=== PATIENT | female | born 2000 | race Caucasian/White ===

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

== ENCOUNTER 2018-02-28 21:31 | Emergency (ER) | payer BC, OTHER ==
[~2018-02-28] VITALS: Ht 172.7 cm; Wt 82.8 kg
[~2018-02-28 21:31] MED LIST changes: +ACET-1256 PO; -ESCI10TA17 PO; -GABA-112 PO; +IBUP-103 PO; -IBUP-1450 PO; +MULT-513 PO; -NAPR1TAB48 PO
[2018-02-28 21:39] VITALS: TEMP 36.7; Ht 172.7 cm; Wt 82.8 kg
[2018-02-28] MEDS ORDERED: ONDANSETRON INJ 2 MG/ML 2 ML VIAL IV STA (21:45)
[2018-02-28] MEDS ORDERED: PHENAZOPYRIDINE HCL 200 MG TAB PO STA (21:45)
[2018-02-28] MEDS ORDERED: SODIUM CHLORIDE 0.9% 1000ML 1,000 ML IV STA (21:45)
[2018-02-28] MEDS ORDERED: KETOROLAC TROMETHAMINE 30 MG/ML VIAL IV STA (21:45)
[2018-02-28 22:41] LABS: HEMATOCRIT 40.4 % (37-47); HEMOGLOBIN 13.7 g/dL (12.0-16.0); MEAN CELL VOLUME 98.5 fL (80-100); MEAN CORPUSCULAR HEMOGLOBIN 33.4 pg (25-34); MEAN CORPUSCULAR HGB CONC 33.9 g/dl (32-36); MEAN PLATELET VOLUME 9.9 fL (7.4-10.4); PLATELET COUNT 221 K/uL (130-400); RED CELL DISTRIBUTION WIDTH CV 12.1 % (11.5-14.5); RED CELL DISTRIBUTION WIDTH SD 43.7 fL (36.4-46.3); WHITE BLOOD COUNT 9.32 K/uL (4.8-10.8)
[2018-02-28] MEDS ORDERED: PHEN-876 PO (22:55)
[2018-02-28] MEDS ORDERED: SULF800T23 PO (22:55)
[2018-02-28 22:57] VITALS: BP 132/89; PULSE 95; O2SAT 96
[2018-02-28 22:59] LABS: CALCIUM 9.3 mg/dl (8.5-10.1); CREATININE 0.82 mg/dl (0.60-1.20); POTASSIUM 3.7 mmol/L (3.5-5.1)
--- NOTE | 2018-02-28 23:19 | EMERGENCY ROOM VISIT NOTE ---
ED Visit Note First contact with patient: 21:41 CHIEF COMPLAINT: Frequent and painful urination for 3 hours HISTORY OF PRESENT ILLNESS: Patient is a 18-year-old female with past medical history significant for dysautonomia/POTS and Chuck-Danlos syndrome who presents emergency department complete by her boyfriend for evaluation of urinary symptoms that started acutely a couple of hours ago. Patient reports that she just moved here from [place]. She reports burning with urination, urinary frequency, urgency and a sensation of incomplete emptying that started a couple of hours ago. She reports that she is prone to urinary tract infection secondarily to the Chuck-Danlos syndrome. Her last UTI was a couple of months ago. Patient reports only one history of a kidney infection and no history of kidney stones. She notes some mild midline low back pain, but no unilateral back or flank pain. She has been nauseous but has not vomited. No documented fevers. She took Azo and ibuprofen without relief of her symptoms and presently rates her discomfort a 7/10. She is sexually active with an IUD in place. She denies any vaginal discharge or chance of . REVIEW OF SYSTEMS: Review of systems as per HPI. All other systems reviewed were negative. 10 systems reviewed. PMH: Electronic medical records are reviewed and summarized as above/below. See Problem List. SOCIAL HISTORY: Patient lives locally with her boyfriend, just moved back after spending the summer in [place]. 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 She does not smoke. PHYSICAL EXAM: Vital Signs: Reviewed Nurse's notes. CONSTITUTIONAL: Patient is an uncomfortable appearing 18-year-old female who is awake and alert and laying on the gurney in mild distress due to her stated complaint. HEART: Tachycardic rate and rhythm. No murmur appreciated. LUNGS: Clear to auscultation. ABDOMEN: Bowel sounds are present. Abdomen is soft, nontender nondistended. No guarding or rebound. No suprapubic tenderness. No CVA tenderness. EMERGENCY DEPARTMENT COURSE: IV lock was initiated. Patient was hydrated with a liter of normal saline solution given Pyridium 200 mg orally, Zofran 4 mg IV and Toradol 30 mg IV. Urinalysis, CBC, PRP and serum hCG were performed. Patient was reassessed, and felt significantly improved. She was sitting comfortably on the gurney. She tolerated oral fluids. Heart rate had improved into the 90s. She rated her to pain a 2/10. Urine microscopy noted greater than 30 WBCs, no red blood cells. Urine culture is pending. CBC reveals a normal white count. She is not anemic. Electrolytes and renal functions are normal. Serum hCG is negative. Given the patient's symptoms, and urine microscopy I do feel prudent to cover her for a UTI, with urine culture pending. She will be placed on Bactrim. She was also prescribed Pyridium for symptomatic relief. She was educated on the worrisome signs or symptoms for which she should return to the emergency department, including but not limited to fevers, back or flank pain, vomiting or worsening symptoms. Patient expressed understanding of this and was agreeable. She was discharged to home in good condition. Differential diagnoses entertained included UTI, cystitis, interstitial cystitis , hemorrhagic cystitis, vaginitis, cervicitis, pyelonephritis, IUD complication , PID, tubo-ovarian abscess, among others. Medication reconciliation: I attest that I have personally reviewed the patient' s current medication list. Blood pressure screening: Patient was found to have a slightly elevated blood pressure due to circumstances. I do not believe that the patient requires hypertension monitoring. Problem List Medical Problems: (1) Back pain Status: Resolved (2) Dysautonomia Status: Chronic (3) Chuck-Danlos disease Status: Chronic (4) Fatigue Status: Resolved (5) Injury of left knee Status: Resolved (6) POTS (postural orthostatic tachycardia syndrome) Status: Chronic (7) SOB (shortness of breath) Status: Resolved (8) Vaginal candidiasis Status: Resolved Current/Historical Medications Scheduled Buspirone Hcl (Buspar), 15 MG PO BID Metoprolol Tartrate (Lopressor), 25 MG PO BID Multivitamins/Minerals (Mvi With Minerals), 1 TAB PO DAILY Phenazopyridine HCl (Pyridium), 200 MG PO TID Sulfa/Trimethoprim (Bactrim Ds 800MG/160MG), 1 TAB PO BID Scheduled PRN Acetaminophen (Tylenol), 1 TAB PO DAILY PRN for Pain Ibuprofen Tab (Advil), 400 MG PO BID PRN for Headache or Pain Trazodone Hcl (Trazodone), 50-150 MG PO HS PRN for Insomnia Allergies Coded Allergies: No Known Allergies (Unverified , 08/05/17) Vital Signs Date Time Temp Pulse Resp B/P (MAP) Pulse Ox O2 Delivery O2 Flow Rate FiO2 02/28/18 22:57 95 18 132/89 96 Room Air 02/28/18 21:39 36.7 131 18 143/89 96 Room Air Laboratory Results 02/28/18 22:20 02/28/18 22:20 Test 02/28/18 22:00 02/28/18 22:20 Urine Color ORANGE Urine Appearance SLIGHTLY CLOUDY (CLEAR) Urine pH (4.5-7.5) Urine Specific [place] 1.027 (1.000-1.030) Urine Protein NEG (NEG) Urine Glucose (UA) (NEG) Urine Ketones (NEG) Urine Occult Blood (NEG) Urine Nitrite (NEG) Urine Bilirubin (NEG) Urine Urobilinogen (NEG) Urine Leukocyte Esterase (NEG) Urine RBC 0-4 /hpf (0-4) Urine WBC >30 /hpf (0-5) Urine Epithelial Cells 10-20 /lpf (0-5) Urine Bacteria NEG (NEG) Urine Hyaline Casts 1-5 /lpf (0-5) Red Blood Count 4.10 M/uL (4.2-5.4) Mean Corpuscular Volume 98.5 fL (80-100) Mean Corpuscular Hemoglobin 33.4 pg (25-34) Mean Corpuscular Hemoglobin Concent 33.9 g/dl (32-36) RDW Standard Deviation 43.7 fL (36.4-46.3) RDW Coefficient of Variation 12.1 % (11.5-14.5) Mean Platelet Volume 9.9 fL (7.4-10.4) Anion Gap 7.0 mmol/L (3-11) Est Creatinine Clear Calc Drug Dose 123.4 ml/min Estimated GFR () 119.4 Estimated GFR (Non- 103.0 BUN/Creatinine Ratio 12.7 (10-20) Calcium Level 9.3 mg/dl (8.5-10.1) Medications Administered Medications (Trade) Dose Ordered Sig/Ping Route Start Time Stop Time Status Last Admin Dose Admin Sodium Chloride 1,000 ml @ 999 mls/hr Q1H1M STAT IV 02/28/18 21:45 02/28/18 22:45 DC 02/28/18 22:23 999 MLS/HR Ketorolac Tromethamine (Toradol Inj) 30 mg NOW STAT IV 02/28/18 21:45 02/28/18 21:54 DC 02/28/18 22:22 30 MG Ondansetron HCl (Zofran Inj) 4 mg NOW STAT IV 02/28/18 21:45 02/28/18 21:54 DC 02/28/18 22:22 4 MG Phenazopyridine HCl (Pyridium Tab) 200 mg NOW STAT PO 02/28/18 21:45 02/28/18 21:54 DC 02/28/18 22:22 200 MG Departure Information Impression Primary Impression: Urinary tract infection Prescriptions Phenazopyridine HCl (Pyridium) 200 Mg Tab 200 MG PO TID, #6 TAB Prov: Genie Apodaca PA 02/28/18 Sulfa/Trimethoprim (Bactrim Ds 800MG/160MG) Tab 1 TAB PO BID, #14 TAB Prov: Genie Apodaca PA 02/28/18 Referrals No Doctor, Assigned (PCP) Patient Instructions My [facility] Additional Instructions Trimethoprim-Sulfamethoxazole(Bactrim DS): Take one pill twice daily for 7 days for your urine infection. All antibiotics can cause diarrhea. If this occurs and you feel worse or it does not resolve in 1-2 days follow up with your doctor or return to the Emergency Department as this could be signs of serious underlying problems. Any medication can cause an allergic reaction, stop the pills immediately and return to the ER for rash, hives, breathing difficulties, or swelling. Pyridium 200mg: Take one pill three times daily as needed for urinary discomfort. This medication will turn your urine orange. This is normal and nothing to be concerned about. Ibuprofen(Motrin, Advil) may be used for fever or pain. Use 600mg every six hours as needed. Take with food. Avoid using more than 2400mg in a 24 hour period. Do not use 2400mg per day for more than three consecutive days without physician direction. Prolonged inappropriate use can lead to stomach upset or ulcers. This is available over the counter and typically comes in 200mg tablets. (AND/OR) Acetaminophen(Tylenol) may be used for fever or pain. Use 1000mg every eight hours as needed. Avoid using more than 3000mg in a 24 hour period. This is available over the counter. Read all the package inserts or medication information paperwork provided. If you have any questions or concerns call your primary provider, pharmacist or the ER for assistance. Rest and drink plenty of fluids. Continue current medications. Return to the ER immediately for worsening or persistent abdominal pain, vomiting, fevers, back or flank pain, worsening of your condition, or as needed. Follow up with your primary physician within 2-3 days for a recheck of the current condition.
[2018-02-28] MEDS ORDERED: PHENAZOPYRIDINE HOME PACK 200 MG VIAL PO ONE (23:30)
[2018-02-28] MEDS ORDERED: SEPTRA DS HOME PACK 1 EA VIAL PO ONE (23:30)
[2018-03-01] MEDS ORDERED: ACET1TAB84 PO (17:18)
[2018-03-01] MEDS ORDERED: CEPH500C PO (19:56)
[2018-03-01] MEDS ORDERED: SACC250C3 PO (19:56)
[2018-03-01] MEDS ORDERED: ONDA4TAB10 SL (19:58)
== END 2018-02-28 23:49 | disposition home or self-care (01) ==
LOC: C.EDB 21:33 → C.EDC 23:49
DX: N39.0 Urinary tract infection, site not specified (principal)

== ENCOUNTER 2018-03-01 16:27 | Emergency (ER) | payer OTHER ==
[~2018-03-01] VITALS: Ht 172.7 cm; Wt 83.2 kg
[~2018-03-01 16:27] MED LIST changes: +PHEN-876 PO; +SULF800T23 PO
[2018-03-01 16:33] VITALS: TEMP 37; Ht 172.7 cm; Wt 83.2 kg
[2018-03-01] MEDS ORDERED: KETOROLAC TROMETHAMINE 30 MG/ML VIAL IV STA (16:40)
[2018-03-01] MEDS ORDERED: ACETAMINOPHEN IV 100 ML IV STA (16:40)
[2018-03-01] MEDS ORDERED: SODIUM CHLORIDE 0.9% 1000ML 2,000 ML IV STA (16:40)
--- NOTE | 2018-03-01 16:53 | EMERGENCY ROOM VISIT NOTE ---
History Report prepared by Yesenia: Nelson Lopez Under the Supervision of: Dr. Wood Loredo M.D. First contact with patient: 16:37 Chief Complaint: ABDOMINAL PAIN Stated Complaint: SEVERE ABDOMINAL PAIN History of Present Illness The patient is a 18 year old female who presents to the Emergency Room with complaints of worsening lower abdominal pain that began four and a half hours ago. Patient states she was seen in the ER yesterday and was diagnosed with a UTI and discharged on Bactrim. She states she was told to return to the ER if her pain worsened. Patient states she came into the ER yesterday due to burning with urination but states that has resolved. She states she has taken 1 dose of her Bactrim. She adds she took ibuprofen after her abdominal pain symptoms began today. Patient adds she has nausea but not currently in the ER. Patient states she has a history of kidney infections last year. She denies a history of kidney stones. Patient has Kyleena and denies having a menstrual period. She states she has POTS which she takes Lopressor for. Patient states her last bowel movement was 2 hours ago and that it was normal. Patient denies fevers, vaginal bleeding/discharge, chills, cough, diarrhea, and congestion. Patient denies any concerns for an STI or a history of STIs. Patient is present with her boyfriend. Source of History: patient Onset: Four and a half hours ago Position: abdomen (Lower abdomen) Timing: worsening Modifying Factors (Relieving): other (None) Associated Symptoms: No fevers, No chills, No nausea, No diarrhea, No urinary symptoms Note: Negative vaginal bleeding/discharge. Review of Systems See HPI for pertinent positives and negatives. A total of ten systems were reviewed and were otherwise negative. Past Medical & Surgical Medical Problems: (1) Back pain (2) Dysautonomia (3) Chuck-Danlos disease (4) Fatigue (5) Injury of left knee (6) POTS (postural orthostatic tachycardia syndrome) (7) SOB (shortness of breath) (8) Vaginal candidiasis Family History Cancer Diabetes mellitus FHx: gallbladder disease Heart disease Hypertension Lung disease Social History Smoking Status: Never Smoker Alcohol Use: none Marital Status: Housing Status: lives with significant other Occupation Status: employed Current/Historical Medications Scheduled Buspirone Hcl (Buspar), 15 MG PO BID Cephalexin Monohydrate (Keflex), 500 MG PO BID Metoprolol Tartrate (Lopressor), 25 MG PO BID Ondasetron Odt (Zofran Odt), 4 MG SL Q6H Saccharomyces Boulardii (Florastor), 1 CAP PO BID Scheduled PRN Acetaminophen (Tylenol), 1 TAB PO DAILY PRN for Pain Ibuprofen Tab (Advil), 400 MG PO BID PRN for Headache or Pain Allergies Coded Allergies: No Known Allergies (Unverified , 03/01/18) Physical Exam Vital Signs Date Time Temp Pulse Resp B/P (MAP) Pulse Ox O2 Delivery O2 Flow Rate FiO2 03/01/18 20:09 85 18 112/73 99 03/01/18 18:33 84 20 106/61 98 Room Air 03/01/18 16:33 37.0 95 20 137/72 97 Room Air Physical Exam GENERAL: Awake, alert, fatigued, uncomfortable-appearing, in no distress HENT: Normocephalic, atraumatic. Oropharynx unremarkable. Mucous membranes are dry. EYES: Normal conjunctiva. Sclera non-icteric. NECK: Supple. No nuchal rigidity. FROM. No JVD. RESPIRATORY: Clear to auscultation. CARDIAC: Regular rate, normal rhythm. Extremities warm and well perfused. Pulses equal. ABDOMEN: Soft, non-distended. Mild lower abdominal tenderness to palpation. No rebound or guarding. No masses. RECTAL: Deferred. MUSCULOSKELETAL: Chest examination reveals no tenderness. The back is symmetrical on inspection without obvious abnormality. There is no CVA tenderness to palpation. No joint edema. LOWER EXTREMITIES: Calves are equal size bilaterally and non-tender. No edema. No discoloration. NEURO: Normal sensorium. No sensory or motor deficits noted. SKIN: No rash or jaundice noted. Medical Decision & Procedures Laboratory Results 03/01/18 17:22 Red Blood Count 3.93, Mean Corpuscular Volume 99.2, Mean Corpuscular Hemoglobin 33.8, Mean Corpuscular Hemoglobin Concent 34.1, Mean Platelet Volume 10.0, Neutrophils (%) (Auto) 71.2, Lymphocytes (%) (Auto) 22.7, Monocytes (%) (Auto) 5.5, Eosinophils (%) (Auto) 0.4, Basophils (%) (Auto) 0.1, Neutrophils # (Auto) 5.71, Lymphocytes # (Auto) 1.82, Monocytes # (Auto) 0.44, Eosinophils # (Auto) 0.03, Basophils # (Auto) 0.01 03/01/18 17:22 Test 03/01/18 15:20 03/01/18 17:22 Urine Color YELLOW Urine Appearance CLEAR (CLEAR) Urine pH 7.0 (4.5-7.5) Urine Specific [place] 1.006 (1.000-1.030) Urine Protein NEG (NEG) Urine Glucose (UA) NEG (NEG) Urine Ketones NEG (NEG) Urine Occult Blood NEG (NEG) Urine Nitrite NEG (NEG) Urine Bilirubin NEG (NEG) Urine Urobilinogen NEG (NEG) Urine Leukocyte Esterase NEG (NEG) White Blood Count 8.02 K/uL (4.8-10.8) Red Blood Count 3.93 M/uL (4.2-5.4) Hemoglobin 13.3 g/dL (12.0-16.0) Hematocrit 39.0 % (37-47) Mean Corpuscular Volume 99.2 fL (80-100) Mean Corpuscular Hemoglobin 33.8 pg (25-34) Mean Corpuscular Hemoglobin Concent 34.1 g/dl (32-36) Platelet Count 211 K/uL (130-400) Mean Platelet Volume 10.0 fL (7.4-10.4) Neutrophils (%) (Auto) 71.2 % Lymphocytes (%) (Auto) 22.7 % Monocytes (%) (Auto) 5.5 % Eosinophils (%) (Auto) 0.4 % Basophils (%) (Auto) 0.1 % Neutrophils # (Auto) 5.71 K/uL (1.4-6.5) Lymphocytes # (Auto) 1.82 K/uL (1.2-3.4) Monocytes # (Auto) 0.44 K/uL (0.11-0.59) Eosinophils # (Auto) 0.03 K/uL (0-0.5) Basophils # (Auto) 0.01 K/uL (0-0.2) RDW Standard Deviation 44.3 fL (36.4-46.3) RDW Coefficient of Variation 12.1 % (11.5-14.5) Immature Granulocyte % (Auto) 0.1 % Immature Granulocyte # (Auto) 0.01 K/uL (0.00-0.02) Anion Gap 4.0 mmol/L (3-11) Est Creatinine Clear Calc Drug Dose 112.7 ml/min Estimated GFR () 106.7 Estimated GFR (Non- 92.0 BUN/Creatinine Ratio 9.8 (10-20) Calcium Level 8.4 mg/dl (8.5-10.1) Total Bilirubin 0.5 mg/dl (0.2-1) Direct Bilirubin 0.1 mg/dl (0-0.2) Aspartate Amino Transf (AST/SGOT) 18 U/L (15-37) Alanine Aminotransferase (ALT/SGPT) 34 U/L (12-78) Alkaline Phosphatase 95 U/L (45-117) Total Protein 7.6 gm/dl (6.4-8.2) Albumin 4.0 gm/dl (3.4-5.0) Lipase 130 U/L (73-393) Human Chorionic Gonadotropin, Qual NEG (NEG) Laboratory results reviewed by me Medications Administered Medications (Trade) Dose Ordered Sig/Ping Route Start Time Stop Time Status Last Admin Dose Admin Sodium Chloride 2,000 ml @ 999 mls/hr Q2H1M STAT IV 03/01/18 16:40 03/01/18 18:40 DC 03/01/18 17:24 999 MLS/HR Ketorolac Tromethamine (Toradol Inj) 15 mg NOW STAT IV 03/01/18 16:40 03/01/18 16:45 DC 03/01/18 17:25 15 MG Acetaminophen 100 ml @ 400 mls/hr NOW STAT IV 03/01/18 16:40 03/01/18 16:54 DC 03/01/18 17:25 400 MLS/HR Cephalexin Monohydrate (Keflex Cap) 500 mg NOW STAT PO 03/01/18 19:51 03/01/18 19:53 DC 03/01/18 20:05 500 MG ED Course 1640: The patient was evaluated in room C2. A complete history and physical exam was performed. 2005: I reevaluated the patient. Discussed results and discharge instructions. She verbalized understanding and agreement. The patient is ready for discharge. Medical Decision I reviewed the patient's past medical history, medications, and the nursing notes as described above. Differential diagnosis: Etiologies such as appendicitis, diverticulitis, PUD, biliary pathology, UTI, pancreatitis, obstruction, mesenteric ischemia, aortic pathology, infections, inflammatory bowel disease, renal colic, as well as others were entertained. The patient is a 18-year-old woman with a past medical history of either his Danlos syndrome, TOT S syndrome presents emergency department with worsening lower abdominal/suprapubic pain after being seen in the ED yesterday for UTI discharged on Bactrim per hpi. On arrival patient is uncomfortable but no acute distress, afebrile stable vital signs. On exam patient has mild lower abdominal/suprapubic tenderness that is generalized throughout her lower abdomen without any discrete uterine lateral tenderness. Of note, the patient denies any vaginal discharge or concerns for STI's. Moreover she reports she is amenorrheic secondary to her indications. WBC within normal limits. Chemistry unremarkable. UA negative although after starting Bactrim. She was reevaluated and feeling improved after IV fluids, Toradol. Thus possibly related to GI upset related to Bactrim. We agreed to change to Keflex and see if her symptoms continue to improve. Patient constantly denies any concerns for STI's and therefore prefers to defer testing/exam/ultrasound. However, she is instructed to return should her symptoms continue to be worse as this should certainly be evaluated if not having any improvement. Findings and plan for follow-up reviewed with patient. Patient agreeable and d/c'd per discharge instructions. Medication Reconcilliation Current Medication List: was personally reviewed by me Blood Pressure Screening Patient's blood pressure: Normal blood pressure Blood pressure disposition: Did not require urgent referral Impression Primary Impression: Lower abdominal pain Scribe Attestation The scribe's documentation has been prepared under my direction and personally reviewed by me in its entirety. I confirm that the note above accurately reflects all work, treatment, procedures, and medical decision making performed by me. Departure Information Dispostion Home / Self-Care Prescriptions Ondasetron Odt (ZOFRAN ODT) 4 Mg Tab 4 MG SL Q6H for Nausea, #6 TAB Prov: Wood Loredo M.D. 03/01/18 Saccharomyces Boulardii (Florastor) 250 Mg Cap 1 CAP PO BID for 10 Days, #20 CAP Prov: Wood Loredo M.D. 03/01/18 Cephalexin Monohydrate (Keflex) 500 Mg Cap 500 MG PO BID for 5 Days, #10 CAP Prov: Wood Loredo M.D. 03/01/18 Referrals No Doctor, Assigned (PCP) Patient Instructions ED Abdominal Pain Unkn Cause, ED UTI Cystitis Female, My [facility] Additional Instructions Please follow up with your primary care physician in the next 1-3 days for re- evaluation. Your symptoms today may be related to GI upset related to your Bactrim or possibly residual symptoms from your UTI with associated mild dehydration. Otherwise, your exam and lab results did not show signs of an emergent condition at this time. Acetaminophen or ibuprofen for pain and fevers as needed. Keflex as directed. Florastor, probiotic, to help prevent antibiotic associated diarrhea. Zofran as needed for nausea. Drink plenty of fluids to ensure hydration. Return to the emergency department for worsening symptoms as described in the accompanying instructions.
[2018-03-01] MEDS ORDERED: ACET1TAB84 PO (17:18)
[2018-03-01 17:40] LABS: BASO % 0.1 %; BASO ABS # 0.01 K/uL (0-0.2); EOS % 0.4 %; EOS ABS # 0.03 K/uL (0-0.5); HEMOGLOBIN 13.3 g/dL (12.0-16.0); IG# 0.01 K/uL (0.00-0.02); LYMPH % 22.7 %; LYMPH ABS # 1.82 K/uL (1.2-3.4); MEAN CELL VOLUME 99.2 fL (80-100); MEAN CORPUSCULAR HEMOGLOBIN 33.8 pg (25-34); MEAN CORPUSCULAR HGB CONC 34.1 g/dl (32-36); MONO % 5.5 %; MONO ABS # 0.44 K/uL (0.11-0.59); NEUT % 71.2 %; NEUT ABS # 5.71 K/uL (1.4-6.5); PLATELET COUNT 211 K/uL (130-400); RED CELL DISTRIBUTION WIDTH CV 12.1 % (11.5-14.5); RED CELL DISTRIBUTION WIDTH SD 44.3 fL (36.4-46.3); WHITE BLOOD COUNT 8.02 K/uL (4.8-10.8)
[2018-03-01 18:03] LABS: CALCIUM 8.4 mg/dl (8.5-10.1); CREATININE 0.9 mg/dl (0.60-1.20); POTASSIUM 3.7 mmol/L (3.5-5.1); TOTAL PROTEIN 7.6 gm/dl (6.4-8.2)
[2018-03-01] MEDS ORDERED: CEPHALEXIN MONOHYDRATE 250 MG CAP PO STA (19:51)
[2018-03-01] MEDS ORDERED: CEPH500C PO (19:56)
[2018-03-01] MEDS ORDERED: SACC250C3 PO (19:56)
[2018-03-01] MEDS ORDERED: ONDA4TAB10 SL (19:58)
[2018-03-01 20:09] VITALS: BP 112/73; PULSE 85; O2SAT 99
== END 2018-03-01 20:09 | disposition home or self-care (01) ==
LOC: C.EDB 16:28 → C.EDC 20:09
DX: R10.30 Lower abdominal pain, unspecified (principal); Q79.6 Ehlers-Danlos syndromes

== ENCOUNTER 2021-04-20 13:00 | Inpatient (IN) ==
[2021-04-20] MEDS ORDERED: ACETAMINOPHEN 325 MG TAB PO STA (14:37)
--- NOTE | 2021-04-20 14:42 | Emergency Department Note ---
Impression & Plan Suicidal ideation, Depression ED Provider Note NAME: SHAY GILBERT AGE: 21 SEX: F ARRIVES VIA: Walk-In INFORMANT: Patient, ED PROVIDER(S): Wood Loredo MD CHIEF COMPLAINT: Suicidal ideawtion. PLAN: Disposition: Inpatient psychiatric treatment / [facility] MEDICAL DECISION MAKING: The patient is a pleasant 21-year-old woman with a past medical history of depression and suicidal ideation remotely who presents to the emergency department with symptoms of suicidal nation with thoughts of jumping off a bridge over the past 2 days which she reports is related to stress she has been experiencing in her marriage over the past couple of months. She reports that she does feel safe at home with her however. She denies any recent illness including fevers, chills, cough congestion, GI or symptoms. She does report that she feels hopeless. She denies any auditory hallucinations. She reports drinking some beer yesterday but does not drink alcohol regularly. She reports that she is interested in inpatient treatment and had initiated/sought out help today. On arrival the patient is melancholy appearing, easily tearful but no acute distress, afebrile stable vital signs. She has minor linear abrasions to the volar aspect of her left wrist. No significant laceration requiring repair. WBC, H/H, platelets wnl. Chemistry without acidosis. Electrolytes unremarkable. LFTs without significant abnormality. hcg negative. TSH wnl. UA without convincing evidence of infection. Drug screen negative. Covid-19 pcr negative. The patient was medically cleared. Evaluated by psychiatric CM and referral made to [facility] who accepted the patient. 201 signed. Triage Nursing notes reviewed and agree them. Prior medical records reviewed Vital Signs: reviewed and remarkable for no significant abnormalities Differential diagnosis: Mood disorder, infection, hypoglycemia, electrolyte abnormalities, cardiac sources, intracerebral event, toxicologic, trauma, neurologic, as well as other pathologies. ER treatment provided: See below. Laboratory studies: See below HPI: The patient is a pleasant 21-year-old woman with a past medical history of depression and suicidal ideation remotely who presents to the emergency department with symptoms of suicidal nation with thoughts of jumping off a bridge over the past 2 days which she reports is related to stress she has been experiencing in her marriage over the past couple of months. She reports that she does feel safe at home with her however. She denies any recent illness including fevers, chills, cough congestion, GI or symptoms. She does report that she feels hopeless. She denies any auditory hallucinations. She reports drinking some beer yesterday but does not drink alcohol regularly. She reports that she is interested in inpatient treatment and had initiated/sought out help today. ROS: See above HPI for pertinent positives & negatives. A total of 10 systems reviewed and were otherwise negative. PAST MEDICAL HISTORY:See Below PAST SURGICAL HISTORY:See Below FAMILY HISTORY:See Below SOCIAL HISTORY:See Below HOME MEDICATIONS:See Below ALLERGIES:See Below VITALS:See Below PHYSICAL EXAMINATION: GENERAL: Awake, alert, melancholy/tearful-appearing, in no distress HENT: Normocephalic, atraumatic. Oropharynx unremarkable. EYES: Normal conjunctiva. Sclera non-icteric. NECK: Supple. No nuchal rigidity. FROM. No JVD. RESPIRATORY: Clear to auscultation. CARDIAC: Regular rate, normal rhythm. Extremities warm and well perfused. Pulses equal. ABDOMEN: Soft, non-distended. No tenderness to palpation. No rebound or guarding. No masses. RECTAL: Deferred. MUSCULOSKELETAL: Chest examination reveals no tenderness. The back is symmetrical on inspection without obvious abnormality. There is no CVA tenderness to palpation. No joint edema. LOWER EXTREMITIES: Calves are equal size bilaterally and non-tender. No edema. No discoloration. NEURO: Normal sensorium. No sensory or motor deficits noted. SKIN: Linear abrasions to the volar aspect of the left wrist. No rash or jaundice noted. PSYCH: Reports SI with plan. Reports hopelessness. Denies hallucinations. 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 Pneumonia POTS (postural orthostatic tachycardia syndrome) Urinary tract bacterial infections Surgical History No significant past surgical history Family History Other No pertinent family history Social History Smoking Status: Never smoker Hx Alcohol Use: No Preferred Language: Yoruba Communication Ability: Effective Visual Impairment: No Limitations Hearing Ability: Normal Development Executive Required: No Beliefs That Will Affect Care: None current occupational status: employed Feels Safe at Home: Yes Assistive Devices: None Allergies Allergies Allergy/AdvReac Type Severity Reaction Status Date / Time No Known Allergies Allergy Verified 03/13/21 10:56 Home Meds Home Medications Medication Instructions Recorded Confirmed metoprolol succinate 100 mg 50 mg PO DAILY 01/22/20 04/21/21 tablet,extended release 24 hr Results & Data (ED) Vital Signs Vital Signs - 24 hr 04/20/21 13:43 04/20/21 14:16 Temperature 37.1 C Temperature Source Oral Pulse Rate 135 H Pulse Rate [Right Finger] 128 H Respiratory Rate 18 18 Respiratory Effort / Characteristics Non-Labored Spontaneous Non-Labored Spontaneous Respiratory Depth Normal Normal Blood Pressure 121/93 Blood Pressure [Left Arm] 118/88 Blood Pressure Mean 102 Blood Pressure Mean [Left Arm] 98 Blood Pressure Position Sitting Blood Pressure Position [Left Arm] Sitting Pulse Oximetry 96 96 Oxygen Delivery Method Room Air Room Air Sepsis Recent Fever Within 48 Hours No Sepsis New/Unexplained Change in Mental Status N/A Sepsis Action Taken by Nursing No Action Required Laboratory Data Attestation: I reviewed the patient's lab results. Result diagrams: 04/20/21 14:53 04/20/21 14:53 Lab Results 04/20/21 04/20/21 04/20/21 Range/Units 14:53 14:53 14:53 WBC 8.83 (4.8-10.8) K/uL RBC 4.07 L (4.2-5.4) M/uL Hgb 14.0 (12.0-16.0) g/dL Hct 41.7 (37-47) % MCV 102.5 H (80-100) fL MCH 34.4 H (25-34) pg MCHC 33.6 (32-36) g/dL RDW Std Deviation 44.3 (36.4-46.3) fL RDW Coeff of [place] 11.8 (11.5-14.5) % Plt Count 227 (130-400) K/uL MPV 9.7 (7.4-10.4) fL Immature Gran % (Auto) 0.1 % Neut % (Auto) 80.8 % Lymph % (Auto) 15.1 % Pine % (Auto) 3.7 % Eos % (Auto) 0.2 % Baso % (Auto) 0.1 % Neut # (Auto) 7.13 H (1.4-6.5) K/uL Lymph # (Auto) 1.33 (1.2-3.4) K/uL Pine # (Auto) 0.33 (0.11-0.59) K/uL Eos # (Auto) 0.02 (0-0.5) K/uL Baso # (Auto) 0.01 (0-0.2) K/uL Immature Gran # (Auto) 0.01 (0.00-0.02) K/uL Sodium 138 (136-145) mmol/L Potassium 4.0 (3.5-5.1) mmol/L Chloride 107 (98-107) mmol/L Carbon Dioxide 26 (21-32) mmol/L Anion Gap 5.0 (3-11) BUN 10 (7-18) mg/dl Creatinine 0.86 (0.6-1.2) mg/dl Est Cr Clr Drug Dosing 111.7 ml/min Est GFR ( Amer) 110.4 ml/min Est GFR (Non-Af Amer) 95.2 ml/min BUN/Creatinine Ratio 11.2 (10-20) Glucose 93 (70-99) mg/dl Calcium 8.9 (8.5-10.1) mg/dl Total Bilirubin 0.4 (0.2-1) mg/dl AST 22 (15-37) U/L ALT 54 (12-78) U/L Alkaline Phosphatase 76 (45-117) U/L Total Protein 8.1 (6.4-8.2) gm/dl Albumin 3.9 (3.4-5.0) gm/dl Globulin 4.2 H (2.5-4.0) gm/dl Albumin/Globulin Ratio 0.9 (0.9-2) TSH 1.650 (0.300-4.500) uIu/ml HCG, Qual (Negative) Urine Color Urine Appearance (Clear) Urine pH (4.5-7.5) Ur Specific [place] (1.000-1.030) Urine Protein (Negative) Urine Glucose (UA) (Negative) Urine Ketones (Negative) Urine Blood (Negative) Urine Nitrite (Negative) Urine Bilirubin (Negative) Urine Urobilinogen (Negative) Ur Leukocyte Esterase (Negative) Salicylates < 1.7 L (2.8-20) mg/dl Urine Opiates Screen (Neg) Ur Methadone, Qual (Neg) Acetaminophen < 2 L (10-30) ug/ml Urine Barbiturates (Neg) Ur Phencyclidine (PCP) (Neg) U Amphetamin/Meth Scrn (Neg) MDMA (Ecstasy) Screen (Neg) U Benzodiazepines Scrn (Neg) Ur Cocaine Metabolite (Neg) U Marijuana (THC) Screen (Neg) Ethyl Alcohol mg/dL (0-3) mg/dl COVID-19 Eval Order SARS-CoV-2 (PCR) (Negative) 04/20/21 04/20/21 04/20/21 Range/Units 14:53 14:53 15:20 WBC (4.8-10.8) K/uL RBC (4.2-5.4) M/uL Hgb (12.0-16.0) g/dL Hct (37-47) % MCV (80-100) fL MCH (25-34) pg MCHC (32-36) g/dL RDW Std Deviation (36.4-46.3) fL RDW Coeff of [place] (11.5-14.5) % Plt Count (130-400) K/uL MPV (7.4-10.4) fL Immature Gran % (Auto) % Neut % (Auto) % Lymph % (Auto) % Pine % (Auto) % Eos % (Auto) % Baso % (Auto) % Neut # (Auto) (1.4-6.5) K/uL Lymph # (Auto) (1.2-3.4) K/uL Pine # (Auto) (0.11-0.59) K/uL Eos # (Auto) (0-0.5) K/uL Baso # (Auto) (0-0.2) K/uL Immature Gran # (Auto) (0.00-0.02) K/uL Sodium (136-145) mmol/L Potassium (3.5-5.1) mmol/L Chloride (98-107) mmol/L Carbon Dioxide (21-32) mmol/L Anion Gap (3-11) BUN (7-18) mg/dl Creatinine (0.6-1.2) mg/dl Est Cr Clr Drug Dosing ml/min Est GFR ( Amer) ml/min Est GFR (Non-Af Amer) ml/min BUN/Creatinine Ratio (10-20) Glucose (70-99) mg/dl Calcium (8.5-10.1) mg/dl Total Bilirubin (0.2-1) mg/dl AST (15-37) U/L ALT (12-78) U/L Alkaline Phosphatase (45-117) U/L Total Protein (6.4-8.2) gm/dl Albumin (3.4-5.0) gm/dl Globulin (2.5-4.0) gm/dl Albumin/Globulin Ratio (0.9-2) TSH (0.300-4.500) uIu/ml HCG, Qual Negative (Negative) Urine Color Yellow Urine Appearance Clear (Clear) Urine pH 7.5 (4.5-7.5) Ur Specific [place] 1.024 (1.000-1.030) Urine Protein Negative (Negative) Urine Glucose (UA) Negative (Negative) Urine Ketones Negative (Negative) Urine Blood Negative (Negative) Urine Nitrite Negative (Negative) Urine Bilirubin Negative (Negative) Urine Urobilinogen Negative (Negative) Ur Leukocyte Esterase Negative (Negative) Salicylates (2.8-20) mg/dl Urine Opiates Screen (Neg) Ur Methadone, Qual (Neg) Acetaminophen (10-30) ug/ml Urine Barbiturates (Neg) Ur Phencyclidine (PCP) (Neg) U Amphetamin/Meth Scrn (Neg) MDMA (Ecstasy) Screen (Neg) U Benzodiazepines Scrn (Neg) Ur Cocaine Metabolite (Neg) U Marijuana (THC) Screen (Neg) Ethyl Alcohol mg/dL < 3.0 (0-3) mg/dl COVID-19 Eval Order SARS-CoV-2 (PCR) (Negative) 04/20/21 04/20/21 04/20/21 Range/Units 15:20 15:20 15:20 WBC (4.8-10.8) K/uL RBC (4.2-5.4) M/uL Hgb (12.0-16.0) g/dL Hct (37-47) % MCV (80-100) fL MCH (25-34) pg MCHC (32-36) g/dL RDW Std Deviation (36.4-46.3) fL RDW Coeff of [place] (11.5-14.5) % Plt Count (130-400) K/uL MPV (7.4-10.4) fL Immature Gran % (Auto) % Neut % (Auto) % Lymph % (Auto) % [place] % (Auto) % Eos % (Auto) % Baso % (Auto) % Neut # (Auto) (1.4-6.5) K/uL Lymph # (Auto) (1.2-3.4) K/uL [place] # (Auto) (0.11-0.59) K/uL Eos # (Auto) (0-0.5) K/uL Baso # (Auto) (0-0.2) K/uL Immature Gran # (Auto) (0.00-0.02) K/uL Sodium (136-145) mmol/L Potassium (3.5-5.1) mmol/L Chloride (98-107) mmol/L Carbon Dioxide (21-32) mmol/L Anion Gap (3-11) BUN (7-18) mg/dl Creatinine (0.6-1.2) mg/dl Est Cr Clr Drug Dosing ml/min Est GFR ( Amer) ml/min Est GFR (Non-Af Amer) ml/min BUN/Creatinine Ratio (10-20) Glucose (70-99) mg/dl Calcium (8.5-10.1) mg/dl Total Bilirubin (0.2-1) mg/dl AST (15-37) U/L ALT (12-78) U/L Alkaline Phosphatase (45-117) U/L Total Protein (6.4-8.2) gm/dl Albumin (3.4-5.0) gm/dl Globulin (2.5-4.0) gm/dl Albumin/Globulin Ratio (0.9-2) TSH (0.300-4.500) uIu/ml HCG, Qual (Negative) Urine Color Urine Appearance (Clear) Urine pH (4.5-7.5) Ur Specific [place] (1.000-1.030) Urine Protein (Negative) Urine Glucose (UA) (Negative) Urine Ketones (Negative) Urine Blood (Negative) Urine Nitrite (Negative) Urine Bilirubin (Negative) Urine Urobilinogen (Negative) Ur Leukocyte Esterase (Negative) Salicylates (2.8-20) mg/dl Urine Opiates Screen Neg (Neg) Ur Methadone, Qual Neg (Neg) Acetaminophen (10-30) ug/ml Urine Barbiturates Neg (Neg) Ur Phencyclidine (PCP) Neg (Neg) U Amphetamin/Meth Scrn Neg (Neg) MDMA (Ecstasy) Screen Neg (Neg) U Benzodiazepines Scrn Neg (Neg) Ur Cocaine Metabolite Neg (Neg) U Marijuana (THC) Screen Neg (Neg) Ethyl Alcohol mg/dL (0-3) mg/dl COVID-19 Eval Order Covid19 at [facility] SARS-CoV-2 (PCR) NEGATIVE (Negative) Administered Medications Hydroxyzine HCl (Hydroxyzine Hcl 25 Mg Tab) 50 mg PO HSZ PRN PRN Reason: Insomnia Stop: 05/20/21 18:17 Last Admin: 04/20/21 22:26 Dose: 50 mg Documented by: [id number] Discontinued Medications Acetaminophen (Acetaminophen 325 Mg Tab) 650 mg PO NOW STA Stop: 04/20/21 14:38 Last Admin: 04/20/21 15:21 Dose: 650 mg Documented by: [id number] Diazepam (Diazepam 5 Mg Tablet) 5 mg PO NOW ONE Stop: 04/20/21 18:35 Last Admin: 04/20/21 19:05 Dose: 5 mg Documented by: [id number] Ibuprofen (Ibuprofen 600 Mg Tab) 600 mg PO NOW STA Stop: 04/20/21 17:07 Last Admin: 04/20/21 17:48 Dose: 600 mg Documented by: [id number] Discharge Plan Visit Data Chief Complaint: Mental Health Evaluation Stated Complaint: [facility] ED Provider: Wood Loredo Discharge Problem: Suicidal ideation, Depression Patient Disposition: Admitted As Inpatient Discharge Instructions Interventions: ED Discharge Assessment Last Done: 04/20/21 18:35 Discharge Problem: Depression Qualifiers: Depression Type: unspecified Qualified Code(s): F32.9 - Major depressive disorder, single episode, unspecified
[2021-04-20 15:04] LABS: Basophils # (auto) 0.01 K/uL (0-0.2); Basophils % (auto) 0.1 %; Eosinophils # (auto) 0.02 K/uL (0-0.5); Eosinophils % (auto) 0.2 %; Hematocrit (blood only) 41.7 % (37-47); Immature Granulocytes # (auto) 0.01 K/uL (0.00-0.02); Immature Granulocytes % (auto) 0.1 %; Lymphocytes # (auto) 1.33 K/uL (1.2-3.4); Lymphocytes % (auto) 15.1 %; Mean Corpuscular Hemoglobin 34.4 pg (25-34); Mean Corpuscular Hgb Conc 33.6 g/dL (32-36); Mean Corpuscular Volume 102.5 fL (80-100); Mean Platelet Volume 9.7 fL (7.4-10.4); Monocytes # (auto) 0.33 K/uL (0.11-0.59); Monocytes % (auto) 3.7 %; Neutrophils # (auto) 7.13 K/uL (1.4-6.5); Neutrophils % (auto) 80.8 %; Platelet Count 227 K/uL (130-400); RDW Coefficient of Variation 11.8 % (11.5-14.5); RDW Standard Deviation 44.3 fL (36.4-46.3); Red Blood Count 4.07 M/uL (4.2-5.4); White Blood Count 8.83 K/uL (4.8-10.8)
[2021-04-20 15:12] LABS: Pregnancy Test, Serum Negative (Negative)
[2021-04-20 15:30] LABS: Acetaminophen < 2 ug/ml (10-30); Salicylate < 1.7 mg/dl (2.8-20)
[2021-04-20 15:31] LABS: Albumin Level 3.9 gm/dl (3.4-5.0); BUN Creatinine Ratio 11.2 (10-20); Calcium 8.9 mg/dl (8.5-10.1); Creatinine Clr Calc Pharmacy 111.7 ml/min; Est GFR (African American) 110.4 ml/min; Est GFR (Non-African American) 95.2 ml/min
[2021-04-20 15:33] LABS: Appearance Urine Clear (Clear); Bilirubin Urine Negative (Negative); Blood Urine Negative (Negative); Color Urine Yellow; Glucose Urine UA Negative (Negative); Ketones Urine Negative (Negative); Leukocyte Esterase Urine Negative (Negative); Nitrite Urine Negative (Negative); Protein Urine Negative (Negative); Specific Gravity Urine 1.024 (1.000-1.030); Urobilinogen Urine Negative (Negative); pH Urine 7.5 (4.5-7.5)
[2021-04-20 15:41] LABS: Albumin Globulin Ratio 0.9 (0.9-2); Bilirubin,Total 0.4 mg/dl (0.2-1); Globulin 4.2 gm/dl (2.5-4.0); Thyroid Stimulating Hormone 1.65 uIu/ml (0.300-4.500); Total Protein 8.1 gm/dl (6.4-8.2)
[2021-04-20 16:04] LABS: Amphetamines+Metham, Urine Neg (Neg); Barbiturates, Urine Neg (Neg); Benzodiazepine, Urine Neg (Neg); Cocaine, Urine Neg (Neg); MDMA (Ecstacy), Urine Neg (Neg); Methadone, Urine Neg (Neg); Opiate, Urine Neg (Neg); Phencyclidine, Urine Neg (Neg)
[2021-04-20] MEDS ORDERED: IBUPROFEN 600 MG TAB PO STA (17:06)
[2021-04-20] MEDS ORDERED: hydrOXYzine HCl 25 MG TAB PO PRN (18:18)
[2021-04-20] MEDS ORDERED: SODIUM CHLORIDE 0.65% NA SOLN 45 ML (OCEAN) PRN (18:18)
[2021-04-20] MEDS ORDERED: BISMUTH SUBSALICYLATE LIQD 236 ML PO PRN (18:18)
[2021-04-20] MEDS ORDERED: MAGNESIUM HYDROXIDE SUSP 30 ML UDC PO PRN (18:18)
[2021-04-20] MEDS ORDERED: diazePAM 5 MG TABLET PO ONE (18:34)
[2021-04-20] MEDS: hydrOXYzine HCl 25 MG TAB PO PRN (22:26)
[2021-04-21] MEDS ORDERED: VENLAFAXINE HCL XR 75 MG CAPXR PO SCH (09:00)
[2021-04-21] MEDS ORDERED: METOPROLOL SUCC 50MG EXT REL TAB PO SCH (09:00)
[2021-04-21] MEDS: METOPROLOL SUCC 50MG EXT REL TAB PO SCH (09:25)
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
[2021-04-21] MEDS: ACETAMINOPHEN 325 MG TAB PO PRN (16:54)
[2021-04-21] MEDS ORDERED: IBUPROFEN 600 MG TAB PO PRN (19:44)
[2021-04-21] MEDS: LORazepam 1 MG TAB PO PRN (20:02)
[2021-04-21] MEDS: PATIENT'S OWN ORAL CONTRACEPTIVE PO SCH (21:09)
[2021-04-21] MEDS: hydrOXYzine HCl 25 MG TAB PO PRN (21:33)
[2021-04-21] MEDS: ALUMINUM/MAGNESIUM SUSP 30 ML UDC PO PRN (21:34)
[2021-04-22] MEDS ORDERED: FLUoxetine HCL 10 MG CAP PO SCH (09:00)
[2021-04-22] MEDS: METOPROLOL SUCC 50MG EXT REL TAB PO SCH (09:30)
--- NOTE | 2021-04-22 11:09 | Psychiatric Progress Note ---
Date of Service April 22, 2021 Impression / Recommendations Impression 21-year-old female complaining of depression and anxiety as well as OCD symptoms affecting her life. Patient will benefit from inpatient hospitalization for purposes of safety, stabilization, medication management. (1) Suicidal ideation: (2) Depression: The patient was admitted to the [facility] ([facility] unit) on every 15 minute checks (behavioral with suicide precautions for safety. The patient will participate in group, recreational, and milieu therapies and will be offered additional individual and family sessions as clinically appropriate. 04/21/2021we will discontinue her Effexor in favor of Prozac which will start tomorrow at 10 mg. 04/22/21-- We will increase prozac to 20mg PO qam, starting tomorrow Protective Factors Assessment Employed: Yes (Full-time) Interval History Chief Complaint "I'm alright". Review of Systems Sleep Information Total Hours of Sleep: 6.5 Meal Information Percent Meal Consumed - Breakfast: 80 Percent Meal Consumed - Lunch: 100 Percent Meal Consumed - Dinner: 100 Subjective Subjective Patient seen, chart reviewed and case discussed with treatment team, nursing and social work. Patient reports a good night of sleep and strong appetite. No side effects reported or observed. She is complaint with new Prozac medication. Regarding mood, patient still reports depressed mood with low energy and motivation. I spent 30 minutes with the patient, 50% of which was dedicated to counselling and coordination of care. Physical Exam Psychiatric Orientation: alert and oriented x 3 Apperance: appropriately dressed Eye Contact: good eye contact Motor Behavior: no abnormal motor movements Speech: normal rate/rhythm/volume of speech Affect: + depressed affect and + tearful affect Mood: + depressed mood and + dysphoric mood Thought Process: linear/logical thought process Thought Content: reality based without delusions Suicidal Thoughts: + reports suicidal thoughts Homicidal Thoughts: denies homicidal thoughts Hallucinations: no auditory hallucinations and no visual hallucinations Cognition: remote memory grossly intact Estimated Intelligence: consistent with education level Insight: + fair insight Judgement: + fair judgement Vital Signs (Past 24 Hours) Last Vital Signs Temp 36.9 C 04/22/21 06:34 Pulse 88 04/22/21 06:34 Resp 16 04/22/21 06:34 BP 127/68 04/22/21 06:34 Pulse Ox 96 04/20/21 14:16 Results & Data ([facility]) Current Inpatient Medications Current Inpatient Medications: Current Inpatient Medications Acetaminophen (Acetaminophen 325 Mg Tab) 650 mg PO Q4H PRN PRN Reason: Headache or Minor Fever Stop: 05/20/21 18:17 Last Admin: 04/21/21 16:54 Dose: 650 mg Documented by: Al Hydrox/Mg Hydrox/Simethicone (Aluminum/Magnesium Susp 30 Ml Udc) 30 ml PO Q4H PRN PRN Reason: GI Upset Stop: 05/20/21 18:17 Last Admin: 04/21/21 21:34 Dose: 30 ml Documented by: Bismuth Subsalicylate (Bismuth Subsalicylate Liqd 236 Ml) 15 ml PO PRN PRN PRN Reason: Loose Stool Stop: 05/20/21 18:17 Fluoxetine HCl (Fluoxetine Hcl 10 Mg Cap) 10 mg PO QAM TREVER Stop: 05/22/21 08:59 Last Admin: 04/22/21 09:30 Dose: 10 mg Documented by: Hydroxyzine HCl (Hydroxyzine Hcl 25 Mg Tab) 50 mg PO HSZ PRN PRN Reason: Insomnia Stop: 05/20/21 18:17 Last Admin: 04/21/21 21:33 Dose: 50 mg Documented by: Hydroxyzine HCl (Hydroxyzine Hcl 25 Mg Tab) 25 mg PO Q4H PRN PRN Reason: Anxiety Stop: 05/20/21 18:17 Ibuprofen (Ibuprofen 600 Mg Tab) 600 mg PO Q8H PRN PRN Reason: Pain Stop: 05/21/21 19:43 Lorazepam (Lorazepam 1 Mg Tab) 1 mg PO Q8 PRN PRN Reason: Anxiety Stop: 05/21/21 11:40 Last Admin: 04/21/21 20:02 Dose: 1 mg Documented by: Magnesium Hydroxide (Magnesium Hydroxide Susp 30 Ml Udc) 30 ml PO DAILY PRN PRN Reason: Constipation Stop: 05/20/21 18:17 Metoprolol Succinate (Metoprolol Succ 50mg Ext Rel Tab) 50 mg PO QAM TREVER Stop: 05/21/21 08:59 Last Admin: 04/22/21 09:30 Dose: 50 mg Documented by: Miscellaneous (Patient's Own Oral Contraceptive) 1 ea PO HS TREVER Stop: 05/21/21 21:59 Last Admin: 04/21/21 21:09 Dose: 1 ea Documented by: Sodium Chloride (Sodium Chloride 0.65% Na Soln 45 Ml ([place])) 1 - 2 sprays NA PRN PRN PRN Reason: Nasal Dryness/Congestion Stop: 05/20/21 18:17 Post Discharge Appointments Primary Care Physician Name Of Family Doctor: Moises Redd Primary Care Provider Appointment Comment: [address], [place] Contact Information Discharge Discharge Address: [address] [place] [address] (1) Depression Depression Type: unspecified Qualified Code(s): F32.9 - Major depressive disorder, single episode, unspecified
[2021-04-22] MEDS: PATIENT'S OWN ORAL CONTRACEPTIVE PO SCH (20:23)
[2021-04-22] MEDS: ACETAMINOPHEN 325 MG TAB PO PRN (20:23)
[2021-04-22] MEDS: hydrOXYzine HCl 25 MG TAB PO PRN (21:30)
[2021-04-23] MEDS: METOPROLOL SUCC 50MG EXT REL TAB PO SCH (09:05)
[2021-04-23] MEDS: FLUoxetine HCL 20 MG CAP PO SCH (09:05)
--- NOTE | 2021-04-23 12:07 | Psychiatric Progress Note ---
Date of Service April 23, 2021 Impression / Recommendations Impression 21-year-old female complaining of depression and anxiety as well as OCD symptoms affecting her life. Patient will benefit from inpatient hospitalization for purposes of safety, stabilization, medication management. (1) Suicidal ideation: (2) Depression: The patient was admitted to the [facility] ([facility]) on every 15 minute checks (behavioral with suicide precautions for safety. The patient will participate in group, recreational, and milieu therapies and will be offered additional individual and family sessions as clinically appropriate. 04/21/2021we will discontinue her Effexor in favor of Prozac which will start tomorrow at 10 mg. 04/22/21-- We will increase prozac to 20mg PO qam, starting tomorrow 04/23/2021we will continue Prozac at 20 mg p.o. every morning. Patient making incremental progress. Protective Factors Assessment Employed: Yes (Full-time) Interval History Chief Complaint "I'm okay, just walking around to distract myself". Review of Systems Sleep Information Total Hours of Sleep: 8 Meal Information Percent Meal Consumed - Breakfast: 100 Percent Meal Consumed - Lunch: 100 Percent Meal Consumed - Dinner: 100 Subjective Subjective Patient seen, chart reviewed and case discussed with treatment team, nursing and social work. Patient reports a good night of sleep and strong appetite. No side effects reported or observed. Complaint with Prozac medication without issue. Regarding mood, patient reports some improvement which they attribute to the medications as well as the therapy they have received on the unit. Attends group, participates meaningfully. Engages with peers appropriately. I spent 30 minutes with the patient, 50% of which was dedicated to counselling and coordination of care. Physical Exam Psychiatric Orientation: alert and oriented x 3 Apperance: appropriately dressed Eye Contact: good eye contact Motor Behavior: no abnormal motor movements Speech: normal rate/rhythm/volume of speech Affect: + depressed affect and + tearful affect Mood: + depressed mood and + dysphoric mood Thought Process: linear/logical thought process Thought Content: reality based without delusions Suicidal Thoughts: + reports suicidal thoughts Homicidal Thoughts: denies homicidal thoughts Hallucinations: no auditory hallucinations and no visual hallucinations Cognition: remote memory grossly intact Estimated Intelligence: consistent with education level Insight: + fair insight Judgement: + fair judgement Vital Signs (Past 24 Hours) Last Vital Signs Temp 36.8 C 04/23/21 06:54 Pulse 114 H 04/23/21 06:54 Resp 16 04/23/21 06:54 BP 114/80 04/23/21 06:54 Pulse Ox 96 04/20/21 14:16 Results & Data ([facility]) Current Inpatient Medications Current Inpatient Medications: Current Inpatient Medications Acetaminophen (Acetaminophen 325 Mg Tab) 650 mg PO Q4H PRN PRN Reason: Headache or Minor Fever Stop: 05/20/21 18:17 Last Admin: 04/22/21 20:23 Dose: 650 mg Documented by: Al Hydrox/Mg Hydrox/Simethicone (Aluminum/Magnesium Susp 30 Ml Udc) 30 ml PO Q4H PRN PRN Reason: GI Upset Stop: 05/20/21 18:17 Last Admin: 04/21/21 21:34 Dose: 30 ml Documented by: Bismuth Subsalicylate (Bismuth Subsalicylate Liqd 236 Ml) 15 ml PO PRN PRN PRN Reason: Loose Stool Stop: 05/20/21 18:17 Fluoxetine HCl (Fluoxetine Hcl 20 Mg Cap) 20 mg PO QAM TREVER Stop: 05/23/21 08:59 Last Admin: 04/23/21 09:05 Dose: 20 mg Documented by: Hydroxyzine HCl (Hydroxyzine Hcl 25 Mg Tab) 50 mg PO HSZ PRN PRN Reason: Insomnia Stop: 05/20/21 18:17 Last Admin: 04/22/21 21:30 Dose: 50 mg Documented by: Hydroxyzine HCl (Hydroxyzine Hcl 25 Mg Tab) 25 mg PO Q4H PRN PRN Reason: Anxiety Stop: 05/20/21 18:17 Ibuprofen (Ibuprofen 600 Mg Tab) 600 mg PO Q8H PRN PRN Reason: Pain Stop: 05/21/21 19:43 Lorazepam (Lorazepam 1 Mg Tab) 1 mg PO Q8 PRN PRN Reason: Anxiety Stop: 05/21/21 11:40 Last Admin: 04/21/21 20:02 Dose: 1 mg Documented by: Magnesium Hydroxide (Magnesium Hydroxide Susp 30 Ml Udc) 30 ml PO DAILY PRN PRN Reason: Constipation Stop: 05/20/21 18:17 Metoprolol Succinate (Metoprolol Succ 50mg Ext Rel Tab) 50 mg PO QAM TREVER Stop: 05/21/21 08:59 Last Admin: 04/23/21 09:05 Dose: 50 mg Documented by: Miscellaneous (Patient's Own Oral Contraceptive) 1 ea PO HS TREVER Stop: 05/21/21 21:59 Last Admin: 04/22/21 20:23 Dose: 1 ea Documented by: Sodium Chloride (Sodium Chloride 0.65% Na Soln 45 Ml ([employer])) 1 - 2 sprays NA PRN PRN PRN Reason: Nasal Dryness/Congestion Stop: 05/20/21 18:17 Post Discharge Appointments Primary Care Physician Name Of Family Doctor: Moises Redd Primary Care Provider Appointment Comment: [address], [place] Contact Information Discharge Discharge Address: [address] [place] [address] (1) Depression Depression Type: unspecified Qualified Code(s): F32.9 - Major depressive disorder, single episode, unspecified
[2021-04-23] MEDS: ACETAMINOPHEN 325 MG TAB PO PRN (13:29)
[2021-04-23] MEDS: PATIENT'S OWN ORAL CONTRACEPTIVE PO SCH (20:56)
[2021-04-23] MEDS: hydrOXYzine HCl 25 MG TAB PO PRN (20:58)
[2021-04-24] MEDS: METOPROLOL SUCC 50MG EXT REL TAB PO SCH (08:36)
[2021-04-24] MEDS: FLUoxetine HCL 20 MG CAP PO SCH (08:37)
[2021-04-24] MEDS: LORazepam 1 MG TAB PO PRN (12:58)
--- NOTE | 2021-04-24 15:57 | Psychiatric Progress Note ---
Date of Service April 24, 2021 Impression / Recommendations Impression 21-year-old female complaining of depression and anxiety as well as OCD symptoms affecting her life. Patient will benefit from inpatient hospitalization for purposes of safety, stabilization, medication management. (1) Suicidal ideation: (2) Depression: The patient was admitted to the [facility] on every 15 minute checks (behavioral with suicide precautions for safety. The patient will participate in group, recreational, and milieu therapies and will be offered additional individual and family sessions as clinically appropriate. 04/21/2021we will discontinue her Effexor in favor of Prozac which will start tomorrow at 10 mg. 04/22/21-- We will increase prozac to 20mg PO qam, starting tomorrow 04/23/2021we will continue Prozac at 20 mg p.o. every morning. Patient making incremental progress. will increase patient's Prozac to 40 mg p.o. every morning starting tomorrow morning. Protective Factors Assessment Employed: Yes (Full-time) Interval History Chief Complaint "I'm okay today". Review of Systems Sleep Information Total Hours of Sleep: 7 Meal Information Percent Meal Consumed - Breakfast: 100 Percent Meal Consumed - Lunch: 100 Percent Meal Consumed - Dinner: 100 Subjective Subjective Patient seen, chart reviewed and case discussed with treatment team, nursing and social work. Patient reports a good night of sleep and strong appetite. No side effects reported or observed. Regarding mood, patient reports some improvement which they attribute to the medications as well as the therapy they have received on the unit. Patient is interactive in groups, appropriate with peers. Reports today being a better day and denies any SI. I spent 30 minutes with the patient, 50% of which was dedicated to counselling and coordination of care. Physical Exam Psychiatric Orientation: alert and oriented x 3 Apperance: appropriately dressed Eye Contact: good eye contact Motor Behavior: no abnormal motor movements Speech: normal rate/rhythm/volume of speech Affect: + depressed affect and + tearful affect Mood: + depressed mood and + dysphoric mood Thought Process: linear/logical thought process Thought Content: reality based without delusions Suicidal Thoughts: + reports suicidal thoughts Homicidal Thoughts: denies homicidal thoughts Hallucinations: no auditory hallucinations and no visual hallucinations Cognition: remote memory grossly intact Estimated Intelligence: consistent with education level Insight: + fair insight Judgement: + fair judgement Vital Signs (Past 24 Hours) Last Vital Signs Temp 36.5 C 04/24/21 06:49 Pulse 101 H 04/24/21 06:49 Resp 16 04/24/21 06:49 BP 120/73 04/24/21 06:49 Pulse Ox 96 04/20/21 14:16 Results & Data ([facility]) Current Inpatient Medications Current Inpatient Medications: Current Inpatient Medications Acetaminophen (Acetaminophen 325 Mg Tab) 650 mg PO Q4H PRN PRN Reason: Headache or Minor Fever Stop: 05/20/21 18:17 Last Admin: 04/23/21 13:29 Dose: 650 mg Documented by: Al Hydrox/Mg Hydrox/Simethicone (Aluminum/Magnesium Susp 30 Ml Udc) 30 ml PO Q4H PRN PRN Reason: GI Upset Stop: 05/20/21 18:17 Last Admin: 04/21/21 21:34 Dose: 30 ml Documented by: Bismuth Subsalicylate (Bismuth Subsalicylate Liqd 236 Ml) 15 ml PO PRN PRN PRN Reason: Loose Stool Stop: 05/20/21 18:17 Fluoxetine HCl (Fluoxetine Hcl 20 Mg Cap) 20 mg PO QAM TREVER Stop: 05/23/21 08:59 Last Admin: 04/24/21 08:37 Dose: 20 mg Documented by: Hydroxyzine HCl (Hydroxyzine Hcl 25 Mg Tab) 50 mg PO HSZ PRN PRN Reason: Insomnia Stop: 05/20/21 18:17 Last Admin: 04/23/21 20:58 Dose: 50 mg Documented by: Hydroxyzine HCl (Hydroxyzine Hcl 25 Mg Tab) 25 mg PO Q4H PRN PRN Reason: Anxiety Stop: 05/20/21 18:17 Ibuprofen (Ibuprofen 600 Mg Tab) 600 mg PO Q8H PRN PRN Reason: Pain Stop: 05/21/21 19:43 Last Admin: 04/23/21 20:57 Dose: 600 mg Documented by: Lorazepam (Lorazepam 1 Mg Tab) 1 mg PO Q8 PRN PRN Reason: Anxiety Stop: 05/21/21 11:40 Last Admin: 04/24/21 12:58 Dose: 1 mg Documented by: Magnesium Hydroxide (Magnesium Hydroxide Susp 30 Ml Udc) 30 ml PO DAILY PRN PRN Reason: Constipation Stop: 05/20/21 18:17 Metoprolol Succinate (Metoprolol Succ 50mg Ext Rel Tab) 50 mg PO QAM TREVER Stop: 05/21/21 08:59 Last Admin: 04/24/21 08:36 Dose: 50 mg Documented by: Miscellaneous (Patient's Own Oral Contraceptive) 1 ea PO HS TREVER Stop: 05/21/21 21:59 Last Admin: 04/23/21 20:56 Dose: 1 ea Documented by: Sodium Chloride (Sodium Chloride 0.65% Na Soln 45 Ml ([place])) 1 - 2 sprays NA PRN PRN PRN Reason: Nasal Dryness/Congestion Stop: 05/20/21 18:17 Mental Health & Subst Abuse Tx Psychiatrist Name of Psychiatrist: Patrice- referral being made at therapy intake Psychiatrist's Date of Appointment with Psychiatrist: 05/02/21 Time of Appointment with Psychiatrist: 1pm Psychiatric Appointment Comment: [phone] Therapist Name of Therapist: Patrice- intake Therapist's Date of Therapist Appointment: 05/02/21 Time of Therapist Appointment: 1pm Therapy Appointment Comment: [id number] Post Discharge Appointments Primary Care Physician Name Of Family Doctor: Moises Redd Primary [facility] Date of Appointment with PCP: 05/02/21 Time of Appointment with PCP: 11:00 AM Provider Appointment Comment: [address] [facility], [place] Contact Information Discharge Discharge Address: [address] [place] [address] [address] [id number] (1) Depression Depression Type: unspecified Qualified Code(s): F32.9 - Major depressive disorder, single episode, unspecified
[2021-04-24] MEDS: PATIENT'S OWN ORAL CONTRACEPTIVE PO SCH (21:43)
[2021-04-25] MEDS: FLUoxetine HCL 20 MG CAP PO SCH (08:43)
[2021-04-25] MEDS: METOPROLOL SUCC 50MG EXT REL TAB PO SCH (08:44)
[2021-04-25 10:40] LABS: Pregnancy Test, Serum Negative (Negative)
--- NOTE | 2021-04-25 11:37 | Psychiatric Progress Note ---
Date of Service April 25, 2021 Impression / Recommendations Impression 21-year-old female complaining of depression and anxiety as well as OCD symptoms affecting her life. Patient will benefit from inpatient hospitalization for purposes of safety, stabilization, medication management. (1) Suicidal ideation: (2) Depression: The patient was admitted to the [facility] ([facility] unit) on every 15 minute checks (behavioral with suicide precautions for safety. The patient will participate in group, recreational, and milieu therapies and will be offered additional individual and family sessions as clinically appropriate. 04/21/2021we will discontinue her Effexor in favor of Prozac which will start tomorrow at 10 mg. 04/22/21-- We will increase prozac to 20mg PO qam, starting tomorrow 04/23/2021we will continue Prozac at 20 mg p.o. every morning. Patient making incremental progress. 04/24/2021we will increase patient's Prozac to 40 mg p.o. every morning starting tomorrow morning. 04/25/2021--patient continues to make good progress. We will continue the regimen of Prozac 40 mg p.o. every morning. Protective Factors Assessment Employed: Yes (Full-time) Interval History Chief Complaint "I am feeling better". Review of Systems Sleep Information Total Hours of Sleep: 7.25 Sleep Comments: pt on q-15 minute checks Meal Information Percent Meal Consumed - Breakfast: 100 Percent Meal Consumed - Lunch: 100 Percent Meal Consumed - Dinner: 50 Subjective Subjective Patient seen, chart reviewed and case discussed with treatment team, nursing and social work. Patient reports a good night of sleep and strong appetite. No side effects reported or observed. Patient denies any adverse effects of the increased dosage of Prozac medication. She reports that it is helped her with her OCD as she has not felt the need to be as tight. Patient was informed that medication will continue to work and provide more relief as the weeks go on. Regarding mood, patient reports some improvement which they attribute to the medications as well as the therapy they have received on the unit. Patient continues to do well in groups, interact with peers. She is denying any suicidal ideation at this time. I spent 30 minutes with the patient, 50% of which was dedicated to counselling and coordination of care. Physical Exam Psychiatric Orientation: alert and oriented x 3 Apperance: appropriately dressed Eye Contact: good eye contact Motor Behavior: no abnormal motor movements Speech: normal rate/rhythm/volume of speech Affect: + depressed affect and + tearful affect Mood: + depressed mood and + dysphoric mood Thought Process: linear/logical thought process Thought Content: reality based without delusions Suicidal Thoughts: denies suicidal thoughts Homicidal Thoughts: denies homicidal thoughts Hallucinations: no auditory hallucinations and no visual hallucinations Cognition: remote memory grossly intact Estimated Intelligence: consistent with education level Insight: + fair insight Judgement: + fair judgement Vital Signs (Past 24 Hours) Last Vital Signs Temp 36.7 C 04/25/21 06:32 Pulse 91 H 04/25/21 10:31 Resp 16 04/25/21 06:32 BP 118/83 04/25/21 10:31 Pulse Ox 96 04/20/21 14:16 Results & Data ([facility]) Laboratory Results Laboratory Results - last 24 hr 04/25/21 10:03 HCG, Qual Negative Current Inpatient Medications Current Inpatient Medications: Current Inpatient Medications Acetaminophen (Acetaminophen 325 Mg Tab) 650 mg PO Q4H PRN PRN Reason: Headache or Minor Fever Stop: 05/20/21 18:17 Last Admin: 04/23/21 13:29 Dose: 650 mg Documented by: Al Hydrox/Mg Hydrox/Simethicone (Aluminum/Magnesium Susp 30 Ml Udc) 30 ml PO Q4H PRN PRN Reason: GI Upset Stop: 05/20/21 18:17 Last Admin: 04/21/21 21:34 Dose: 30 ml Documented by: Bismuth Subsalicylate (Bismuth Subsalicylate Liqd 236 Ml) 15 ml PO PRN PRN PRN Reason: Loose Stool Stop: 05/20/21 18:17 Fluoxetine HCl (Fluoxetine Hcl 20 Mg Cap) 40 mg PO QAM TREVER Stop: 05/25/21 08:59 Last Admin: 04/25/21 08:43 Dose: 40 mg Documented by: Hydroxyzine HCl (Hydroxyzine Hcl 25 Mg Tab) 50 mg PO HSZ PRN PRN Reason: Insomnia Stop: 05/20/21 18:17 Last Admin: 04/23/21 20:58 Dose: 50 mg Documented by: Hydroxyzine HCl (Hydroxyzine Hcl 25 Mg Tab) 25 mg PO Q4H PRN PRN Reason: Anxiety Stop: 05/20/21 18:17 Ibuprofen (Ibuprofen 600 Mg Tab) 600 mg PO Q8H PRN PRN Reason: Pain Stop: 05/21/21 19:43 Last Admin: 04/23/21 20:57 Dose: 600 mg Documented by: Lorazepam (Lorazepam 1 Mg Tab) 1 mg PO Q8 PRN PRN Reason: Anxiety Stop: 05/21/21 11:40 Last Admin: 04/24/21 12:58 Dose: 1 mg Documented by: Magnesium Hydroxide (Magnesium Hydroxide Susp 30 Ml Udc) 30 ml PO DAILY PRN PRN Reason: Constipation Stop: 05/20/21 18:17 Metoprolol Succinate (Metoprolol Succ 50mg Ext Rel Tab) 50 mg PO QAM TREVER Stop: 05/21/21 08:59 Last Admin: 04/25/21 08:44 Dose: 50 mg Documented by: Miscellaneous (Patient's Own Oral Contraceptive) 1 ea PO HS TREVER Stop: 05/21/21 21:59 Last Admin: 04/24/21 21:43 Dose: 1 ea Documented by: Sodium Chloride (Sodium Chloride 0.65% Na Soln 45 Ml ([place])) 1 - 2 sprays NA PRN PRN PRN Reason: Nasal Dryness/Congestion Stop: 05/20/21 18:17 Mental Health & Subst Abuse Tx Psychiatrist Name of Psychiatrist: Patrice- referral being made at therapy intake Psychiatrist's Date of Appointment with Psychiatrist: 05/02/21 Time of Appointment with Psychiatrist: 1pm Psychiatric Appointment Comment: [phone] Therapist Name of Therapist: Patrice- intake Therapist's Date of Therapist Appointment: 05/02/21 Time of Therapist Appointment: 1pm Therapy Appointment Comment: [id number] Post Discharge Appointments Primary Care Physician Name Of Family Doctor: Moises Redd Primary Care Date of Appointment with PCP: 05/02/21 Time of Appointment with PCP: 11:00 AM Provider Appointment Comment: [address] [facility] Contact Information Discharge Discharge Address: [address] [place] [address] [address] [place] [id number] (1) Depression Depression Type: unspecified Qualified Code(s): F32.9 - Major depressive disorder, single episode, unspecified
[2021-04-25] MEDS: ACETAMINOPHEN 325 MG TAB PO PRN ×2 (13:21→20:36)
[2021-04-25] MEDS: PATIENT'S OWN ORAL CONTRACEPTIVE PO SCH (20:37)
[2021-04-26] MEDS: METOPROLOL SUCC 50MG EXT REL TAB PO SCH (09:12)
[2021-04-26] MEDS: FLUoxetine HCL 20 MG CAP PO SCH (09:12)
--- NOTE | 2021-04-26 12:09 | Psychiatric Progress Note ---
Date of Service April 26, 2021 Impression / Recommendations Impression 21-year-old female complaining of depression and anxiety as well as OCD symptoms affecting her life. Patient will benefit from inpatient hospitalization for purposes of safety, stabilization, medication management. (1) Suicidal ideation: (2) Depression: The patient was admitted to the [facility] ([facility] health unit) on every 15 minute checks (behavioral with suicide precautions for safety. The patient will participate in group, recreational, and milieu therapies and will be offered additional individual and family sessions as clinically appropriate. 04/21/2021we will discontinue her Effexor in favor of Prozac which will start tomorrow at 10 mg. 04/22/21-- We will increase prozac to 20mg PO qam, starting tomorrow 04/23/2021we will continue Prozac at 20 mg p.o. every morning. Patient making incremental progress. 04/24/2021we will increase patient's Prozac to 40 mg p.o. every morning starting tomorrow morning. 04/25/2021--patient continues to make good progress. We will continue the regimen of Prozac 40 mg p.o. every morning. 04/26/2021-- Patient continues to make good progress. Will continue with Prozac 40mg p.o. every morning. Protective Factors Assessment Employed: Yes (Full-time) Interval History Chief Complaint "I had a bad dream". Review of Systems Sleep Information Total Hours of Sleep: 6.5 Sleep Comments: pt on q-15 minute checks Meal Information Percent Meal Consumed - Breakfast: 100 Percent Meal Consumed - Lunch: 100 Percent Meal Consumed - Dinner: 100 Subjective Subjective Patient seen, chart reviewed and case discussed with treatment team, nursing and social work. Patient reports a good night of sleep and strong appetite. No side effects reported or observed. Regarding mood, patient reports that she had a bad dream last night which contributed to her low mood this morning. After speaking with therapist and assembly instructions writer she reports feeling better. We discussed proposed discharge date of Friday and patient was in agreement. I spent 30 minutes with the patient, 50% of which was dedicated to counselling and coordination of care. Physical Exam Psychiatric Orientation: alert and oriented x 3 Apperance: appropriately dressed Eye Contact: good eye contact Motor Behavior: no abnormal motor movements Speech: normal rate/rhythm/volume of speech Affect: + depressed affect and + tearful affect Mood: + depressed mood and + dysphoric mood Thought Process: linear/logical thought process Thought Content: reality based without delusions Suicidal Thoughts: denies suicidal thoughts Homicidal Thoughts: denies homicidal thoughts Hallucinations: no auditory hallucinations and no visual hallucinations Cognition: remote memory grossly intact Estimated Intelligence: consistent with education level Insight: + fair insight Judgement: + fair judgement Vital Signs (Past 24 Hours) Last Vital Signs Temp 36.6 C 04/26/21 06:29 Pulse 89 04/26/21 06:29 Resp 16 04/26/21 06:29 BP 104/68 04/26/21 06:29 Pulse Ox 96 04/20/21 14:16 Results & Data ([facility]) Current Inpatient Medications Current Inpatient Medications: Current Inpatient Medications Acetaminophen (Acetaminophen 325 Mg Tab) 650 mg PO Q4H PRN PRN Reason: Headache or Minor Fever Stop: 05/20/21 18:17 Last Admin: 04/25/21 20:36 Dose: 650 mg Documented by: Al Hydrox/Mg Hydrox/Simethicone (Aluminum/Magnesium Susp 30 Ml Udc) 30 ml PO Q4H PRN PRN Reason: GI Upset Stop: 05/20/21 18:17 Last Admin: 04/21/21 21:34 Dose: 30 ml Documented by: Bismuth Subsalicylate (Bismuth Subsalicylate Liqd 236 Ml) 15 ml PO PRN PRN PRN Reason: Loose Stool Stop: 05/20/21 18:17 Fluoxetine HCl (Fluoxetine Hcl 20 Mg Cap) 40 mg PO QAM TREVER Stop: 05/25/21 08:59 Last Admin: 04/26/21 09:12 Dose: 40 mg Documented by: Hydroxyzine HCl (Hydroxyzine Hcl 25 Mg Tab) 50 mg PO HSZ PRN PRN Reason: Insomnia Stop: 05/20/21 18:17 Last Admin: 04/23/21 20:58 Dose: 50 mg Documented by: Hydroxyzine HCl (Hydroxyzine Hcl 25 Mg Tab) 25 mg PO Q4H PRN PRN Reason: Anxiety Stop: 05/20/21 18:17 Ibuprofen (Ibuprofen 600 Mg Tab) 600 mg PO Q8H PRN PRN Reason: Pain Stop: 05/21/21 19:43 Last Admin: 04/23/21 20:57 Dose: 600 mg Documented by: Lorazepam (Lorazepam 1 Mg Tab) 1 mg PO Q8 PRN PRN Reason: Anxiety Stop: 05/21/21 11:40 Last Admin: 04/24/21 12:58 Dose: 1 mg Documented by: Magnesium Hydroxide (Magnesium Hydroxide Susp 30 Ml Udc) 30 ml PO DAILY PRN PRN Reason: Constipation Stop: 05/20/21 18:17 Metoprolol Succinate (Metoprolol Succ 50mg Ext Rel Tab) 50 mg PO QAM TREVER Stop: 05/21/21 08:59 Last Admin: 04/26/21 09:12 Dose: 50 mg Documented by: Miscellaneous (Patient's Own Oral Contraceptive) 1 ea PO HS TREVER Stop: 05/21/21 21:59 Last Admin: 04/25/21 20:37 Dose: 1 ea Documented by: Sodium Chloride (Sodium Chloride 0.65% Na Soln 45 Ml ([place])) 1 - 2 sprays NA PRN PRN PRN Reason: Nasal Dryness/Congestion Stop: 05/20/21 18:17 Mental Health & Subst Abuse Tx Psychiatrist Name of Psychiatrist: Patrice- referral being made at therapy intake Psychiatrist's Date of Appointment with Psychiatrist: 05/02/21 Time of Appointment with Psychiatrist: 1pm Psychiatric Appointment Comment: [phone] Therapist Name of Therapist: Matteoar- intake Therapist's Date of Therapist Appointment: 05/02/21 Time of Therapist Appointment: 1pm Therapy Appointment Comment: [phone] Post Discharge Appointments Primary Care Physician Name Of Family Doctor: Moises Redd Primary Care Date of Appointment with PCP: 05/02/21 Time of Appointment with PCP: 11:00 AM Provider Appointment Comment: [address] [place] Contact Information Discharge Discharge Address: [address] [place] [address] [address] [address] (1) Depression Depression Type: unspecified Qualified Code(s): F32.9 - Major depressive disorder, single episode, unspecified
[2021-04-26] MEDS: ALUMINUM/MAGNESIUM SUSP 30 ML UDC PO PRN (17:24)
[2021-04-26] MEDS: PATIENT'S OWN ORAL CONTRACEPTIVE PO SCH (20:25)
[2021-04-27] MEDS: METOPROLOL SUCC 50MG EXT REL TAB PO SCH (09:12)
[2021-04-27] MEDS: FLUoxetine HCL 20 MG CAP PO SCH (09:12)
--- NOTE | 2021-04-27 10:19 | Psychiatric Progress Note ---
Date of Service April 27, 2021 Impression / Recommendations Impression 21-year-old female complaining of depression and anxiety as well as OCD symptoms affecting her life. Patient will benefit from inpatient hospitalization for purposes of safety, stabilization, medication management. (1) Suicidal ideation: (2) Depression: The patient was admitted to the [facility] ([facility]) on every 15 minute checks (behavioral with suicide precautions for safety. The patient will participate in group, recreational, and milieu therapies and will be offered additional individual and family sessions as clinically appropriate. 04/21/2021we will discontinue her Effexor in favor of Prozac which will start tomorrow at 10 mg. 04/22/21-- We will increase prozac to 20mg PO qam, starting tomorrow 04/23/2021we will continue Prozac at 20 mg p.o. every morning. Patient making incremental progress. 04/24/2021we will increase patient's Prozac to 40 mg p.o. every morning starting tomorrow morning. 04/25/2021--patient continues to make good progress. We will continue the regimen of Prozac 40 mg p.o. every morning. 04/26/2021-- Patient continues to make good progress. Will continue with Prozac 40mg p.o. every morning. 04/27/2021atient continues to make good progress. We will anticipate discharge tomorrow. Protective Factors Assessment Employed: Yes (Full-time) Interval History Chief Complaint "Good morning". Review of Systems Sleep Information Total Hours of Sleep: 6.5 Sleep Comments: pt on q-15 minute checks Meal Information Percent Meal Consumed - Breakfast: 100 Percent Meal Consumed - Lunch: 100 Percent Meal Consumed - Dinner: 100 Subjective Subjective Patient seen, chart reviewed and case discussed with treatment team, nursing and social work. Patient reports 6-1/2 hours of sleep and strong appetite. Compliant with medications. No side effects reported or observed. Regarding mood, patient reports some improvement which they attribute to the medications as well as the therapy they have received on the unit. I spent 30 minutes with the patient, 50% of which was dedicated to counselling and coordination of care. Physical Exam Psychiatric Orientation: alert and oriented x 3 Apperance: appropriately dressed Eye Contact: good eye contact Motor Behavior: no abnormal motor movements Speech: normal rate/rhythm/volume of speech Affect: + depressed affect and + tearful affect Mood: + depressed mood and + dysphoric mood Thought Process: linear/logical thought process Thought Content: reality based without delusions Suicidal Thoughts: denies suicidal thoughts Homicidal Thoughts: denies homicidal thoughts Hallucinations: no auditory hallucinations and no visual hallucinations Cognition: remote memory grossly intact Estimated Intelligence: consistent with education level Insight: + fair insight Judgement: + fair judgement Vital Signs (Past 24 Hours) Last Vital Signs Temp 36.6 C 04/27/21 06:37 Pulse 85 04/27/21 06:37 Resp 16 04/27/21 06:37 BP 107/67 04/27/21 06:37 Pulse Ox 96 04/20/21 14:16 Results & Data ([facility]) Current Inpatient Medications Current Inpatient Medications: Current Inpatient Medications Acetaminophen (Acetaminophen 325 Mg Tab) 650 mg PO Q4H PRN PRN Reason: Headache or Minor Fever Stop: 05/20/21 18:17 Last Admin: 04/25/21 20:36 Dose: 650 mg Documented by: Al Hydrox/Mg Hydrox/Simethicone (Aluminum/Magnesium Susp 30 Ml Udc) 30 ml PO Q4H PRN PRN Reason: GI Upset Stop: 05/20/21 18:17 Last Admin: 04/26/21 17:24 Dose: 30 ml Documented by: Bismuth Subsalicylate (Bismuth Subsalicylate Liqd 236 Ml) 15 ml PO PRN PRN PRN Reason: Loose Stool Stop: 05/20/21 18:17 Fluoxetine HCl (Fluoxetine Hcl 20 Mg Cap) 40 mg PO QAM TREVER Stop: 05/25/21 08:59 Last Admin: 04/27/21 09:12 Dose: 40 mg Documented by: Hydroxyzine HCl (Hydroxyzine Hcl 25 Mg Tab) 50 mg PO HSZ PRN PRN Reason: Insomnia Stop: 05/20/21 18:17 Last Admin: 04/23/21 20:58 Dose: 50 mg Documented by: Hydroxyzine HCl (Hydroxyzine Hcl 25 Mg Tab) 25 mg PO Q4H PRN PRN Reason: Anxiety Stop: 05/20/21 18:17 Last Admin: 04/26/21 14:52 Dose: 25 mg Documented by: Ibuprofen (Ibuprofen 600 Mg Tab) 600 mg PO Q8H PRN PRN Reason: Pain Stop: 05/21/21 19:43 Last Admin: 04/23/21 20:57 Dose: 600 mg Documented by: Lorazepam (Lorazepam 1 Mg Tab) 1 mg PO Q8 PRN PRN Reason: Anxiety Stop: 05/21/21 11:40 Last Admin: 04/24/21 12:58 Dose: 1 mg Documented by: Magnesium Hydroxide (Magnesium Hydroxide Susp 30 Ml Udc) 30 ml PO DAILY PRN PRN Reason: Constipation Stop: 05/20/21 18:17 Metoprolol Succinate (Metoprolol Succ 50mg Ext Rel Tab) 50 mg PO QAM TREVER Stop: 05/21/21 08:59 Last Admin: 04/27/21 09:12 Dose: 50 mg Documented by: Miscellaneous (Patient's Own Oral Contraceptive) 1 ea PO HS TREVER Stop: 05/21/21 21:59 Last Admin: 04/26/21 20:25 Dose: 1 ea Documented by: Sodium Chloride (Sodium Chloride 0.65% Na Soln 45 Ml ([place])) 1 - 2 sprays NA PRN PRN PRN Reason: Nasal Dryness/Congestion Stop: 05/20/21 18:17 Mental Health & Subst Abuse Tx Psychiatrist Name of Psychiatrist: Patrice- referral being made at therapy intake Psychiatrist's Date of Appointment with Psychiatrist: 05/02/21 Time of Appointment with Psychiatrist: 1pm Psychiatric Appointment Comment: [phone] Therapist Name of Therapist: Matteoar- intake Therapist's Date of Therapist Appointment: 05/02/21 Time of Therapist Appointment: 1pm Therapy Appointment Comment: [phone] Post Discharge Appointments Primary Care Physician Name Of Family Doctor: Moises Redd Primary Care Date of Appointment with PCP: 05/02/21 Time of Appointment with PCP: 11:00 AM Provider Appointment Comment: [address] [place] Contact Information Discharge Discharge Address: [address] [place] [address] (1) Depression Depression Type: unspecified Qualified Code(s): F32.9 - Major depressive disorder, single episode, unspecified
[2021-04-27] MEDS ORDERED: DESTROY THIS MEDICATION ONE (13:05)
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
== END 2021-04-27 13:45 | disposition home or self-care (01) | DRG 881 ==
LOC: ED 13:00 → 3S 18:35
DX: R45.851 Suicidal ideations; I49.8 Other specified cardiac arrhythmias; Z91.51 Personal history of suicidal behavior; F41.9 Anxiety disorder, unspecified; Z81.8 Family history of other mental and behavioral disorders; F32.9 Major depressive disorder, single episode, unspecified; Z79.899 Other long term (current) drug therapy; Q79.60 Ehlers-Danlos syndrome, unspecified; F42.9 Obsessive-compulsive disorder, unspecified

== ENCOUNTER 2024-10-20 18:00 | Inpatient (IN) ==
--- NOTE | 2024-10-20 18:25 | Emergency Department Note ---
Impression & Plan Depression Admission ED Provider Note HPI: History obtained from patient and her ex- at the bedside. The patient is a 24-year-old female who presents the emergency department with a chief complaint of increasing depression and vague suicidal ideations. Patient states that she has been having these thoughts more frequently over the past week or so. Patient states that today was her first day where she was off of work and she was having difficulty doing anything or leaving the house. Patient denies any suicidal plan. Patient states she is having thoughts "that I just cannot go on". Patient states that she did require inpatient admission about 5 years ago for psychiatric services. On arrival here to the ED the patient is otherwise alert and oriented x 3, she is cooperative, she is hemodynamically stable and saturating well on room air. ROS: - Per HPI Differential Diagnosis: Anxiety/depression, suicidal ideations, amongst other potential pathologies. *Outpatient medications and allergy history reviewed. PE: General: Alert HEENT: Normocephalic, trachea midline Eyes: Extraocular eye movement is intact, no scleral erythema Pulmonary: Clear to auscultation bilaterally, no wheezing Cardio: Regular rate and rhythm GI: Abdomen is soft to palpation : No suprapubic tenderness MSK: No evidence of trauma or malformation of the extremities, no edema Skin: No evidence of rash Neuro: Alert, no focal deficits Psychiatric: Flattened affect, overall cooperative EKG: (As interpreted by myself): Rate: 69 Rhythm: Sinus rhythm Intervals: Within normal limits ST changes: No ST elevation Time: 1849 Medical Decision Making: Medical clearance lab work was obtained, there is no leukocytosis, hemoglobin is normal, platelet count is normal, CMP does not show any evidence of any critical findings. Urinalysis does not show any evidence of any obvious infection, urine drug screen is negative, alcohol level is negative. COVID-19 screening is negative. Patient was medically cleared for case management assessment, patient was assessed and requested inpatient care. Patient was assessed by [facility] and accepted for inpatient voluntary admission. Patient was transferred to [facility] in stable condition for inpatient psychiatric care for vague suicidal thoughts and severe depression. Consultants/Discussions held with other healthcare providers: -Case management Disposition discussion held by myself with: -Patient and patient's ex- at the bedside Diagnosis: 1. Anxiety/depression, acute on chronic 2. Vague suicidal thoughts, acute Disposition: Admission to psychiatry Graham Zuluaga DO Emergency Medicine Past Med/Surg History Problem List (Updated 10/20/24 @ 23:50 by Graham Zuluaga DO) Depression (Acute) POTS (postural orthostatic tachycardia syndrome) (Acute) Medical History (Updated 10/20/24 @ 23:50 by Graham Zuluaga DO) Suicidal ideation Urinary tract bacterial infections Pneumonia 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 Surgical History No significant past surgical history Family History Other No pertinent family history Social History Smoking Status: Never smoker Hx Alcohol Use: No Hx Substance Use: No Preferred Language: Liberian Communication Ability: Effective Visual Impairment: No Limitations Hearing Ability: Normal 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 Beliefs That Will Affect Care: None current occupational status: employed Feels Safe at Home: Yes Gender Identity: Female Assistive Devices: None Allergies Allergies Allergy/AdvReac Type Severity Reaction Status Date / Time No Known Allergies Allergy Verified 02/07/24 16:04 Home Meds Home Medications Medication Instructions Recorded Confirmed metoprolol succinate 100 mg 50 mg PO BID 01/22/20 10/20/24 tablet,extended release 24 hr lamotrigine 100 mg tablet 50 mg PO BID 11/18/23 10/20/24 lorazepam 0.5 mg tablet 0.5 mg PO BID PRN Anxiety 11/18/23 10/20/24 gabapentin 300 mg capsule 300 mg PO BID 01/23/24 10/20/24 duloxetine 20 mg capsule,delayed 20 mg PO DAILY 10/20/24 10/20/24 release norethindrone (contraceptive) 0.35 0.35 mg PO DAILY 10/20/24 10/20/24 mg tablet omeprazole 40 mg capsule,delayed 40 mg PO 10/20/24 release Results & Data (ED) Vital Signs Vital Signs - 24 hr 10/20/24 18:03 10/20/24 22:09 Temperature 36.4 C L Temperature Source Temporal Artery Scan Pulse Rate 92 H Pulse Rate [Finger] 94 H Pulse Strength [Finger] Normal Respiratory Rate 18 16 Respiratory Effort / Characteristics Non-Labored Spontaneous Non-Labored Spontaneous Respiratory Depth Normal Normal Respiratory Pattern Regular Blood Pressure 130/86 Blood Pressure [Left Arm] 121/78 Blood Pressure Mean 100 Blood Pressure Mean [Left Arm] 92 Blood Pressure Position Sitting Blood Pressure Position [Left Arm] Sitting Pulse Oximetry 98 97 Oxygen Delivery Method Room Air Room Air Sepsis Recent Fever Within 48 Hours No Sepsis New/Unexplained Change in Mental Status No Sepsis Action Taken by Nursing No Action Required Laboratory Data 10/20/24 18:30 10/20/24 18:30 Lab Results 10/20/24 10/20/24 Range/Units 18:30 19:23 WBC 7.54 (4.8-10.8) K/ul RBC 4.28 (4.20-5.40) M/uL Hgb 14.4 (12.0-16.0) g/dl Hct 41.9 (37.0-47.0) % MCV 97.9 (80.0-100.0) fL MCH 33.6 (25.0-34.0) pg MCHC 34.4 (32.0-36.0) g/dL RDW Std Deviation 43.3 (36.4-46.3) fL RDW Coeff of [place] 12.0 (11.5-14.5) % Plt Count 218 (130-400) K/uL MPV 9.7 (9.4-12.4) fL Immature Gran % (Auto) 0.1 % Neut % (Auto) 62.1 % Lymph % (Auto) 32.6 % [place] % (Auto) 4.2 % Eos % (Auto) 0.7 % Baso % (Auto) 0.3 % Neut # (Auto) 4.68 (1.40-6.50) K/uL Lymph # (Auto) 2.46 (1.20-3.40) K/uL [place] # (Auto) 0.32 (0.11-0.59) K/uL Eos # (Auto) 0.05 (0.00-0.50) K/uL Baso # (Auto) 0.02 (0.00-0.20) K/uL Immature Gran # (Auto) 0.01 (0.01-0.20) K/uL Sodium 139 (136-145) mmol/L Potassium 3.5 (3.5-5.1) mmol/L Chloride 107 (98-107) mmol/L Carbon Dioxide 25 (21-32) mmol/L Anion Gap 7 (3-11) BUN 9 (6-23) mg/dl Creatinine 0.78 (0.6-1.2) mg/dl Est Cr Clr Drug Dosing 118.2 ml/min eGFR 107.36 BUN/Creatinine Ratio 11.5 (10-20) Glucose 95 (70-99(Fasting)) mg/dl Calcium 9.4 (8.6-10.3) mg/dl Total Bilirubin 0.5 (0.2-1.0) mg/dl AST 14 (13-39) U/L ALT 10 (7-52) U/L Alkaline Phosphatase 68 (34-104) U/L Total Protein 7.9 (6.0-8.3) gm/dl Albumin 5.0 (3.4-5.0) gm/dl Globulin 2.9 (2.5-4.0) gm/dl Albumin/Globulin Ratio 1.7 (0.9-2) TSH 2.076 (0.300-4.500) uIu/ml Urine Color Yellow Urine Appearance Clear (Clear) Urine pH 7.5 (4.5-7.5) Ur Specific [place] 1.021 (1.000-1.030) Urine Protein Negative (Negative) Urine Glucose (UA) Negative (Negative) Urine Ketones Trace H (Negative) Urine Blood Negative (Negative) Urine Nitrite Negative (Negative) Urine Bilirubin Negative (Negative) Urine Urobilinogen Negative (Negative) Ur Leukocyte Esterase 1+ H (Negative) Urine Test Negative (Negative) Salicylates < 3.0 L (3.0-30) mg/dl Urine Opiates Screen Neg (Neg) Ur Methadone, Qual Neg (Neg) Urine Fentanyl Screen Neg (Neg) Acetaminophen 15 (10-30) ug/ml Urine Barbiturates Neg (Neg) Ur Phencyclidine (PCP) Neg (Neg) U Amphetamin/Meth Scrn Neg (Neg) MDMA (Ecstasy) Screen Neg (Neg) U Benzodiazepines Scrn Neg (Neg) Ur Cocaine Metabolite Neg (Neg) U Marijuana (THC) Screen Neg (Neg) Ethyl Alcohol mg/dL < 10.0 (<10.0) mg/dl SARS-CoV-2, RNA, NAAT NEGATIVE (NEGATIVE) Administered Medications Gabapentin (Gabapentin 300 Mg Cap) 300 mg PO BID TREVER Stop: 11/19/24 23:14 Last Admin: 10/20/24 23:36 Dose: 300 mg Documented By: NINFA Hydroxyzine HCl (Hydroxyzine Hcl 25 Mg Tab) 50 mg PO HSZ PRN PRN Reason: Insomnia Stop: 11/19/24 22:19 Last Admin: 10/20/24 22:58 Dose: 50 mg Documented By: NINFA Lamotrigine (Lamotrigine 25 Mg Tab) 50 mg PO BID [facility]; Protocol Stop: 11/19/24 23:14 Last Admin: 10/20/24 23:36 Dose: 50 mg Documented By: NINFA Metoprolol Succinate (Metoprolol Succ 50mg Ext Rel Tab) 50 mg PO BID [facility] Stop: 11/19/24 23:14 Last Admin: 10/20/24 23:36 Dose: 50 mg Documented By: NINFA Discontinued Medications Ibuprofen (Ibuprofen 800 Mg Tab) 800 mg PO NOW STA Stop: 10/20/24 19:41 Last Admin: 10/20/24 19:43 Dose: 800 mg Documented By: HARINI Discharge Plan Visit Data Chief Complaint: Mental Health Evaluation Stated Complaint: MHE,SI ED Provider: Graham Zuluaga Discharge Problem: Depression Patient Disposition: Admitted As Inpatient Discharge Instructions Interventions: ED Discharge Assessment Last Done: 10/20/24 22:12
[2024-10-20 19:06] LABS: Basophils # (auto) 0.02 K/uL (0.00-0.20); Basophils % (auto) 0.3 %; Eosinophils # (auto) 0.05 K/uL (0.00-0.50); Eosinophils % (auto) 0.7 %; Hematocrit (blood only) 41.9 % (37.0-47.0); Hemoglobin 14.4 g/dl (12.0-16.0); Immature Granulocytes # (auto) 0.01 K/uL (0.01-0.20); Immature Granulocytes % (auto) 0.1 %; Lymphocytes # (auto) 2.46 K/uL (1.20-3.40); Lymphocytes % (auto) 32.6 %; Mean Corpuscular Hemoglobin 33.6 pg (25.0-34.0); Mean Corpuscular Hgb Conc 34.4 g/dL (32.0-36.0); Mean Corpuscular Volume 97.9 fL (80.0-100.0); Mean Platelet Volume 9.7 fL (9.4-12.4); Monocytes # (auto) 0.32 K/uL (0.11-0.59); Monocytes % (auto) 4.2 %; Neutrophils # (auto) 4.68 K/uL (1.40-6.50); Neutrophils % (auto) 62.1 %; Platelet Count 218 K/uL (130-400); RDW Standard Deviation 43.3 fL (36.4-46.3); Red Blood Count 4.28 M/uL (4.20-5.40); White Blood Count 7.54 K/ul (4.8-10.8)
[2024-10-20 19:24] LABS: Albumin Globulin Ratio 1.7 (0.9-2); BUN Creatinine Ratio 11.5 (10-20); Bilirubin,Total 0.5 mg/dl (0.2-1.0); Calcium 9.4 mg/dl (8.6-10.3); Creatinine Clr Calc Pharmacy 118.2 ml/min; Globulin 2.9 gm/dl (2.5-4.0); Potassium 3.5 mmol/L (3.5-5.1); Total Protein 7.9 gm/dl (6.0-8.3)
[2024-10-20 19:28] LABS: Pregnancy Test, Urine Negative (Negative)
[2024-10-20 19:38] LABS: Thyroid Stimulating Hormone 2.076 uIu/ml (0.300-4.500)
[2024-10-20 19:42] LABS: Acetaminophen 15 ug/ml (10-30); Bilirubin Urine Negative (Negative); Blood Urine Negative (Negative); Color Urine Yellow; Glucose Urine UA Negative (Negative); Ketones Urine Trace (Negative); Leukocyte Esterase Urine 1+ (Negative); Nitrite Urine Negative (Negative); Protein Urine Negative (Negative); Salicylate < 3.0 mg/dl (3.0-30); Specific Gravity Urine 1.021 (1.000-1.030); Urobilinogen Urine Negative (Negative); pH Urine 7.5 (4.5-7.5)
[2024-10-20 19:43] LABS: Appearance Urine Clear (Clear)
[2024-10-20] MEDS: IBUPROFEN 800 MG TAB PO STA (19:43)
[2024-10-20 19:56] LABS: Amphetamines+Metham, Urine Neg (Neg); Barbiturates, Urine Neg (Neg); Benzodiazepine, Urine Neg (Neg); Cocaine, Urine Neg (Neg); Fentanyl, Urine Neg (Neg); MDMA (Ecstacy), Urine Neg (Neg); Marijuana, Urine Neg (Neg); Methadone, Urine Neg (Neg); Opiate, Urine Neg (Neg); Phencyclidine, Urine Neg (Neg)
[2024-10-20] MEDS ORDERED: BISMUTH SUBSALICYLATE 262 MG CHEW PO PRN (22:20)
[2024-10-20] MEDS ORDERED: SODIUM CHLORIDE 0.65% NA SOLN 45 ML (OCEAN) PRN (22:20)
[2024-10-20] MEDS ORDERED: ALUMINUM/MAGNESIUM SUSP 30 ML UDC PO PRN (22:20)
[2024-10-20] MEDS: hydrOXYzine HCl 25 MG TAB PO PRN (22:58)
[2024-10-20] MEDS: lamoTRIgine 25 MG TAB PO SCH (23:36)
[2024-10-20] MEDS: GABAPENTIN 300 MG CAP PO SCH (23:36)
[2024-10-20] MEDS: METOPROLOL SUCC 50MG EXT REL TAB PO SCH (23:36)
[2024-10-21] MEDS: PANTOprazole 40 MG TAB PO SCH (08:45)
[2024-10-21] MEDS: DULoxetine HCL 20 MG CAP PO SCH (08:45)
--- OUTSIDE RECORDS SUMMARY | 2024-10-21 09:10 | External Medical Summary | Summary of Care ---
Author Name Unknown Organization [facility] [address] [place] [address] Phone [phone] Care Team Providers Care Food Sampler Name Role Phone Ivania CLEVELAND MD, Yuna Ya Primary Care Provider [phone] Reason for Visit * Reason Comments Short of Breath * Auth/Cert Specialty Diagnoses / Procedures Referred By Luis F t Referred To Contact [place] [address] [place] [address] Phone: [phone] [facility] Emergency Department ([facility]) [address] [place] [address] Phone: tel: fax: Referral ID Status Reason Start Date Expiration Date Visits Re quested Visits Authorized [id number] Encounter Details Date Type Department Care Team (Late st Contact Info) Description 09/03/2024 4:54 PM EST - 09/03/2024 8:16 PM EST Emergency [facility] Emergency Department ([facility]) [address] [place] [id number] Maria Guadalupe Pak DO [address], [place] [id number] Viral upper respiratory tract infection (Primary Dx) Discharge Disposition: Home - Self Care Allergies Active Allergy Reactions Criticality Noted Date Comments Food (See Comments) 04/30/2018 Kiwi tongue escalante documented as of this encounter (statuses as of 09/04/2024) Medications Trospium Chloride 20 MG Oral Tablet (Sanctura) Take 1 Tablet by mouth every evening. 30 Tablet 6 4 Active Additional Information Patient not taking.Reported on 08/23/2024 lamoTRIgine 100 MG Oral Tablet (LaMICtal) Take 0.5 Tablets by mouth in the morning and 0.5 Tablets before bedtime. 30 Tablet 2 4 Active Gabapentin 300 MG Oral Capsule (Neurontin) Take 1 Capsule by mouth in the morning and 1 Capsule before bedtime. 60 Capsule 2 4 Active DULoxetine HCl 20 MG Oral Capsule Delayed Release Particles (Cymbalta) Take 1 Capsule by mouth in the morning. 30 Capsule 2 4 Active LORazepam 0.5 MG Oral Tablet (Ativan) Take 1 Tablet by mouth 2 times a day as needed for Anxiety. 60 Tablet 2 4 Active Omeprazole 40 MG Oral Capsule Delayed Release (PriLOSEC) Take 1 Capsule by mouth in the morning. 30 Capsule 3 07/30/2024 12:37 PM EST 5 Active Metoprolol Succinate ER 100 MG Oral Tablet Extended Release 24 Hour (toPROL XL) Take 1/2 (one-half) tablet by mouth twice daily 90 Tablet 5 Active Sucralfate 1 GM/10ML Oral Suspension (Carafate)Indic ations:Epigastr ic pain Take 10 mL by mouth in the morning and 10 mL at noon and 10 mL in the evening and 10 mL before bedtime. 420 mL 5 Active Multivit/Multim ineral Adult Oral Liquid Take 1 Tablet by mouth every evening. 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 04/27/2024 Generalized abdominal pain 04/27/2024 Generalized anxiety disorder 02/02/2024 PTSD (post-traumatic stress disorder) 02/02/2024 Severe episode of recurrent major depressive disorder, without psychotic features 08/13/2021 POTS (postural orthostatic tachycardia syndrome) 08/18/2019 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 documented as of this encounter (statuses as of 09/04/2024) Resolved Problems Problem Noted Date Diagnosed Date Resolved Date 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 02/20/2021 documented as of this encounter (statuses as of 09/04/2024) Immunizations Name Administration Dates Next Due COVID-19 mRNA, LNP-s, No Pre serve, 2-Dose Series (Moderna) 12/11/2020,11/13/2020 PPD 08/27/2023,08/18/2023,07/08/2023 Seasonal Influenza, PF, 6 M & above, IM , (FluLaval or Fluzone) 09/19/2023,06/01/2019,08/26/2018 TDAP (age 10 and older)(Boostrix) 07/08/2023 documented as of this encounter Social History Tobacco Use Types Packs/Day Years Used Date Smoking Tobacco: Never Smokeless Tobacco: Never Alcohol Use Standard Drinks/Week Comments Yes 2 (1 standard drink = 0.6 oz pur e alcohol) maybe once a week PHQ-2 Answer Date Recorded PHQ Adult Total Score 3 07/29/2023 Hunger Vital Sign Answer Date Recorded Within the past 12 months, y ou worried that your food would run out before you got the money to buy more. Never true 05/25/20 24 Within the past 12 months, t he food you bought just didn't last and you didn't have money to get more. Never true 05/25/2024 Childcare Answer Date Recorded Do you feel overwhelmed with taking care of a child, family member or friend? No 05/25/2024 Does your family need help f inding childcare? (Household - for ages 0-17 years) Not on file 05/25/2024 Clothing Answer Date Recorded Have you been unable to get clothing when it was really needed? No 05/25/2024 Is your family able to get c lothes or diapers when needed? (Household - for ages 0-17 years) Not on file 05/25/2024 Personal Safety Answer Date Recorded Do you feel unsafe or have concerns for your saf ety? No 05/25/2024 Do you have concerns for you r family's safety? (Household - for ages 0-17 years) Not on file 05/25/2024 Utilities Answer Date Recorded Do you have trouble paying y our heating, water, or electric bill? No 05/25/2024 Is your family able to pay t he heat, water, or electric bill? (Household - for ages 0-17 years) Not on file 05/25/2024 Does your family have access to good internet? (Household - for ages 0-17 years) Not on file 05/25/2024 Employment Status Answer Date Recorded Are you unemployed or without regular income? Ye s 05/25/2024 Does the household have a re gular source of income? (Household - for ages 0-17 years) Not on file 05/25/2024 Social Connections Answer Date Recorded How often do you feel lonely or isolated from th ose around you? Always 05/25/2024 Financial Resource Strain Answer Date R ecorded Do you have any trouble payi ng for your medications, or do you think you might in the future? No 05/25/2024 Does your family have troubl e paying for medicine? (Household - for ages 0-17 years) Not on file 05/25/2024 Transportation Needs Answer Date Record ed Do you have trouble getting a ride to medical visits or work? (Adult - for ages 18 years and over) Not on file 05/25/2024 Does your family have a hard time getting a ride to doctors visits? (Household - for ages 0-17 years) Not on file 05/25/2024 Has lack of transportation k ept you from medical appointments, meetings, work, or from getting things needed for daily living? Check all that apply. No 05/25/2024 Do you (or your family) have trouble finding or paying for a ride (transportation)? (Household - for ages 0-17 years) Not on file 05/25/2024 Housing Stability Answer Date Recorded Do you currently live in a s helter or have no steady place to sleep at night? No 05/25/2024 Do you think you are at risk of becoming homeless? (Adult - for ages 18 years and over) Not on file 05/25/2024 Does your family worry about paying for your home or becoming homeless? (Household - for ages 0-17 years) Not on file 1 Are you homeless or worried that you might be in the future? No 05/25/2024 Are you (or your family) tanner eless or worried that you might be in the future? (Household - for ages 0-17 years) Not on file Food Insecurity Answer Date Recorded Do you need food for this week? No 05/25/2024 Are you able to get enough f ood for your family? (Household - for ages 0-17 years) Not on file 05/25/2024 Does your family need food t his week? (Household - for ages 0-17 years) Not on file 05/25/2024 Do you always have enough fo od for your family? (Household - for ages 0-17 years) Not on file 05/25/2024 Food Insecurity Answer Date Recorded Within the past 12 months, y ou worried that your food would run out before you got the money to buy more. Never true 05/25/20 24 Within the past 12 months, t he food you bought just didn't last and you didn't have money to get more. Never true 05/25/2024 Do you need food for this week? No 05/25/2024 Education Answer Date Recorded What is the highest level of school you have completed or the highest degree you have received? 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 Not on file Not on file Not on file documented as of this encounter Last Filed Vital Signs Vital Sign Reading Time Taken Comments Blood Pressure 118/69 09/03/2024 8:16 PM EST Pulse 94 09/03/2024 8:16 PM EST Temperature 37.6 C (99.7 F) 09/03/2024 8:15 PM ES T Respiratory Rate 21 09/03/2024 8:16 PM EST Oxygen Saturation 97% 09/03/2024 8:16 PM EST Inhaled Oxygen Concentration - - Weight - - Height - - Body Mass Index - - documented in this encounter Discharge Instructions * Discharge Instructions* Tessa Ulloa PA-C - 09/03/2024 8:09 PM EST As discussed, continue tylenol as needed for symptomatic relief. Continue adequate oral hydration and sufficient caloric intake. Should your symptoms worsen or fail to improve please seek medical attention. Please reach out with any further questions or concerns. documented in this encounter ED Notes * Demi Suarez RN - 09/03/2024 4:56 PM EST Pt started with a sore throat yesterday. She tested positive for covid. She is c/o generalized weakness and shortness of breath. She has been taking tylenol and motrin documented in this encounter Miscellaneous Notes * Pt Handout (on AVS) - Tessa Ulloa PA-C - 09/03/2024 8:07 PM EST [id number] Viral Upper Respiratory Illness (Adult) You have a viral upper respiratory illness (URI), which is another term for the common cold. This viral illness is contagious during the first few days. It spreads through the air by the sick person coughing and sneezing. It may also spread by direct contact (touching the sick person and then touching your own eyes, nose, or mouth). Frequent handwashing will lower the risk of spread. Most viral illnesses end within 7 to 10 days with rest and simple home remedies. Sometimes, the illness may lastfor several weeks. Antibiotics will not kill a virus, and they are generally not prescribed for this condition. Home care If symptoms are severe, rest at home for the first 2 to 3 days or as advised. When you resume activity, don't let yourself get too tired. Don't smoke. If you do smoke and need help quitting, talk with your health care provider. Avoid secondhand smoke. You may use acetaminophen or ibuprofen to control pain and fever unless another medicine was prescribed. If you have chronic liver or kidney disease, talk with your provider before taking these medicines. Also, talk with your provider if you've had a stomach ulcer or digestive bleeding, or if you take blood-thinning medicines. Never give aspirin to anyone under 18 years of age who is ill with a viral infection or fever. It may cause severe liver or brain damage, or even . Your appetite may be poor, so a light diet is okay. Stay well hydrated by drinking 6 to 8 glasses of fluids per day (water, soft drinks, juices, tea, or soup). Extra fluids will help loosen secretions in the nose and lungs. Zand-ycj-mbxglpp cold medicines will not help you to recover quickly. But they may be helpful for cough, sore throat, and nasal and sinus congestion. If you take prescription medicines, ask your provider or pharmacist which grrk-hmn-wbhetyw medicines are safe to use. If you have high blood pressure, don't use decongestants without first talking with your provider. Follow-up care Follow up with your health care provider, or as advised. When to seek medical advice Contact your health care provider right away if any of these occur: Cough with lots of colored sputum (mucus) Severe headache; face, neck, or ear pain Difficulty swallowing due to throat pain Fever of 100.4F (38C) or higher , or as directed by your provider Call 911 Call 911 if any of these occur: Chest pain, shortness of breath, wheezing, or difficulty breathing Coughing up blood Very severe pain with swallowing, especially if it goes along with a muffled voice Feeling of doom Feeling dizzy, faint, or confused Lips or skin is blue, purple, or gunn in color Prolonged fever of 102F (38.8C) or higher Symptoms that get worse or last longer than 10 days Last Reviewed Date: 2024 00:00:00 [id number] The [employer]. All rights reserved. This information is not intended as a substitute for professional medical care. Always follow your healthcare professional's instructions. documented in this encounter Plan of Treatment Upcoming Encounters Date Type Department Care Team (Late st Contact Info) Description 09/16/2024 1:30 PM EST Telemedicine Psychiatry [facility] [address] [place] [address] Ilya Stovall MD [address] [place] [address] 10/01/2024 1:00 PM EST Nurse Only Gynecology/Obstetrics [facility] [address] [place] [address] Gw, Nurse Obgyn Injection [address] [place] [address] 10/21/2024 8:00 AM EDT Office Visit [address] [phone] Angi Resendiz MD [address] [place] [address] 12/10/2024 3:00 PM EDT Office Visit Cardiology, [facility] [address] [place] [address] Ema Vargas PA-C [address] [facility] [place], [place] [phone] 04/22/2025 8:00 AM EDT Office Visit Gynecology/Obstetrics [facility] [address] [facility] [place] [address] Demi Jolly PA-C [address] [facility] [place] [phone] Scheduled Procedures Name Priority Associated Diagnoses Date/Ti me COLONOSCOPY FLEXIBLE PROXIMA L DIAGNOSTIC Recall History of colonic polyps Health Maintenance Due Date Last Done Comments HIV Screening 2013 Hepatitis C Screening 01/23/2016 Hepatitis B Vaccine (1 of 3 - 19+ 3-dose series) 2017 COVID-19 Vaccine ( season) 2024 12/11/2020, 11/13/2020 Influenza Vaccine (FLU shot) (#1) 2024 09/19/2023, 06/01/2019, 08/26/2018 Depression Monitoring 07/29/2024 07/29/2023 Pap Smear 04/14/2027 04/14/2024, 06/01/2019 DTap/Tdap Vaccines (2 - Td or Tdap) 07/08/2033 07/08/2023 Colonoscopy 2043 07/30/2024, 07/30/2024 Gonorrhea / Chlamydia Screen Discontinued 08/26/2023, 03/14/2021, 02/20/2021, Additional history exists MENINGOCOCCAL (MENACTRA/MENVEO) Aged Out No longer eligible based on patient's age to complete this topic Pneumococcal Vaccine: Pediatrics (0 to 5 Years) and At-Risk Patients (6 to 18 Years and 19+ Years) Aged Out No longer eligib le based on patient's age to complete this topic documented as of this encounter Medical Devices Not on filedocumented as of this encounter Visit Diagnoses Diagnosis Viral upper respiratory tract infection- Primary Acute upper respiratory infections of unspecified site documented in this encounter Administered Medications Inactive Administered Medications - up to 3 most recent administrations Medication Order MAR Action Action Date Dose Rate Site Acetaminophen (Tylenol) tab 650 mg 650 mg, Oral, ONCE, On Fri09/03/24 at 1830, For 1 dose, Maximum of 4 grams (4000 mg) per day. Given 09/03/2024 6:09 PM EST 650 mg keTORolac (Toradol) 15 MG/ML inj 15 mg 15 mg, IV Push, ONCE, On Fri09/03/24 at 2000, For 1 dose Given 09/03/2024 7:33 PM EST 15 mg NSS 0.9% 1,000 mL bolus infusion Intravenous, at 1,000 mL/hr Administer over 60 Minutes, Administer entire volume within 60 minutes or less., ONCE, 1 dose, On Fri09/03/24 at 1830 New Bag 09/03/2024 6:13 PM EST 1,000 mL 1000 mL/hr documented in this encounter Active and Recently Administered Medications Times are shown in EST. Scheduled Medication Order 09/01/2024 09/02/2024 09/03/2024 Acetaminophen (Tylenol) tab 650 mg (COMPLETED) 650 mg, Oral, ONCE, On Fri09/03/24 at 1830, For 1 dose, Maximum of 4 grams (4000 mg) per day. 180 (Given - Provid er: Rocio Moura LPN) keTORolac (Toradol) 15 MG/ML inj 15 mg (COMPLETED) 15 mg, IV Push, ONCE, On Fri09/03/24 at 2000, For 1 dose 1932 (Given - Provid er: Sulma Ji RN) NSS 0.9% 1,000 mL bolus infusion (COMPLETED) Intravenous, at 1,000 mL/hr Administer over 60 Minutes, Administer entire volume within 60 minutes or less., ONCE, 1 dose, On Fri09/03/24 at 1830 1812 (New Bag - Prov ider: Rocio Moura LPN)1932 (Stopped - Provider: Sulma Ji RN) documented in this encounter Care Teams Food Sampler Relationship Specialty Start Date End Date Yuan Redd III, MD [address] [facility] [place] [address] PCP - General Family Medicine 07/15/23 documented as of this encounter
--- OUTSIDE RECORDS SUMMARY | 2024-10-21 09:10 | External Medical Summary | Summary of Care ---
Author Name Unknown Organization [facility] Address [address] [place] [address] Phone [phone] Care Team Providers Care Boatswain Mate Name Role Phone Ivania CLEVELAND MD, John E Primary Care Provider [phone] Reason for Visit * Reason Onset Date Comments Medication Refill 08/25/2024 Medication Pre-auth 08/16/2024 Encounter Details Date Type Department Care Team (Late st Contact Info) Description 08/16/2024 Telephone Family Practice [facility] [address] [facility] [place] [address] Óscar [place] III, MD [address] [facility] [place] [address] Medication Refill; Medication Pre-auth Allergies Active Allergy Reactions Criticality Noted Date Comments Food (See Comments) 04/30/2018 Kiwi tongue escalante documented as of this encounter (statuses as of 09/02/2024) Medications Trospium Chloride 20 MG Oral Tablet [...] mouth twice daily 90 Tablet 5 Active Probiotic Daily Oral Capsule Take 1 Cap by mouth daily. 08/23/19 25 Discontin ued(Medic ation List Clean Up) One-A-Day Womens 50+ Advantage Oral Tablet Take 1 Tablet by mouth in the morning. 08/23/19 25 Discontin ued(Medic ation List Clean Up) Ondansetron HCl 4 MG Oral Tablet Take 1 Tablet by mouth every 8 hours as needed for Nausea. 08/23/19 25 Discontin ued(Medic ation List Clean Up) Sucralfate 1 GM Oral Tablet (Carafate) Take 1 Tablet by mouth in the morning and 1 Tablet at noon and 1 Tablet in the evening and 1 Tablet before bedtime. half an hour before meals and at bedtime. 120 Tablet 4 08/16/19 25 Discontin ued(Refil l) Sucralfate 1 GM Oral Tablet (Carafate) Take 1 Tablet by mouth in the morning and 1 Tablet at noon and 1 Tablet in the evening and 1 Tablet before bedtime. half an hour before meals and at bedtime. 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 04/27/2024 Generalized abdominal pain 04/27/2024 Generalized anxiety disorder 02/02/2024 PTSD (post-traumatic stress disorder) 02/02/2024 Severe episode of recurrent major depressive disorder, without psychotic features 08/13/2021 POTS (postural orthostatic tachycardia syndrome) 08/18/2019 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 documented as of this encounter (statuses as of 09/02/2024) Resolved Problems Problem Noted Date Diagnosed Date Resolved Date 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 02/20/2021 documented as of this encounter (statuses as of 09/02/2024) Immunizations Name Administration Dates Next Due COVID-19 [...] 8:24 AM EDT Sexual Orientation Bisexual 12/08/2018 8: 24 AM EDT 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 * Telephone Encounter - Dandy Torres [facility] - 09/02/2024 9:41 AM EST No action needed. Denial already sent to provider. Thank You, Dandy Torres, Pharm-D Clinical Pharmacist [facility] ([facility]) [phone] 09/02/2024, 9:42 AM * Telephone Encounter - Judah Zurita CPhT - 09/02/2024 8:25 AM EST Checked status of prior authorization for Sucralfate 1GM/10ML through [facility]. Routed high priority to refill call center pharmacist pool due to denial. Denial reason: The requested medication is not FDA-approved for the diagnosis provided. Depending on the diagnosis submitted, there may be additional criteria which must be met for the requested medication to be considered for approval. Per note below denial notice already in provider inbox Thank you, Lalit Zurita (corporate investigator) Chain Repairer III [facility] ([facility]) 09/02/2024, 8:25 AM * Telephone Encounter - Paula Lujan OSA - 09/01/2024 10:34 AM EST 09/01/24 Rec a DENIAL from Clinical Services Team Pharmacy Services Department for Sucralfate 1GM/10ML or SUSP. Placed DENIAL in Dr. Resendiz's "In Box" today. * Telephone Encounter - Yumiko Durbin PHARM Tech - 08/31/2024 1:12 PM EST Submitted information in previous note via CMM (Wray: [id number]).. Awaiting payer response. We will follow-up with insurance starting 09/02. Per [facility] request, if no decision is received from insurance by 09/03, we will route back to the [facility] after clarifying with the pharmacy that the claim is still not processing. Thank you, Yumiko Durbin CPhT Chain Repairer II [facility] ([facility]) 08/31/2024,1:12 PM * [facility] - [facility] 11:49 AM EST Please resubmit with DX of GERD ICD10 code K21.9, please also include OV note 02/02/24 providing documentation of dx. If denied we can attempt to see if tablets Thank you, Karina De Santiago PharmD Clinical Pharmacist [facility] ([facility]) 08/30/24 11:49 AM [phone] * Telephone Encounter - Judah Zurita CPhT - 08/30/2024 8:53 AM EST Checked status of prior authorization for Sucralfate 1GM/10ML through CMM. Routed high priority to refill call center pharmacist pool due to denial. Denial reason: The requested medication is not FDA-approved for the diagnosis provided. Thank you, Lalit Zurita ([facility]) Chain Repairer III [facility] ([facility]) 08/30/2024, 8:53 AM * Telephone Encounter - Judah Zurita CPhT - 08/27/2024 9:09 AM EST Checked status of prior authorization for Sucralfate 1GM/10ML suspension through CMM. Awaiting response from insurance. In Store Demonstrator will review again. Reminder: Pharmacist requests prior auth be sent back if no response by 08/30. Thank you, Lalit Zurita ([facility]) Chain Repairer III [facility]) 08/27/2024, 9:09 AM * Telephone Encounter - Aletha Bernabe OSA - 08/26/2024 6:00 PM EST Submitted information in previous note via CMM (Wray: )..[id number] Awaiting payer response. We will follow-up with insurance starting 08/27. Per [facility] request, if no decision is received from insurance by 08/30, we will route back to the [facility] after clarifying with the pharmacy that the claim is still not processing. SHAHLA rOtiz MEDICATION PLUNGER MACHINE OPERATOR, [facility] [email or web address] [phone] - phone [phone] - fax 08/26/2024,6:00 PM * Telephone Encounter - Brendon Escoto [facility] - 08/26/2024 10:08 AM EST Please submit PA. Include the following documentation: 08/23/24 ov Please copy and paste the following information into PA form: Failed use of tablets What other drugs is there medical record documentation of therapeutic failure on, intolerance to, or contraindication to for this condition? Sucralfate in tablet form Graham as urgent: No Diagnosis/ICD-10 Code(s): r10.13 If instantaneous decision is not received after submitting prior auth, please continue to follow upon this and route back to the [facility] pool if no decision is made by the insurance by 08/30, after clarifying with the pharmacy that the claim is still not processing. If PA is denied, please also route back to [facility]. Thanks, Brendon Escoto PharmD Clinical Pharmacist [facility] ([facility]) [phone] 08/26/2024, 10:08 AM * Telephone Encounter - Haleigh Delatorre [facility] - 08/25/2024 2:21 PM EST Unable to reach patient. LMOVM. Please transfer her back to myself. If I'm not available, transfer to next available [facility]. In OV note, refill only (changed to suspension, patient did not tolerate pills) Please assess how the patient did not tolerate the pills? Will need provider to document that in OVbefore we can submit for PA Thank you, Haleigh Delatorre [facility] Clinical Pharmacist [facility] ([facility]) 08/25/24 2:21 PM [phone] * Telephone Encounter - Eugenia Uribe hand cloth folder - 08/25/2024 2:07 PM EST This is a new PA request. Upon review of this prior authorization request, I verified this request is appropriate. This is prescribed by a department for which [facility] is authorized to review prior authorizations This is not a duplicate encounter regarding the same prior authorization The patient is planning to use insurance The insurance information listed in previous note is correct and the plan that is requiring prior authorization The insurance does not cover either brand or generic forms of this script as written without prior authorization The insurance does not cover any NDCs of this script without prior authorization RX Estimate tool confirms this script needs prior authorization Of note, there is nothing currently pending in [facility] for this request. Please advise how to proceed. Thanks, Eugenia Uribe Chain Repairer III [facility] ([facility]) 08/25/2024,2:07 PM * Telephone Encounter - Olga Sloan PHARM Tech - 08/25/2024 12:31 PM EST Pharmacy calling to inform doctor that the patient's insurance will not pay for this medication without a completed prior authorization. Did confirm this information with the pharmacy. Pt's current insurance information is as follows: Patient name: Tiffany Jaimes ID number: [id number] BIN number: [id number] PCN number: Group number: [id number] Subscriber name: Tiffany Jaimes Primary or Secondary Insurance:Primary Medication: Sucralfate 1 GM/10ML Oral Suspension (Carafate) Reason for Request: Needs a [place] Pharmacy and phone number: [facility] [id number] [place] Rx plan and phone number: [employer] [phone] Is this a new medication for the patient? Yes What alternative medications does the pharmacy have in stock?: Thank you, Olga Sloan Superintendent [employer] 08/25/2024, 12:31 PM * Telephone Encounter - Óscar [place] III, MD - 08/17/2024 7:51 AM ESTSigned Prescriptions: Disp Refills Sucralfate 1 GM Oral Tablet (Carafate) 120 Ta*0 Sig: Take 1 Tablet by mouth in the morning and 1 Tablet at noon and 1 Tablet in the evening and 1 Tablet before bedtime. half an hour before meals and at bedtime.Authorizing Provider: ÓSCAR [place] III * Telephone Encounter - Michelle Michelle CRNP - 08/17/2024 6:58 AM EST Pending Prescriptions: Disp Refills Sucralfate 1 GM Oral Tablet (Carafate) 120 Ta*0 Sig: Take 1 Tablet by mouth in the morning and 1 Tablet at noon and 1 Tablet in the evening and 1 Tablet before bedtime. half an hour before meals and at bedtime. documented in this encounter Plan of Treatment Upcoming Encounters Date Type Department Care Team (Late st Contact Info) Description 09/16/2024 1:30 PM EST Telemedicine Psychiatry [facility] [place] [address] [place] [address] Ilya Stovall MD [address] [place] [phone] 10/01/2024 1:00 PM EST Nurse Only Gynecology/Obstetrics [facility] [address] [facility] [place] [address] Gw, Nurse Obgyn Injection [address] [facility] [place] [address] 10/21/2024 8:00 AM EDT Office Visit [address] [phone] Angi Resendiz MD [facility] [place] [address] 12/10/2024 3:00 PM EDT Office Visit Cardiology, [facility] [address] [facility] [place] [address] Ema Vargas PA-C [address] [place] [address] [place] [address] 04/22/2025 8:00 AM EDT Office Visit Gynecology/Obstetrics Tracy Hernandez [address] [place] [address] Demi Jolly PA-C [address] [place] [address] Scheduled Procedures Name Priority Associated Diagnoses Date/Ti me COLONOSCOPY FLEXIBLE PROXIMA L DIAGNOSTIC Recall History of colonic polyps Health Maintenance Due Date Last Done Comments HIV Screening 2013 Hepatitis C Screening 01/23/2016 Hepatitis B Vaccine (1 of - + 3-dose series) 2017 COVID-19 Vaccine (2023- season) 2024 12/11/2020, 11/13/2020 Influenza Vaccine (FLU [...] Not on filedocumented as of this encounter Care Teams Boatswain Mate Relationship Specialty Start Date End Date Óscar [place] III, MD [address] [place] [address] PCP - General Family Medicine 07/15/23 documented as of this encounter
--- OUTSIDE RECORDS SUMMARY | 2024-10-21 09:10 | External Medical Summary | Summary of Care ---
Author Name Unknown Organization [facility] Address [address] [place] [address] Phone [phone] Care Team Providers Care Laboratory Sampler Name Role Phone Ivania CLEVELAND MD, Yuan Ya Primary Care Provider [phone] Encounter Details Date Type Department Care Team (Late st Contact Info) Description 09/20/2024 Orders Only Outcomes Research Department [address] [place] [address] Meri Hayes CHRA [employer] Research Other*[id number] Allergies Active Allergy Reactions Criticality Noted Date Comments Food (See Comments) 04/30/2018 Kiwi tongue escalante documented as of this encounter (statuses as of 09/20/2024) Medications Trospium Chloride 20 MG Oral Tablet (Sanctura) Take 1 Tablet by mouth every evening. 30 Tablet 6 4 Active Additional Information Patient not taking.Reported on 08/23/2024 Omeprazole 40 MG Oral Capsule Delayed Release (PriLOSEC) Take 1 Capsule by mouth in the morning. 30 Capsule 3 07/30/2024 12:37 PM EST 5 Active Metoprolol Succinate ER 100 MG Oral Tablet Extended Release 24 Hour (toPROL XL) Take 1/2 (one-half) tablet by mouth twice daily 90 Tablet 5 Active Multivit/Multim ineral Adult Oral Liquid Take 1 Tablet by mouth every evening. Active Mirtazapine 15 MG Oral Tablet (Remeron) Take 1 Tablet by mouth at bedtime. 30 Tablet 2 5 Active lamoTRIgine 100 MG Oral Tablet (LaMICtal) Take 0.5 Tablets by mouth in the morning and 0.5 Tablets before bedtime. 30 Tablet 2 5 Active LORazepam 0.5 MG Oral Tablet (Ativan) Take 1 Tablet by mouth 2 times a day as needed for Anxiety. 60 Tablet 2 5 Active Gabapentin 300 MG Oral Capsule (Neurontin) Take 1 Capsule by mouth in the morning and 1 Capsule before bedtime. 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 04/27/2024 Generalized abdominal pain 04/27/2024 Generalized anxiety disorder 02/02/2024 PTSD (post-traumatic stress disorder) 02/02/2024 Severe episode of recurrent major depressive disorder, without psychotic features 08/13/2021 POTS (postural orthostatic tachycardia syndrome) 08/18/2019 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 documented as of this encounter (statuses as of 09/20/2024) Resolved Problems Problem Noted Date Diagnosed Date Resolved Date 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 02/20/2021 documented as of this encounter (statuses as of 09/20/2024) Immunizations Name Administration Dates Next Due COVID-19 [...] Industry 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 Job End Date 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 Not on file Not on file documented as of this encounter Plan of Treatment Upcoming Encounters Date Type Department Care Team ([facility] Contact Info) Description 10/01/2024 1:00 PM EST Nurse Only Gynecology/Obstetrics [facility] [address] [facility] [place] [address] Gw, Nurse Obgyn Injection [address] [facility] [place] [address] 10/21/2024 8:00 AM EDT Office Visit [address] [phone] Angi Resendiz MD [facility] [place] [address] 10/21/2024 1:30 PM EDT Telemedicine Psychiatry [facility] [place] [address] [place] [address] Ilya Stovall MD [address] [place] [address] 12/10/2024 3:00 PM EDT Office Visit Cardiology, [facility] [address] [facility] [place] [address] Ema Vargas PA-C [address] [place] [address] [place] [phone] 04/22/2025 8:00 AM EDT Office Visit Gynecology/Obstetrics Tracy Hernandez [address] [place] [address] Demi Jolly PA-C [address] [place] [address] Scheduled Orders Name Type Priority Associated Diagnoses Orde r Schedule MYCODE SUBSEQUENT ADULT Lab Routine [employer] Other*[id number] Every 6 Months for 2 Occurrences starting 09/20/2024 until 10/10/2025 Scheduled Procedures Name Priority Associated Diagnoses Date/Ti [...] on patient's age to complete this topic Meningitis B Vaccine (Bexsero/Trumemba) Aged Out No longer eligible based on patient's age to complete this topic Pneumococcal Vaccine: Pediatrics (0 to 5 Years) and At-Risk Patients (6 to 18 Years and 19+ Years) Aged Out No longer eligib le based on patient's age to complete this topic documented as of this encounter Medical Devices Not on filedocumented as of this encounter Visit Diagnoses Diagnosis [employer] Other*[id number] documented in this encounter Care Teams Laboratory Sampler Relationship Specialty Start Date End Date Yuan Redd III, MD [address] [place] [address] PCP - General Family Medicine 07/15/23 documented as of this encounter
--- OUTSIDE RECORDS SUMMARY | 2024-10-21 09:10 | External Medical Summary | Summary of Care ---
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 Encounter Details Date Type Department Care Team (Latest Contact Info) Description 09/29/2024 11:00 AM EST Office Visit Gynecology/Obstetric s Tracy Hernandez [address] [facility] [place] [address] Palmira Tomlin CRNP [address] [place] [address] Oral contraceptive pill surveillance* Allergies Active Allergy Reactions Criticality Noted Date Comments Food (See Comments) 04/30/2018 Kiwi tongue escalante documented as of this encounter (statuses as of 09/29/2024) Medications Trospium Chloride 20 MG Oral Tablet (Sanctura) Take 1 Tablet by mouth every evening. 30 Tablet 6 4 Active Additional Information Patient not taking.Reported on 09/29/2024 Omeprazole 40 MG Oral Capsule Delayed Release (PriLOSEC) Take 1 Capsule by mouth in the morning. 30 Capsule 3 07/30/2024 12:37 PM EST 5 Active Metoprolol Succinate ER 100 MG Oral Tablet Extended Release 24 Hour (toPROL XL) Take 1/2 (one-half) tablet by mouth twice daily 90 Tablet 5 Active Multivit/Multimin eral Adult Oral Liquid Take 1 Tablet by mouth every evening. Active lamoTRIgine 100 MG Oral Tablet (LaMICtal) [...] before bedtime. 60 Capsule 2 5 Active DULoxetine HCl 20 MG Oral Capsule Delayed Release Particles (Cymbalta) Take 1 Capsule by mouth daily. 30 Capsule 2 5 Active Norethindrone 0.35 MG Oral TabletIndications :Oral contraceptive pill surveillance Take 1 Tablet by mouth daily. 84 Tablet 3 5 Active Hospital, Clinic, or Other Facility Administered Medication Ordered Dose Route Frequency Start Date End Date Status medroxyPROGESTERone (contracep) (Depo-Provera) inj 150 mgIndications:Surveil selvin for Depo-Provera contraception 150 mg IM [id number] 04/14/2024 09/29/2024 Discontinue d documented as of this encounter (statuses as of 09/29/2024) Active Problems Problem Noted Date Diagnosed Date Epigastric pain 04/27/2024 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 04/27/2024 Generalized abdominal pain 04/27/2024 Generalized anxiety disorder 02/02/2024 PTSD (post-traumatic stress disorder) 02/02/2024 Severe episode of recurrent major depressive disorder, without psychotic features 08/13/2021 POTS (postural orthostatic tachycardia syndrome) 08/18/2019 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 documented as of this encounter (statuses as of 09/29/2024) Resolved Problems Problem Noted Date Diagnosed Date Resolved Date 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 02/20/2021 documented as of this encounter (statuses as of 09/29/2024) Immunizations Name Administration Dates Next Due COVID-19 [...] Industry 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 Job End Date 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 Currently on Depo Provera but would like to switch to OCP. History of Chuck-Danlos, PTSD, tachycardia, depression, POTS. Per cardiology note from 2022, taking metoprolol for tachycardia as well as labile BP. Pt states BP is not an issue any longer. PMH: Patient Active Problem List Diagnosis Chuck-Danlos syndrome POTS (postural orthostatic tachycardia syndrome) Severe episode of recurrent major depressive disorder, without psychotic features (HCC) Generalized anxiety disorder PTSD (post-traumatic stress disorder) Epigastric pain Current severe episode of major depressive disorder with psychotic features (HCC) Generalized abdominal pain Current Outpatient Medications Medication Sig Dispense Refill Omeprazole 40 MG Oral Capsule Delayed Release (PriLOSEC) Take 1 Capsule by mouth in the morning. 30Capsule 3 Metoprolol Succinate ER 100 MG Oral Tablet Extended Release 24 Hour (toPROL XL) Take 1/2 (one-half)tablet by mouth twice daily 90 Tablet 0 Multivit/Multimineral Adult Oral Liquid Take 1 Tablet by mouth every evening. lamoTRIgine 100 MG Oral Tablet (LaMICtal) Take 0.5 Tablets by mouth in the morning and 0.5 Tablets before bedtime. 30 Tablet 2 LORazepam 0.5 MG Oral Tablet (Ativan) Take 1 Tablet by mouth 2 times a day as needed for Anxiety. 60 Tablet 2 Gabapentin 300 MG Oral Capsule (Neurontin) Take 1 Capsule by mouth in the morning and 1 Capsule before bedtime. 60 Capsule 2 DULoxetine HCl 20 MG Oral Capsule Delayed Release Particles (Cymbalta) Take 1 Capsule by mouth daily. 30 Capsule 2 Norethindrone 0.35 MG Oral Tablet Take 1 Tablet by mouth daily. 84 Tablet 3 Trospium Chloride 20 MG Oral Tablet (Sanctura) Take 1 Tablet by mouth every evening. (Patient not taking: Reported on 09/29/2024) 30 Tablet 6 No current facility-administered medications for this visit. Review of patient's allergies indicates: Allergen Reactions Food (See Comments) Kiwi tongue escalante Objective: BP 122/70 | Ht 1.753 m (5' 9") | Wt 81.2 kg (179 lb) | LMP (LMP Unknown) | BMI 26.43 kg/m | BSA 1.99 m General: alert, healthy, and no distress Head: Normocephalic Neuro Exam: alert & oriented x 3 with fluent speech, no focal motor/sensory deficits, gait normal ASSESSMENT: Oral contraceptive pill surveillance (Primary) - Norethindrone 0.35 MG Oral Tablet; Take 1 Tablet by mouth daily. Reviewed Friday start method. Encouraged to take at the same time each day. Discussed what to do inthe event of a missed pill. Encouraged back up method of control during first pill pack, if not taking pills as directed, and if on antibiotics. Encouraged continued condom use to prevent STDs and further prevent . Discussed increased risk of thromboembolic events, advised to call office or go to nearest ED with s/s. Encouraged not to smoke when on OCPs. Follow Up: Return in about 1 year (around 09/29/2025) for annual. | For: annual CHASIDY Young documented in this encounter Nursing Notes * Marleny Youssef RN - 09/29/2024 11:07 AM EST Patient here for control discussion Interested in stopping depo, starting pill Marleny Youssef RN documented in this encounter Plan of Treatment Upcoming Encounters Date Type Department Care Team (Late st Contact Info) Description 10/21/2024 8:00 AM EDT Office Visit [facility] [address] [place] [address] Angi Resendiz MD [address] [place] [address] 10/21/2024 1:30 PM EDT Telemedicine Psychiatry Teresa Valdivia [address] [place] [address] Ilya Stovall MD [address] [place] [address] 12/10/2024 3:00 PM EDT [facility] 132 [facility] [place] [address] Ema Vargas PA-C [address] [facility] [place] [id number] 04/22/2025 8:00 AM EDT Office Visit Gynecology/Obstetrics Cliffordmichelle Hernandez [address] [place] [address] Demi Jolly PA-C [address] [place] [address] Scheduled Procedures Name Priority Associated Diagnoses Date/Ti me COLONOSCOPY FLEXIBLE PROXIMA L DIAGNOSTIC Recall History of colonic polyps Health Maintenance Due Date Last Done Comments HIV Screening 2013 Hepatitis C Screening 01/23/2016 Hepatitis B Vaccine (1 of 3 - 19+ 3-dose series) 2017 COVID-19 Vaccine (3 - 2023- season) 2024 12/11/2020, 11/13/2020 Influenza Vaccine (FLU [...] as of this encounter Visit Diagnoses Diagnosis Oral contraceptive pill surveillance- Primary Surveillance of previously prescribed contraceptive pill documented in this encounter Care Teams Application Spec Relationship Specialty Start Date End Date Yuan Redd III, MD [address] [facility] [place] [address] PCP - General Family Medicine 07/15/23 documented as of this encounter
--- OUTSIDE RECORDS SUMMARY | 2024-10-21 09:10 | External Medical Summary | Summary of Care ---
Author Name Unknown Organization [facility] Address [address] [place] [address] Phone [phone] Care Team Providers Care Health And Safety Advisor Name Role Phone Ivania CLEVELAND MD, John E Primary Care Provider [phone] Encounter Details Date Type Department Care Team (Late st Contact Info) Description 09/07/2024 Telephone Family Practice [facility] 200 [facility] [place] [address] Yuan Redd III, MD [address] [place] [address] Allergies Active Allergy Reactions Criticality Noted Date Comments Food (See Comments) 04/30/2018 Kiwi tongue escalante documented as of this encounter (statuses as of 09/07/2024) Medications Trospium Chloride 20 MG Oral Tablet [...] mouth twice daily 90 Tablet 5 Active Multivit/Multi mineral Adult Oral Liquid Take 1 Tablet by mouth every evening. Active Sucralfate 1 GM/10ML Oral Suspension (Carafate)Kelly cations:Epigas tric pain Take 10 mL by mouth in the morning and 10 mL at noon and 10 mL in the evening and 10 mL before bedtime. 420 mL 5 09/07/19 25 Discontin ued(Juvencio wayne/Sydney ) Hospital, Clinic, or Other Facility Administered Medication Ordered Dose Route Frequency Start Date End Date Status medroxyPROGESTERone (contracep) (Depo-Provera) inj 150 mgIndications:Surveillance for Depo-Provera contraception 150 mg IM [id number] 04/14/2024 Active documented as of this encounter (statuses as of 09/07/2024) Active Problems Problem Noted Date Diagnosed Date Epigastric pain 04/27/2024 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 04/27/2024 Generalized abdominal pain 04/27/2024 Generalized anxiety disorder 02/02/2024 PTSD (post-traumatic stress disorder) 02/02/2024 Severe episode of recurrent major depressive disorder, without psychotic features 08/13/2021 POTS (postural orthostatic tachycardia syndrome) 08/18/2019 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 documented as of this encounter (statuses as of 09/07/2024) Resolved Problems Problem Noted Date Diagnosed Date Resolved Date 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 02/20/2021 documented as of this encounter (statuses as of 09/07/2024) Immunizations Name Administration Dates Next Due COVID-19 [...] Industry 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 Med list updated * Telephone Encounter - Paula Lujan OSA - 09/07/2024 12:12 PM EST 09/07/24 Rec DENIAL from [employer] Insurance for Carafate (Sucralfate). Diagnosis submitted ins not an FDA-approved indication for the requested product. Please see paperwork for documentation needed. (Highlighted section) Paperwork was given to Dr. Resendiz and placed in her "In Box". documented in this encounter Plan of Treatment Upcoming Encounters Date Type Department Care Team ([facility] st Contact Info) Description 09/16/2024 1:30 PM EST Telemedicine Psychiatry [place] [address] [place] [address] Ilya Stovall MD [address] [place] [address] 10/01/2024 1:00 PM EST Nurse Only Gynecology/Obstetrics [facility] 132 [facility] [place] [address] Gw, Nurse Obgyn Injection 132 [facility] [place] [address] 10/21/2024 8:00 AM EDT Office Visit [address] [phone] Kurt Resendiz MD 21 [place] [address] 12/10/2024 3:00 PM EDT Office Visit Cardiology, [facility] 132 [facility] [place] [address] Ema Vargas PA-C 400 [facility] [place] [address] 04/22/2025 8:00 AM EDT Office Visit Gynecology/Obstetrics [facility] 132 [facility] [place] [address] Demi Jolly PA-C 132 [facility] [place] [address] Scheduled Procedures Name Priority Associated Diagnoses Date/Ti [...] filedocumented as of this encounter Care Teams Health And Safety Advisor Relationship Specialty Start Date End Date Yuan Redd III, MD [address] [place] [address] PCP - General Family Medicine 07/15/23 documented as of this encounter
--- OUTSIDE RECORDS SUMMARY | 2024-10-21 09:10 | External Medical Summary | Summary of Care ---
Author Name Unknown Organization [facility] Address [address] [place] [address] Phone [phone] Care Team Providers Care Corporate Director Name Role Phone Ivania CLEVELAND MD, John E Primary Care Provider [phone] Encounter Details Date Type Department Care Team (Late st Contact Info) Description 09/07/2024 Telephone Family Practice [facility] 200 [place] [address] Yuan Redd III, MD [address] [place] [address] Allergies Active Allergy Reactions Criticality Noted Date Comments Food (See Comments) 04/30/2018 Kiwi tongue escalante documented as of this encounter (statuses as of 09/08/2024) Medications Trospium Chloride 20 MG Oral Tablet [...] mgIndications:Surveillance for Depo-Provera contraception 150 mg IM [id number] 04/14/2024 Active documented as of this encounter (statuses as of 09/08/2024) Active Problems Problem Noted Date Diagnosed Date Epigastric pain 04/27/2024 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 04/27/2024 Generalized abdominal pain 04/27/2024 Generalized anxiety disorder 02/02/2024 PTSD (post-traumatic stress disorder) 02/02/2024 Severe episode of recurrent major depressive disorder, without psychotic features 08/13/2021 POTS (postural orthostatic tachycardia syndrome) 08/18/2019 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 Diagnosis submitted ins not an FDA-approved indication for the requested product. Please see paperwork for documentation needed. (Highlighted section) Paperwork was given to Dr. Resendiz and placed in her "In Box". documented in this encounter Plan of Treatment Upcoming Encounters Date Type Department Care Team ([facility] st Contact Info) Description 09/16/2024 1:30 PM EST Telemedicine Psychiatry [place] [address] [place] [address] Ilya Stovall MD [address] [place] [address] 10/01/2024 1:00 PM EST Nurse Only Gynecology/Obstetrics [facility] 132 [facility] [place] [address] Gw, Nurse Obgyn Injection 132 [facility] [place] [address] 10/21/2024 8:00 AM EDT Office Visit [address] [phone] Kurt Resendiz MD 21 [place] [address] 12/10/2024 3:00 PM EDT Office Visit Cardiology, [facility] 132 [facility] [place] [address] Ema Vargas PA-C 400 [facility] [place] [address] 04/22/2025 8:00 AM EDT Office Visit Gynecology/Obstetrics [facility] 132 [facility] [place] [address] Demi Jolly PA-C 132 [facility] [place] [address] Scheduled Procedures Name Priority Associated Diagnoses Date/Ti [...] filedocumented as of this encounter Care Teams Corporate Director Relationship Specialty Start Date End Date Yuan Redd III, MD [address] [place] [address] PCP - General Family Medicine 07/15/23 documented as of this encounter
--- OUTSIDE RECORDS SUMMARY | 2024-10-21 09:10 | External Medical Summary | Summary of Care ---
Author Name Unknown Organization [facility] Address [address] [place] [address] Phone [phone] Care Team Providers Care Packager And Strapper Name Role Phone Ivania CLEVELAND MD, John E Primary Care Provider [phone] Encounter Details Date Type Department Care Team (Late st Contact Info) Description 09/07/2024 Telephone Family Practice [facility] 200 [facility] [place] [address] Yuan Redd III, MD [address] [place] [address] Allergies Active Allergy Reactions Criticality Noted Date [...] mgIndications:Surveillance for Depo-Provera contraception 150 mg IM [id number] 04/14/2024 Active documented as of this encounter [...] Industry 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 Job End Date 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 Diagnosis submitted ins not an FDA-approved indication for the requested product. Please see paperwork for documentation needed. (Highlighted section) Paperwork was given to Dr. Resendiz and placed in her "In Box". documented in this encounter Plan of Treatment Upcoming Encounters Date Type Department Care Team ([facility] st Contact Info) Description 09/16/2024 1:30 PM EST Telemedicine Psychiatry [place] [address] [place] [address] Ilya Stovall MD [address] [place] [address] 10/01/2024 1:00 PM EST Nurse Only Gynecology/Obstetrics [facility] 132 [facility] [place] [address] Gw, Nurse Obgyn Injection 132 [facility] [place] [address] 10/21/2024 8:00 AM EDT Office Visit [address] [phone] Kurt Resendiz MD 21 [facility] [place] [address] 12/10/2024 3:00 PM EDT Office Visit Cardiology, [facility] 132 [facility] [place] [address] Ema Vargas PA-C 400 [facility] [place] [address] 04/22/2025 8:00 AM EDT Office Visit Gynecology/Obstetrics [facility] 132 [facility] [place] [address] Demi Jolly PA-C 132 [facility] [place] [address] Scheduled Procedures Name Priority Associated Diagnoses Date/Ti [...] filedocumented as of this encounter Care Teams Packager And Strapper Relationship Specialty Start Date End Date Yuan Redd III, MD [address] [place] [address] PCP - General Family Medicine 07/15/23 documented as of this encounter
--- OUTSIDE RECORDS SUMMARY | 2024-10-21 09:10 | External Medical Summary | Summary of Care ---
Author Name Unknown Organization [facility] Address [address] [place] [address] Phone [phone] Care Team Providers Care Tool Hardener Name Role Phone Ivania CLEVELAND MD, John E Primary Care Provider [phone] Encounter Details Date Type Department Care Team (Late st Contact Info) Description 09/07/2024 Telephone Family Practice [facility] 200 [place] [address] Yuan Redd III, MD 200 [place] [address] Allergies Active Allergy Reactions Criticality Noted Date [...] mgIndications:Surveillance for Depo-Provera contraception 150 mg IM [id number] 04/14/2024 Active documented as of this encounter [...] Industry 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 Job End Date 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 Diagnosis submitted ins not an FDA-approved indication for the requested product. Please see paperwork for documentation needed. (Highlighted section) Paperwork was given to Dr. Resendiz and placed in her "In Box". documented in this encounter Plan of Treatment Upcoming Encounters Date Type Department Care Team ([facility] st Contact Info) Description 09/16/2024 1:30 PM EST Telemedicine Psychiatry [place] [address] [place] [address] Ilya Stovall MD [address] [place] [address] 10/01/2024 1:00 PM EST Nurse Only Gynecology/Obstetrics [facility] 132 [facility] [place] [address] Gw, Nurse Obgyn Injection 132 [facility] [place] [address] 10/21/2024 8:00 AM EDT Office Visit [address] [phone] Kurt Resendiz MD 21 [facility] [place] [address] 12/10/2024 3:00 PM EDT Office Visit Cardiology, [facility] 132 [facility] [place] [address] Ema Vargas PA-C 400 [facility] [place] [address] 04/22/2025 8:00 AM EDT Office Visit Gynecology/Obstetrics [facility] 132 [facility] [place] [address] Demi Jolly PA-C 132 [facility] [place] [address] Scheduled Procedures Name Priority Associated Diagnoses Date/Ti [...] filedocumented as of this encounter Care Teams Tool Hardener Relationship Specialty Start Date End Date Yuan Redd III, MD [address] [place] [address] PCP - General Family Medicine 07/15/23 documented as of this encounter
--- OUTSIDE RECORDS SUMMARY | 2024-10-21 09:10 | External Medical Summary | Summary of Care ---
Author Name Unknown Organization [facility] Address [address] [place] [address] Phone [phone] Care Team Providers Care Communications Controller Name Role Phone Ivania CLEVELAND MD, John E Primary Care Provider [phone] Reason for Visit * Reason Onset Date Comments Medication Refill 08/25/2024 Medication Pre-auth 08/16/2024 Encounter Details Date Type Department Care Team (Late st Contact Info) Description 08/16/[address] [facility] [address] [facility] [place] [address] Óscar Foster III, MD [address] [place] [address] Medication Refill; Medication Pre-auth Allergies Active Allergy [...] mgIndications:Surveillance for Depo-Provera contraception 150 mg IM [id number] 04/14/2024 Active documented as of this encounter [...] Industry 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 Job End Date [employer] at [employer] Not on file Not on file Not on file documented as of this encounter Miscellaneous Notes * Telephone Encounter - Angela Jefferson, [facility] - 09/02/2024 2:58 PM EST left message on machine to call office When pt calls back let her know that We received a letter stating that Sulcralfate 1GM/10ml or susp was denied. * Telephone Encounter - Dandy Torres [facility] - 09/02/2024 9:41 AM EST No action needed. Denial already sent to provider. Thank You, Dandy Torres, Pharm-D Clinical Pharmacist [facility] ([facility]) [phone] 09/02/2024, 9:42 AM * Telephone Encounter - Judah Zurita CPhT - 09/02/2024 8:25 AM EST Checked status of prior authorization for Sucralfate 1GM/10ML through [facility]. Routed high priority to refill call center pharmacist pool due to denial. Denial reason: The requested medication is not FDA-approved for the diagnosis provided. Depending on the diagnosis submitted, there may be additional criteria which must be met for the requested medication to be considered for approval. Per note below denial notice already in provider inbox Thank you, Lalit Zurita (molten iron pourer) Glassware Maker Demonstrator III [facility] ([facility]) 09/02/2024, 8:25 AM * Telephone Encounter - Paula Lujan OSA - 09/01/2024 10:34 AM EST 09/01/24 Rec a DENIAL from Clinical Services Team Pharmacy Services Department for Sucralfate 1GM/10ML or SUSP. Placed DENIAL in Dr. Resendiz's "In Box" today. * Telephone Encounter - Yumiko Durbin PHARM Tech - 08/31/2024 1:12 PM EST Submitted information in previous note via CMM (Wray: [id number]).. Awaiting payer response. We will follow-up with insurance starting 09/02. Per [facility] request, if no decision is received from insurance by 09/03, we will route back to the [facility] after clarifying with the pharmacy that the claim is still not processing. Thank you, Yumiko Durbin CPhT Glassware Maker Demonstrator II [facility] ([facility] 08/31/2024,1:12 PM * [facility] - [facility]30[facility] 11:49 AM EST Please resubmit with DX of GERD ICD10 code K21.9, please also include OV note 02/02/24 providing documentation of dx. If denied we can attempt to see if tablets Thank you, Karina De Santiago PharmD Clinical Pharmacist [facility] ([facility]) 08/30/24 11:49 AM [phone] * Telephone Encounter - Judah Zurita CPhT - 08/30/2024 8:53 AM EST Checked status of prior authorization for Sucralfate 1GM/10ML through CMM. Routed high priority to refill call center pharmacist pool due to denial. Denial reason: The requested medication is not FDA-approved for the diagnosis provided. Thank you, Lalit Zurita ([facility]) Glassware Maker Demonstrator III [facility] 08/30/2024, 8:53 AM * Telephone Encounter - Judah Zurita CPhT - 08/27/2024 9:09 AM EST Checked status of prior authorization for Sucralfate 1GM/10ML suspension through CMM. Awaiting response from insurance. [employer] will review again. Reminder: Pharmacist requests prior auth be sent back if no response by 08/30. Thank you, Lalit Zurita ([facility]) Glassware Maker Demonstrator III [facility] 08/27/2024, 9:09 AM * Telephone Encounter - Aletha Bernabe OSA - 08/26/2024 6:00 PM EST Submitted information in previous note via CMM (Wray: [email or web address] Awaiting payer response. We will follow-up with insurance starting 08/27. Per [facility] request, if no decision is received from insurance by 08/30, we will route back to the [facility] after clarifying with the pharmacy that the claim is still not processing. SHAHLA Ortiz MEDICATION AUTO TIRE RECAPPER, [facility] [email or web address] [phone] - phone [phone] - fax 08/26/2024,6:00 PM * Telephone Encounter - Brendon Escoto [facility] - 08/26/2024 10:08 AM EST Please submit [...] upon this and route back to the [facility] pool if no decision is made by the insurance by 08/30, after clarifying with the pharmacy that the claim is still not processing. If [place] is denied, please also route back to [facility]. Thanks, Brendon Escoto PharmD Clinical Pharmacist [facility] ([facility]) [phone] 08/26/2024, 10:08 AM * Telephone Encounter - Haleigh Delatorre [facility] - 08/25/2024 2:21 PM EST Unable to reach patient. LMOVM. Please transfer her back to myself. If I'm not available, transfer to next available [facility]. In OV note, refill only (changed to suspension, patient did not tolerate pills) Please assess how the patient did not tolerate the pills? Will need provider to document that in OVbefore we can submit for PA Thank you, Haleigh Delatorre [facility] Clinical Pharmacist [facility] ([facility]) 08/25/24 2:21 PM [phone] * Telephone Encounter - Eugenia Uribe specifications checker - 08/25/2024 2:07 PM EST This is a new [place] request. Upon review of this prior authorization request, I verified this request is appropriate. This is prescribed by a department for which [facility] is authorized to review prior authorizations This [...] note, there is nothing currently pending in [facility] for this request. Please advise how to proceed. Thanks, Eugenia Uribe Glassware Maker Demonstrator III [facility] 08/25/2024,2:07 PM * Telephone Encounter - Olga Sloan PHARM Tech - 08/25/2024 12:31 PM EST Pharmacy calling to inform doctor that the patient's insurance will not pay for this medication without a completed prior authorization. Did confirm this information with the pharmacy. Pt's current insurance information is as follows: Patient name: Tiffany Jaimes ID number: [id number] BIN number: [id number] PCN number: Group number: [id number] Subscriber name: Tiffany Jaimes Primary or Secondary Insurance:Primary Medication: Sucralfate 1 GM/10ML Oral Suspension (Carafate) Reason for Request: Needs a [place] Pharmacy and phone number: [facility] [id number] [place] Rx plan and phone number: [employer] [phone] Is this a new medication for the patient? Yes What alternative medications does the pharmacy have in stock?: Thank you, Olga Sloan Surgical Assist [facility] 08/25/2024, 12:31 PM * Telephone Encounter - [...] Telemedicine Psychiatry [facility] [place] [address] [place] [address] Ilya Stovall MD [address] [place] [id number] 10/01/2024 1:00 PM EST Nurse Only Gynecology/Obstetrics [facility] [address] [facility] [place] [address] Gw, Nurse Obgyn Injection [address] [facility] [place] [address] 10/21/2024 8:00 AM EDT Office Visit [address] [address] [facility]i [facility] [address] [facility] [place] [address] 12/10/2024 3:00 PM EDT Office Visit Cardiology, [facility] [address] [facility] [place] [address] Ema Vargas PA-C [address] [place] [address] [place] [address] 04/22/2025 8:00 AM EDT Office Visit Gynecology/Obstetrics Tracy Hernandez [address] [place] [address] Demi Jolly PA-C [address] [place] [address] Scheduled Procedures Name Priority Associated Diagnoses Date/Ti [...] filedocumented as of this encounter Care Teams Communications Controller Relationship Specialty Start Date End Date Óscar Foster III, MD [address] [place] [address] PCP - General Family Medicine 07/15/23 documented as of this encounter
--- OUTSIDE RECORDS SUMMARY | 2024-10-21 09:10 | External Medical Summary | Summary of Care ---
Author Name Unknown Organization [facility] Address [address] [place] [address] Phone [phone] Care Team Providers Care Distribution Analyst Name Role Phone Ivania CLEVELAND MD, Yuan Ya Primary Care Provider [phone] Reason for Visit * Reason Comments Follow Up * - Authorized Specialty Diagnoses / Procedures Referred By Luis F t Referred To Contact Referral ID Status Reason Start Date Expiration Date V isits Requested Visits Authorized [id number] Authorized 03/28/2024 03/27/2025 [id number] Encounter Details Date Type Department Care Team (Late st Contact Info) Description 09/16/2024 1:30 PM EST Telemedicine Psychiatry Teresa Valdivia [address] [place] [address] Ilya Stovall MD [address] [place] [address] Moderately severe recurrent major depression (HCC)*; SHLOMO (generalized anxiety disorder); PTSD (post-traumatic stress disorder) Allergies Active Allergy Reactions Criticality Noted Date Comments Food (See Comments) 04/30/2018 Kiwi tongue escalante documented as of this encounter (statuses as of 09/16/2024) Medications Trospium Chloride 20 MG Oral Tablet (Sanctura) Take 1 Tablet by mouth every evening. 30 Tablet 6 04/09/20 24 Active Additional Information Patient not taking.Reported on 08/23/2024 Omeprazole 40 MG Oral Capsule Delayed Release (PriLOSEC) Take 1 Capsule by mouth in the morning. 30 Capsule 3 12:37 PM EST 07/30/19 25 Active Metoprolol Succinate ER 100 MG Oral Tablet Extended Release 24 Hour (toPROL XL) Take 1/2 (one-half) tablet by mouth twice daily 90 Tablet 08/16/19 25 Active Multivit/Mult imineral Adult Oral Liquid Take 1 Tablet by mouth every evening. Active Mirtazapine 15 MG Oral Tablet (Remeron) Take 1 Tablet by mouth at bedtime. 30 Tablet 2 09/16/19 25 Active lamoTRIgine 100 MG Oral Tablet (LaMICtal) Take 0.5 Tablets by mouth in the morning and 0.5 Tablets before bedtime. 30 Tablet 2 09/16/19 25 Active LORazepam 0.5 MG Oral Tablet (Ativan) Take 1 Tablet by mouth 2 times a day as needed for Anxiety. 60 Tablet 2 09/16/19 25 Active Gabapentin 300 MG Oral Capsule (Neurontin) Take 1 Capsule by mouth in the morning and 1 Capsule before bedtime. 60 Capsule 2 09/16/19 25 Active lamoTRIgine 100 MG Oral Tablet (LaMICtal) Take 0.5 Tablets by mouth in the morning and 0.5 Tablets before bedtime. 30 Tablet 2 07/12/20 24 025 Discontinued(Re fill) Gabapentin 300 MG Oral Capsule (Neurontin) Take 1 Capsule by mouth in the morning and 1 Capsule before bedtime. 60 Capsule 2 07/12/20 24 025 Discontinued(Re fill) DULoxetine HCl 20 MG Oral Capsule Delayed Release Particles (Cymbalta) Take 1 Capsule by mouth in the morning. 30 Capsule 2 07/12/20 24 025 Discontinued LORazepam 0.5 MG Oral Tablet (Ativan) Take 1 Tablet by mouth 2 times a day as needed for Anxiety. 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 04/27/2024 Generalized abdominal pain 04/27/2024 Generalized anxiety disorder 02/02/2024 PTSD (post-traumatic stress disorder) 02/02/2024 Severe episode of recurrent major depressive disorder, without psychotic features 08/13/2021 POTS (postural orthostatic tachycardia syndrome) 08/18/2019 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 documented as of this encounter (statuses as of 09/16/2024) Resolved Problems Problem Noted Date Diagnosed Date Resolved Date 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 02/20/2021 documented as of this encounter (statuses as of 09/16/2024) Immunizations Name Administration Dates Next Due COVID-19 [...] Industry 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 Job End Date 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 I was not in a hospital or clinic location. After connecting through [employer], patient was verified with two unique identifiers. Patient (or authorized legal business services representative)was then informed that this was a Telemedicine visit and being conducted confidentially over securelines. Methods to assure confidentiality were taken. Patient acknowledged consent and understandingof privacy and security of the Telemedicine visit. The patient agreed to participate. CC: f/u for IOP medication management and psychotherapy INTERVAL HISTORY: 09/16/24 - PHQ-9 is 17 (Q1 is 3, Q2 is 3, Q9 is 1). She reports ongoing issues with decreased appetite. C/O wt loss. Got Covid the week before Edwards's day. Covid worsened her appetite even further-- she says she is only eating 1 meal per day because her appetite is low. Wt has decreased to 165#, down from about 170# when she first got Covid. She says she is trying to be conscientious about what she eats (small meals throughout the day, healthier choices). She had to take a week off work, which affected her financially and she is still recovering from this. She also had some unexpected dental expenses. Depression has worsened. Boyfriend left her on Edwards's day. She believes her labile mood and irritability contributed towards their breakup. Worsening insomnia since 1 week ago. She stopped going to psychotherapy with Rosmery at [facility] because she didn't feel like she was benefiting from psychotherapy. She says she is considering calling back to [facility] tosee if she can find a new therapist. Medication adherence: she estimates forgetting about 25% of the time Reported medication side effects: denies any that she has noticed She denies suicidal ideation. No manic symptoms, psychotic symptoms, AH, or VH elicited. 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 (In the Past Month or Since Last Visit) Yes Have you had any actual thoughts of killing yourself? (In the Past Month or Since Last Visit) No Have you been thinking about how you might do this? (In the Past Month or Since Last Visit) No Have you had thoughts and had some intention of acting on them? (In the Past Month or Since Last Visit) No Have you started to work out or worked out the details of how to kill yourself? Do you intend to carry out this plan? (In the Past Month or Since Last Visit) No Have you ever done anything, started to do anything, or prepared to do anything to end your life? (Lifetime) Yes Was this within the past 3 months? No Level of Risk Moderate Protective Factors Social Support/Family;Future Plans;Access to appropriate services;Willing to participate in less restrictive means of help;Identifies reasons for living;Cares about job/school;Help-Seeking Behaviors Risk Factors History of Depression;History of self-harm;Family history of suicide attempts/completion;Anxiety;Physical illness/chronic pain;History of Trauma Hx from Previous Appts 07/12/24 - She had sent a message in the beginning of June about wt loss and reduced appetite. She had lost 8# since the end of April when she started duloxetine. She says her weight and appetite have been stabilized since 2 weeks ago when she sent the message. She started a new job and she believes the increased physical activity at her job has improved her appetite. "So far so good" -- re: her impressions about the new job. She says her anxiety has been manageable. She has been attending individual psychotherapy with [facility]. She typically takes one PRN Ativan daily, rarely takes the available second dose. 05/25/24 - She says that things have begun to feel monotonous again. She believes this represents arecurrence of her depression. She says she isn't getting giuseppe out of doing things the way she did inthe past. She says she has been relying on Ativan to calm her down more than she would prefer. She does not feel that she did well with antidepressants in the past, but she is open to trying a new one such as Cymbalta now. Since our last appointment, she says she started weekly in-person individualpsychotherapy with [facility] at [facility]. 04/06/24 - PHQ-9 is 9 (Q9 is 0). SHLOMO-7 is 7. She says she unintentionally missed her appt with Dr. Harris in December and never called back to reschedule as she waited so long for this intake in the first place, and figured it wasn't worth it to bother calling back to reschedule. She says her PCP provided some bridge BH treatment in the interim until now. She stopped her gabapentin because she ran out -- denies any w/d sx. She hasn't yet picked up her refill I sent earlier this month. She reports consistent adherence to the lamotrigine. She reports that her anxiety has improved in the past week or two. 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 She reports an uptick in the amount of EtOH she is using -- "some of it is just stress." Denies that she has a problem with alcohol use. She says she hasn't been able to find an individual therapist in the community-- reports all the practices she called in the community had waitlists >6 months and wouldn't even take her name. 11/24/23 - She was in the ED last week with panic attacks. She says the only trigger for this she could identify is being alone--this hasn't changed recently though so she doesn't know why this would now trigger panic attacks. In further discussion she revealed that she had run out of gabapentin several days prior to this panic attack -- states she didn't have time to get to the pharmacy to car pick up driver the refill. She says she was having a rough weekend, very tearful that day. Ativan wasn't helping her. Tried a CBD pen -- slept for a bit and then woke up with a panic attack. Denies any THC or CBD use since then -- "it made me sick and I didn't want to use it again." She called EMS who took her to the ED via ambulance. She was given IV Zofran for nausea and IV Benadryl for anxiety. She says sheis doing better since coming home from ED. She is taking Ativan more often, but not every day. She estimates using Ativan 0.5mg only four times in the past week -- she is trying to be cautious andsparing in her use of PRN Ativan. She says that switching gabapentin timing from 100mg TID to 100mgQAM and 200mg QHS did help with nightmares. She says school is going well, though busy. She anticipates finishing her current degree program at the end of this year. She will work for [employer] after this. She shares that she expects to move in with her boyfriend soon. 10/16/23 - PHQ-9 is 4 (Q9 is 0). SHLOMO-7 is 2. Reports her anxiety is better controlled with the recent medication changes. Has only used PRN Ativan like 3 or 4 times since our last appointment. When she does take Ativan, typically only takes 1/2 of a tablet at a time. She continues to use hydroxyzine1-2x per day. Denies any sedation or somnolence when she takes just 25mg of hydroxyzine. Reports anincreased frequency of nightmares due to recent interpersonal stressors, namely having to spend more time with her mother. She inquired about pharmacological and non-pharmacological treatments for nightmares. She could not tolerate prazosin in the past. We discussed the role of guided imagery, image rehearsal therapy and meditation to address nightmares non-pharmacologically. We discussing her eating habits and nutrition in the last month. Says that her appetite has actually been low in the last week, eating less, no binging episodes in recent hx. 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 She missed her intake appt with Dr. Harris earlier this month. She says her anxiety has increased since our last appt. She describes this anxiety as constant worrying, rumination, catastrophizing, irrational thoughts. These anxious thoughtsmake her want to lay down and isolate at the end of each day. She reports she realized that Buspar was causing adverse effects (lightheadedness, presyncope, nausea). She has been off the Buspar sinceabout 2 weeks ago. She has increased her frequency of taking hydroxyzine PRN upon the advice of herPCP, while waiting to speak again with psychiatry. She has cut back on her alcohol use -- now only h aving 1-2 drinks per week. Remains abstinent from THC. [facility] 07/29/23 - Pt reports she stopped prazosin due to lightheadedness and several episodes where she stood up and passed out. Lightheadedness resolved after she stopped the prazosin. She has since sufferedthe recurrence of several nightmares in the past few weeks. She reports good adherence to lamotrigine and feels that this has improved her motivation and her eating habits. She is trying to eat healthier. She is going to the gym 4x per week. Doing more crafts and activities. Spending time with her boyfriend. Also feels less irritable. She still uses hydroxyzine PRN when she is acutely anxious. She estimates she is using this several days per week, 1-2 at a time, 1-2x per day. 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 She reports she is generalized satisfied with her current medication regimen and not looking to make further changes at this time. 06/23/23 - We discussed her binge eating. Says she forced herself to go to the store yesterday and buy more healthy foods. She describes having episodes 3 or 4 times per week where she eats until sheis uncomfortably full. These episodes have a duration of 30 to 60 mins. Sometimes these episodes oflinked to watching TV. She denies a loss of control in the moment. She describes this as absent-minded eating, "out of boredom I suppose." She believes she has had this behavior since she began college. She worries about her eventual risk of developing type 2 diabetes. She is trying to watch less TV and instead play video games, study, or go to the gym. Anticipated discharge from [facility] on FridayJun 27. 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 She is excitedand also nervous. We discussed her response to lamotrigine -- reports less irritability, but limited change in her depression. She continues to have some lightheadedness from prazosin, though she is used to orthostasis from POTS. She is taking her time to stand up. No syncope. She reports the benefits from prazosin have been unequivocal to prevent nightmares. 06/16/23 - She describes recent stressors. She had an argument with a friend. This triggered some past trauma. She says that she struggles with confrontation. She says she had to kick him out of her apartment. Anticipated d/c from IOP on 06/27/23. Prazosin continues to be helpful to prevent nightmares and night terrors. She missed her dose one night and had a nightmare. Lightheadedness hasn't significantly worsened since beginning prazosin. She is trying to be liberal with her salt intake. She advanced her dose of lamotrigine as planned last week--reports this is helping with irritability. Sheshares today about her history of binge eating. Says more recently she has had to fight this tendency. Does not think she is gaining weight but does not keep a scale at home because this is triggering. Denies any history of purging or anorexia. 06/11/23 - She says last week was a tough week. Ear drums were ruptured from recent flights. She vanna antibiotics and prednisone now. Pain is slowly improving. Depression, "hasn't been too bad." Shedoes believe the lamotrigine is helping, especially with irritability. Anxiety was temporarily worsened by being at home -- "I definitely wanted to just leave many times." Pt reports being around hermother is difficult. She believes the prazosin has been helpful for sleep and that it must be preventing nightmares because she hasn't had any nightmares since she started prazosin 2 weeks ago. Reports she continues to find IOP to be beneficial. Some groups are triggering difficult emotions. She shares about her efforts to learn and apply CBT. She would to establish with an individual therapist but hasn't been able to accomplish this yet. 05/28/2023 - She says she had night terrors all night and woke up with a headache. She was feeling too unwell to participate in group. Says she did not know how or who to call in order to cancel. Reports having two nights of nightmares in the past week. She is not able to identify any particular trigger or stressor contributing to this. She says her mood has been "fine." Reports yesterday was a bad day for grief. "I spent quite a few hours crying." She began lamotrigine 25mg daily this past Friday. She says the higher dose of Buspar has been helpful for her anxiety so far. She is trying to make efforts to stay busier, to get out of the house. She says she knows that staying home all day willmake her depression worse. In terms of mood, she says she is feeling slightly less hopeless this week compared to last. 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 Says she also needs to study for this. She intends to return to group on Friday. She continues to find the IOP program to be beneficial overall. 05/23/23 - The patient was seen for psychiatric evaluation as part of treatment in the IOP. Recent stressors: and her have . Mother in law in December of this past year. Sheis dealing with a lot of grief. She c/o sx of depression including amotivation and anhedonia. Depression worsened recently that she had to leave her job. Feeling somewhat better in the past week. Shehad more energy yesterday. She began IOP on 05/19/23. She says the program has been helpful so far,especially being able to empathize with others. ALLERGIES Review of patient's allergies indicates: Allergen Reactions Food (See Comments) Kiwi tongue escalante CURRENT MEDICATIONS: Current Outpatient Medications Medication Sig Dispense Refill Trospium Chloride 20 MG Oral Tablet (Sanctura) Take 1 Tablet by mouth every evening. (Patient not taking: Reported on 08/23/2024) 30 Tablet 6 lamoTRIgine 100 MG Oral Tablet (LaMICtal) Take 0.5 Tablets by mouth in the morning and 0.5 Tablets before bedtime. 30 Tablet 2 Gabapentin 300 MG Oral Capsule (Neurontin) Take 1 Capsule by mouth in the morning and 1 Capsule before bedtime. 60 Capsule 2 DULoxetine HCl 20 MG Oral Capsule Delayed Release Particles (Cymbalta) Take 1 Capsule by mouth in the morning. 30 Capsule 2 LORazepam 0.5 MG Oral Tablet (Ativan) Take 1 Tablet by mouth 2 times a day as needed for Anxiety. 60 Tablet 2 Omeprazole 40 MG Oral Capsule Delayed Release (PriLOSEC) Take 1 Capsule by mouth in the morning. 30Capsule 3 Metoprolol Succinate ER 100 MG Oral Tablet Extended Release 24 Hour (toPROL XL) Take 1/2 (one-half)tablet by mouth twice daily 90 Tablet 0 Multivit/Multimineral Adult Oral Liquid Take 1 Tablet by mouth every evening. Current Facility-Administered Medications Medication Dose Route Frequency Provider Last Rate Last Admin medroxyPROGESTERone (contracep) (Depo-Provera) inj 150 mg 150 mg Intramuscular Q90 Days 150 mg at 07/09/24 1312 RECENT LABS/IMAGING: No results found for this or any previous visit (from the past 4 weeks). VITALS There were no vitals filed for this visit. Wt Readings from Last 3 Encounters: 08/23/24 81 kg (178 lb 9.6 oz) 07/30/24 77.1 kg (170 lb) 05/28/24 82.6 kg (182 lb 3.2 oz) There is no height or weight on file to calculate BMI. CURRENT MEDICATIONS: Current Outpatient Medications Medication Sig Dispense Refill Trospium Chloride 20 MG Oral Tablet (Sanctura) Take 1 Tablet by mouth every evening. (Patient not taking: Reported on 08/23/2024) 30 Tablet 6 lamoTRIgine 100 MG Oral Tablet (LaMICtal) Take 0.5 Tablets by mouth in the morning and 0.5 Tablets before bedtime. 30 Tablet 2 Gabapentin 300 MG Oral Capsule (Neurontin) Take 1 Capsule by mouth in the morning and 1 Capsule before bedtime. 60 Capsule 2 DULoxetine HCl 20 MG Oral Capsule Delayed Release Particles (Cymbalta) Take 1 Capsule by mouth in the morning. 30 Capsule 2 LORazepam 0.5 MG Oral Tablet (Ativan) Take 1 Tablet by mouth 2 times a day as needed for Anxiety. 60 Tablet 2 Omeprazole 40 MG Oral Capsule Delayed Release (PriLOSEC) Take 1 Capsule by mouth in the morning. 30Capsule 3 Metoprolol Succinate ER 100 MG Oral Tablet Extended Release 24 Hour (toPROL XL) Take 1/2 (one-half)tablet by mouth twice daily 90 Tablet 0 Multivit/Multimineral Adult Oral Liquid Take 1 Tablet by mouth every evening. Current Facility-Administered Medications Medication Dose Route Frequency Provider Last Rate Last Admin medroxyPROGESTERone (contracep) (Depo-Provera) inj 150 mg 150 mg Intramuscular Q90 Days 150 mg at 07/09/24 1312 FAMILY HISTORY: Family History Problem Relation Name Age of Onset Anemia Mother Other (Other) Mother darian bone colon polyps Bipolar Disorder Mother Bipolar Disorder Father Dementia Father early onset Depression Brother Other (Other) Brother Breanna bone Bipolar Disorder Brother Breanna Alzheimer's disease Grandmother (Maternal) Other (Other) Grandmother (Maternal) narcolepsy Alcohol and Other Disorders Associated Grandfather (Maternal) Neuropathy Grandmother (Paternal) Osteoporosis Grandmother (Paternal) Cancer Grandfather (Paternal) 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 Orientation: Fully oriented. Psychomotor: No adventitious motor movements nor tremor observed during this video encounter. Gait and Station: No abnormalities noted via tele-medicine encounter Speech: Normal in volume, rhythm, rate. Mood & Affect: "Good." Affect appeared somewhat constricted, but overall calm. Polite and pleasant in rapport. Associations: Intact, without loosening Thought Process: Logical, linear, goal-oriented. Thought Content: No sx of psychosis evident. Denies homicidal ideation. Suicidal thoughts as per the interval history and [place] screen above. Attention/Concentration: Without evident gross deficits. Not easily distracted during clinical interview. Memory: Grossly intact for recent/remote events. Not formally tested. Insight: Intact. Judgment: Intact. ASSESSMENT AND PLAN: 23 y/o F treated in [facility] in 20[facility]. She has followed with me for ongoing care after finishing this program. She does not describe any clear hypomanic or manic episodes, however she describes multiple things in her history which suggest that rx of a mood stabilizer would be appropriate. Notably poor response to past antidepressants and Zoloft made her irritable. Also she has a very strong Fhx of bipolar di sorder. Psychoeducation and counseling provided. We discussed the importance of consistent adherence to herpsychotropic medications. She was encouraged to return to individual psychotherapy. She was previously following with Rosmery at [facility] in the Fall of 2023. We reviewed and updated her safety plan today. Medications: - d/c duloxetine - start mirtazapine 15mg QHS. She has been counseled about the boxed warning for suicidal thoughts and behaviors. - continue lamotrigine 50mg BID. The risks and benefits of lamotrigine were discussed, I including but not limited to risk of potentially lethal Lyles-Marito rash and need to immediately stop medication and go to ER should this occur, risk of less serious rash and need to notify psychiatrist immediately or seek out medication evaluation if psychiatrist unavailable, possible interactions with OCP and other medications, sedation, dizziness, GI side effects, importance of good adherence as risk of withdrawal seizures with abrupt discontinuation and also need to restart titration ifpt misses more than 3 days of medication in a row. - continue Ativan 0.5mg BID PRN. Discussed common side effects of benzodiazepines, including but not limited to sedation, dizziness, tiredness, addiction potential, habituation and tolerance, and cautioned about not driving or operating machinery, increase risk of falls, possible increased dementiarisk, and other common side effects. The patient verbalized understanding and agreed to take medication as prescribed. PDMP checked with no concerning findings - continue gabapentin 300mg BID Past Psychotropic Medication Trials: - numerous past antidepressant trials, and reports these are generally ineffective - Effexor - does not recall the response, though thinks she stopped this because it wasn't effective - Zoloft - made her very irritable - Prozac was only partially helpful - Prazosin - orthostatic hypotension - Gabapentin - partially effective in the past for anxiety - Hydroxyzine - ineffective or too-sedating, depending on the dose - Duloxetine - inadequate trial, d/c'ed in order to switch to Remeron in Aug 2024 for parsimonious effects to address insomnia and appetite Contraception (Women of Childbearing Age): Depo-Provera Psychotherapy ([id number]) Separate from the E&M service rendered today, 09/16/2024, I also spent >16 minutes providing psychotherapy to Tiffany Jaimes. Modalit(ies) of Therapy: supportive Symptoms, Diagnosis, & Progress in Psychotherapy: as outlined in the note above Therapy Interventions: reflective listening, naming of affect, validation, joining, psycho-education, building rapport, and affirmations. Treatment Plan & Expected Frequency of Therapy: continue psychotherapy during psychiatry appointments as time permits and as medically necessary Response to Therapy & Prognosis: both good Treatment options and alternatives reviewed with patient who agrees with the above plan. Information about current medications was provided to the patient including reasons why medications are being used. Patient understood the risks, benefits, side-effects, and potential complications associated with changes in medications being proposed (both medications being started and medications being discontinued or having dose changed). Patient is making an informed medical decision to follow the recommendations outlined in this note. Risk assessment was performed. This is a patient being treated for chronic mental health conditionsand/or substance use disorder as characterized above; at the time of this visit, there was no indication that this patient was either a risk to self, others, or gravely disabled by symptoms of a mental illness or substance use disorder. At the time of this evaluation, pt did not appear to be an acute risk to self or others, there were enough protective factors in place and it was deemed safe and appropriate to continue with treatment on a outpatient basis with return to clinic in the timeframe described above. We reviewed previous crisis plan should he/she experience worsening of symptoms before next follow-up appointment, including being aware of what resources to use according to the urgency and severityof symptoms. Tiffany Jaimes was able to verbalize understanding of the steps necessary to obtain help between appointments should be needed, from requesting a phone call, to requesting an appointment sooner, including reaching clinic after hours, accessing our system, and accessing emergency mental health and medical services, either at a local emergency department or by activating mobile crisis teams andEMS. Ilya Stovall MD Psychiatrist [facility] [phone] 09/16/2024 documented in this encounter Plan of Treatment Upcoming Encounters Date Type Department Care Team (Late st Contact Info) Description 10/01/2024 1:00 PM EST Nurse Only Gynecology/Obstetrics [facility] [address] [facility] [place] [address] Gw, Nurse Obgyn Injection 132 [facility] [place] [address] 10/21/2024 8:00 AM EDT Office Visit [address] [phone] Angi Resendiz MD 21 [facility] [place] [id number] 10/21/2024 1:30 PM EDT Telemedicine Psychiatry [facility] [address] [place] [address] Ilya Stovall MD 9 [place] [address] 12/10/2024 3:00 PM EDT Office Visit Cardiology, [facility] 132 [facility] [place] [address] Ema Vargas PA-C 400 [facility] [place], [place] [phone] 04/22/2025 8:00 AM EDT Office Visit Gynecology/Obstetrics [facility] [address] [facility] [place] [address] Demi Jolly PA-C 132 [facility] [place] [address] Scheduled Procedures Name Priority Associated Diagnoses Date/Ti [...] as of this encounter Visit Diagnoses Diagnosis Moderately severe recurrent major depression (HCC)- Primary SHLOMO (generalized anxiety disorder) Generalized anxiety disorder PTSD (post-traumatic stress disorder) Posttraumatic stress disorder documented in this encounter Care Teams Distribution Analyst Relationship Specialty Start Date End Date Yuan Redd III, MD [address] [place] [address] PCP - General Family Medicine 07/15/23 documented as of this encounter
--- OUTSIDE RECORDS SUMMARY | 2024-10-21 09:11 | External Medical Summary | Summary of Care ---
Author Name Unknown Organization [facility] Address [address] [place] [address] Phone [phone] Care Team Providers Care Bisque Grader Name Role Phone Ivania CLEVELAND MD, John E Primary Care Provider [phone] Reason for Visit * Reason Onset Date Comments Medication Refill 08/25/2024 Medication Pre-auth 08/16/2024 Encounter Details Date Type Department Care Team (Late st Contact Info) Description 08/16/2024 Telephone Family Practice [facility] 200 [facility] [place] [address] Óscar Foster III, MD 200 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 04/27/2024 Generalized abdominal pain 04/27/2024 Generalized anxiety disorder 02/02/2024 PTSD (post-traumatic stress disorder) 02/02/2024 Severe episode of recurrent major depressive disorder, without psychotic features 08/13/2021 POTS (postural orthostatic tachycardia syndrome) 08/18/2019 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 documented as of this encounter (statuses as of 09/01/2024) Resolved Problems Problem Noted Date Diagnosed Date Resolved Date 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 02/20/2021 documented as of this encounter (statuses as of 09/01/2024) Immunizations Name Administration Dates Next Due COVID-19 [...] Industry 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 Job End Date [employer]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 Placed DENIAL in Dr. Resendiz's "In Box" today. * Telephone Encounter - Yumiko Durbin PHARM Tech - 08/31/2024 1:12 PM EST Submitted information in previous note via CMM (Wray: [id number]).. Awaiting payer response. We will follow-up with insurance starting 09/02. Per [facility] request, if no decision is received from insurance by 09/03, we will route back to the [facility] after clarifying with the pharmacy that the claim is still not processing. Thank you, Yumiko Durbin [facility] Marine Railway Operator II [facility] ([facility]) 08/31/2024,1:12 PM * Telephone Encounter - Karina De Santiago [facility] - 08/30/2024 11:49 AM EST Please resubmit with DX of GERD ICD10 code K21.9, please also include OV note 02/02/24 providing documentation of dx. If denied we can attempt to see if tablets Thank you, Karina De Santiago PharmD Clinical Pharmacist [facility] ([facility]) 08/30/24 11:49 AM [phone] * Telephone Encounter - Judah Zurita CPhT - 08/30/2024 8:53 AM EST Checked status of prior authorization for Sucralfate 1GM/10ML through CMM. Routed high priority to refill call center pharmacist pool due to denial. Denial reason: The requested medication is not FDA-approved for the diagnosis provided. Thank you, Lalit Zurita ([facility]) Marine Railway Operator III [facility] ([facility]) 08/30/2024, 8:53 AM * Telephone Encounter - Judah Zurita CPhT - 08/27/2024 9:09 AM EST Checked status of prior authorization for Sucralfate 1GM/10ML suspension through CMM. Awaiting response from insurance. Bookkeeping Machine Operator will review again. Reminder: Pharmacist requests prior auth be sent back if no response by 08/30. Thank you, Lalit Zurita ([facility]) Marine Railway Operator III [facility] ([facility]) 08/27/2024, 9:09 AM * Telephone Encounter - Aletha Bernabe OSA - 08/26/2024 6:00 PM EST Submitted information in previous note via CMM (Wray: ).[email or web address] Awaiting payer response. We will follow-up with insurance starting 08/27. Per [facility] request, if no decision is received from insurance by 08/30, we will route back to the [facility] after clarifying with the pharmacy that the claim is still not processing. SHAHLA Ortiz MEDICATION FOREST OFFICER, [facility] [email or web address] [phone] - phone [phone] - fax 08/26/2024,6:00 PM * Telephone Encounter - Brendon Escoto [facility] - 08/26/2024 10:08 AM EST Please submit PA. Include the following documentation: 08/23/24 ov Please copy and paste the following information into PA form: Failed use of tablets What other drugs is there medical record documentation of therapeutic failure on, intolerance to, or contraindication to for this condition? Sucralfate in tablet form Grhaam as urgent: No Diagnosis/ICD-10 Code(s): r10.13 If instantaneous decision is not received after submitting prior auth, please continue to follow upon this and route back to the [facility] pool if no decision is made by the insurance by 08/30, after clarifying with the pharmacy that the claim is still not processing. If PA is denied, please also route back to [facility] pool. Thanks, Brendon Escoto PharmD Clinical Pharmacist [facility] ([facility]) [phone] 08/26/2024, 10:08 AM * Telephone Encounter - Haleigh Delatorre [facility] - 08/25/2024 2:21 PM EST Unable to reach patient. LMOVM. Please transfer her back to myself. If I'm not available, transfer to next available [facility]. In OV note, refill only (changed to suspension, patient did not tolerate pills) Please assess how the patient did not tolerate the pills? Will need provider to document that in OVbefore we can submit for PA Thank you, Haleigh Delatorre [facility] Clinical Pharmacist [facility] ([facility]) 08/25/24 2:21 PM [phone] * Telephone Encounter - Eugenia Uribe PHARM Tech - 08/25/2024 2:07 PM EST This is a new PA request. Upon review of this prior authorization request, I verified this request is appropriate. This is prescribed by a department for which [facility] is authorized to review prior [...] note, there is nothing currently pending in [facility] for this request. Please advise how to proceed. Thanks, Eugenia Uribe Marine Railway Operator III [facility] ([facility]) 08/25/2024,2:07 PM * Telephone Encounter - Olga Sloan PHARM Tech - 08/25/2024 12:31 PM EST Pharmacy calling to inform doctor that the patient's insurance will not pay for this medication without a completed prior authorization. Did confirm this information with the pharmacy. Pt's current insurance information is as follows: Patient name: Tiffany Jaimes ID number: [id number] BIN number: [id number] PCN number: Group number: [id number] Subscriber name: Tiffany Jaimes Primary or Secondary Insurance:Primary Medication: Sucralfate 1 GM/10ML Oral Suspension (Carafate) Reason for Request: Needs a [place] Pharmacy and phone number: [facility] [address] [place] [address].- [place] Rx plan and phone number: Scholrly [phone] Is this a new medication for the patient? Yes What alternative medications does the pharmacy have in stock?: Thank you, Olga Sloan Religion Teacher [facility] 08/25/2024, 12:31 PM * Telephone Encounter - [...] 09/16/2024 1:30 PM EST Telemedicine Psychiatry [place] [facility] [address] [place] [phone] Ilya Stovall MD [address] [place] [phone] 10/01/2024 1:00 PM EST Nurse Only Gynecology/Obstetrics [facility] 132 [place] [address] Gw, Nurse Obgyn Injection 132 [place] [address] 10/21/2024 8:00 AM EDT Office Visit [address] [phone] Angi Resendiz MD 21 [facility] [place] [address] 12/10/2024 3:00 PM EDT Office Visit Cardiology, [facility] [address] [place] [address] Ema Vargas PA-C 400 [facility] [place] [address] 04/22/2025 8:00 AM EDT Office Visit Gynecology/Obstetrics [facility] [address] [place] [address] Demi Jolly PA-C [address] [place] [address] Scheduled Procedures Name Priority Associated Diagnoses Date/Ti me COLONOSCOPY FLEXIBLE PROXIMA L DIAGNOSTIC Recall History of colonic polyps Health Maintenance Due Date Last Done Comments HIV Screening 2013 Hepatitis C Screening 01/23/2016 Hepatitis B Vaccine (1 of 3 - 19+ 3-dose series) 2017 COVID-19 Vaccine (2023- season) [...] filedocumented as of this encounter Care Teams Bisque Grader Relationship Specialty Start Date End Date Óscar Foster III, MD [address] [place] [address] PCP - General Family Medicine 07/15/23 documented as of this encounter
--- OUTSIDE RECORDS SUMMARY | 2024-10-21 09:11 | External Medical Summary | Summary of Care ---
Author Name Unknown Organization [facility] Address [address] [place] [address] Phone [phone] Care Team Providers Care Boat Detailer Name Role Phone Ivania CLEVELAND MD, John E Primary Care Provider [phone] Reason for Visit * Reason Onset Date Comments Medication Refill 08/25/2024 Medication Pre-auth 08/16/2024 Encounter Details Date Type Department Care Team (Late st Contact Info) Description 08/16/2024 Telephone Family Practice [facility] 200 [facility] [place] [address] Óscar Foster III, MD 200 [place] [address] Medication Refill; Medication Pre-auth Allergies Active Allergy [...] mgIndications:Surveillance for Depo-Provera contraception 150 mg IM [id number] 04/14/2024 Active documented as of this encounter [...] Industry 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 Job End Date [employer] at [employer] Not on file Not on file Not on file documented as of this encounter Miscellaneous Notes * Telephone Encounter - Judah Zurita CPhT - 09/02/2024 8:25 AM EST Checked status of prior authorization for Sucralfate 1GM/10ML through CM. Routed high priority to refill call center pharmacist pool due to denial. Denial reason: The requested medication is not FDA-approved for the diagnosis provided. Depending on the diagnosis submitted, there may be additional criteria which must be met for the requested medication to be considered for approval. Per note below denial notice already in provider inbox Thank you, Lalit Zurita ([facility]) Chief Scientific Officer III [facility] ([facility]) 09/02/2024, 8:25 AM * Telephone Encounter - Paula Lujan OSA - 09/01/2024 10:34 AM EST 09/01/24 Rec a DENIAL from Clinical Services Team Pharmacy Services Department for Sucralfate 1GM/10ML or SUSP. Placed DENIAL in Dr. Resendiz's "In Box" today. * Telephone Encounter - Yumiko Durbin advanced clinical specialist - 08/31/2024 1:12 PM EST Submitted information in previous note via CM (Wray: [id number]).. Awaiting payer response. We will follow-up with insurance starting 09/02. Per [facility] request, if no decision is received from insurance by 09/03, we will route back to the [facility] after clarifying with the pharmacy that the claim is still not processing. Thank you, Yumiko Durbin CPhT Chief Scientific Officer II [facility] ([facility]) 08/31/2024,1:12 PM * Telephone Encounter - Karina De Santiago [facility] - 08/30/2024 11:49 AM EST Please resubmit with DX of GERD ICD10 code K21.9, please also include OV note 02/02/24 providing documentation of dx. If denied we can attempt to see if tablets Thank you, Karina De Santiago, PharmD Clinical Pharmacist [facility] ([facility]) 08/30/24 11:49 AM [phone] * Telephone Encounter - Judah Zurita CPhT - 08/30/2024 8:53 AM EST Checked status of prior authorization for Sucralfate 1GM/10ML through CMM. Routed high priority to refill call center pharmacist pool due to denial. Denial reason: The requested medication is not FDA-approved for the diagnosis provided. Thank you, Lalit Zurita ([facility]) Chief Scientific Officer III [facility] ([facility]) 08/30/2024, 8:53 AM * Telephone Encounter - Judah Zurita CPhT - 08/27/2024 9:09 AM EST Checked status of prior authorization for Sucralfate 1GM/10ML suspension through CMM. Awaiting response from insurance. Delivery Truck Driver Heavy will review again. Reminder: Pharmacist requests prior auth be sent back if no response by 08/30. Thank you, Lalit Zurita ([facility]) Chief Scientific Officer III [facility] ([facility]) 08/27/2024, 9:09 AM * Telephone Encounter - Aletha Bernabe OSA - 08/26/2024 6:00 PM EST Submitted information in previous note via CMM (Wray: ).[id number] Awaiting payer response. We will follow-up with insurance starting 08/27. Per [facility] request, if no decision is received from insurance by 08/30, we will route back to the [facility] after clarifying with the pharmacy that the claim is still not processing. SHAHLA Ortiz MEDICATION RELIEF MAN, [facility] [email or web address] [phone] - phone [phone] - fax 08/26/2024,6:00 PM * [facility] - [facility]26/[facility] 10:08 AM EST Please submit [...] upon this and route back to the [facility] pool if no decision is made by the insurance by 08/30, after clarifying with the pharmacy that the claim is still not processing. If PA is denied, please also route back to [facility] pool. Thanks, Brendon Escoto, PharmD Clinical Pharmacist [facility] ([facility]) [phone] 08/26/2024, 10:08 AM * [facility] 08/25/2024 2:21 PM EST Unable to reach patient. LMOVM. Please transfer her back to myself. If I'm not available, transfer to next available [facility]. In OV note, refill only (changed to suspension, patient did not tolerate pills) Please assess how the patient did not tolerate the pills? Will need provider to document that in OVbefore we can submit for PA Thank you, Haleigh Delatorre [facility] Clinical Pharmacist [facility] ([facility]) 08/25/24 2:21 PM [phone] * Telephone Encounter - Eugenia Uribe PHARM Tech - 08/25/2024 2:07 PM EST This is a new PA request. Upon review of this prior authorization request, I verified this request is appropriate. This is prescribed by a department for which [facility] is authorized to review prior [...] note, there is nothing currently pending in [facility] for this request. Please advise how to proceed. Thanks, Eugenia Uribe Chief Scientific Officer III [facility] ([facility]) 08/25/2024,2:07 PM * Telephone Encounter - Olga Sloan PHARM Tech - 08/25/2024 12:31 PM EST Pharmacy calling to inform doctor that the patient's insurance will not pay for this medication without a completed prior authorization. Did confirm this information with the pharmacy. Pt's current insurance information is as follows: Patient name: Tiffany Jaimes ID number: [id number] BIN number: [id number] PCN number: Group number: [id number] Subscriber name: Tiffany Jaimes Primary or Secondary Insurance:Primary Medication: Sucralfate 1 GM/10ML Oral Suspension (Carafate) Reason for Request: Needs a [place] Pharmacy and phone number: [facility] [address] [place] [address]- [place] Rx plan and phone number: Kate [phone] Is this a new medication for the patient? Yes What alternative medications does the pharmacy have in stock?: Thank you, Olga Sloan Parts Room Clerk [facility] 08/25/2024, 12:31 PM * Telephone Encounter - [...] PM EST Telemedicine Psychiatry Teresa Valdivia [address] [place] [phone] Ilya Stovall MD [address] [place] [address] 10/01/2024 1:00 PM EST Nurse Only Gynecology/Obstetrics [facility] 132 [place] [address] Gw, Nurse Obgyn Injection 132 [place] [address] 10/21/2024 8:00 AM EDT Office Visit [address] [phone] Angi Resendiz MD 21 [place] [address] 12/10/2024 3:00 PM EDT Office Visit Cardiology, [facility] 132 [place] [address] Ema Vargas PA-C [address] [place] [address] [place], [place] [phone] 04/22/2025 8:00 AM EDT Office Visit Gynecology/Obstetrics [facility] 132 [facility] [place] [address] Demi Jolly PA-C 132 [place] [address] Scheduled Procedures Name Priority Associated Diagnoses Date/Ti [...] filedocumented as of this encounter Care Teams Boat Detailer Relationship Specialty Start Date End Date Óscar Foster III, MD 200 [facility] [place] [address] PCP - General Family Medicine 07/15/23 documented as of this encounter
--- OUTSIDE RECORDS SUMMARY | 2024-10-21 09:11 | External Medical Summary | Summary of Care ---
Author Name Unknown Organization [facility] Address [address] [place] [address] Phone [phone] Care Team Providers Care Opticianry Teacher Name Role Phone Ivania CLEVELAND MD, John E Primary Care Provider [phone] Reason for Visit * Reason Onset Date Comments Medication Refill 08/25/2024 Medication Pre-auth 08/16/2024 Encounter Details Date Type Department Care Team (Late st Contact Info) Description 08/16/2024 Telephone Family Practice [facility] [address] [facility] [place] [address] Óscar Foster III, MD [address] [place] [address] Medication Refill; Medication Pre-auth Allergies Active Allergy [...] mgIndications:Surveillance for Depo-Provera contraception 150 mg IM [id number] 04/14/2024 Active documented as of this encounter [...] Industry 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 Job End Date First Mate at [employer] Not on file Not on file Not on file documented as of this encounter Miscellaneous Notes * Telephone Encounter - Angela Jefferson, [facility] - 09/02/2024 2:58 PM EST left message on machine to call office When pt calls back let her know that We received a letter stating that Sulcralfate 1GM/10ml or susp was denied. * Telephone Encounter - Dandy Torres formerly [facility] - 09/02/2024 9:41 AM EST No action needed. Denial already sent to provider. Thank You, Dandy Torres, Pharm-D Clinical Pharmacist [facility] Pharmacy Services ([facility]) [phone] 09/02/2024, 9:42 AM * Telephone Encounter - Judah Zurita CPhT - 09/02/2024 8:25 AM EST Checked status of prior authorization for Sucralfate 1GM/10ML through [facility]. Routed high priority to refill call center pharmacist pool due to denial. Denial reason: The requested medication is not FDA-approved for the diagnosis provided. Depending on the diagnosis submitted, there may be additional criteria which must be met for the requested medication to be considered for approval. Per note below denial notice already in provider inbox Thank you, Lalit Zurita (chief design branch) Vending Machine Host/Hostess III [facility] Clin[facility] Pharmacy Services ([facility]) 09/02/2024, 8:25 AM * Telephone Encounter - Paula Lujan OSA - 09/01/2024 10:34 AM EST 09/01/24 Rec a DENIAL from Clinical Services Team Pharmacy Services Department for Sucralfate 1GM/10ML or SUSP. Placed DENIAL in Dr. Resendiz's "In Box" today. * Telephone Encounter - Yumiko Durbin PHARM Tech - 08/31/2024 1:12 PM EST Submitted information in previous note via CMM (Wray: [id number]).. Awaiting payer response. We will follow-up with insurance starting 09/02. Per [facility] request, if no decision is received from insurance by 09/03, we will route back to the [facility] after clarifying with the pharmacy that the claim is still not processing. Thank you, Yumiko Durbin CPhT Vending Machine Host/Hostess II [facility]) 08/31/2024,1:12 PM * [facility] - [facility] 08/30/2024 11:49 AM EST Please resubmit with DX of GERD ICD10 code K21.9, please also include OV note 02/02/24 providing documentation of dx. If denied we can attempt to see if tablets Thank you, Karina De Santiago PharmD Clinical Pharmacist [facility]) 08/30/24 11:49 AM [phone] * Telephone Encounter - Judah Zurita CPhT - 08/30/2024 8:53 AM EST Checked status of prior authorization for Sucralfate 1GM/10ML through CMM. Routed high priority to refill call center pharmacist pool due to denial. Denial reason: The requested medication is not FDA-approved for the diagnosis provided. Thank you, Lalit Zurita ([facility]) Vending Machine Host/Hostess III [facility] 08/30/2024, 8:53 AM * Telephone Encounter - Judah Zurita CPhT - 08/27/2024 9:09 AM EST Checked status of prior authorization for Sucralfate 1GM/10ML suspension through CMM. Awaiting response from insurance. Automotive Parts Advisor will review again. Reminder: Pharmacist requests prior auth be sent back if no response by 08/30. Thank you, Lalit Zurita ([facility]) Vending Machine Host/Hostess III [facility] 08/27/2024, 9:09 AM * Telephone Encounter - Aletha Bernabe OSA - 08/26/2024 6:00 PM EST Submitted information in previous note via CMM (Wray: )..[id number] Awaiting payer response. We will follow-up with insurance starting 08/27. Per [facility] request, if no decision is received from insurance by 08/30, we will route back to the [facility] after clarifying with the pharmacy that the claim is still not processing. SHAHLA Ortiz MEDICATION MANDREL CLEANER, [facility] [email or web address] [phone] - phone [phone] - fax 08/26/2024,6:00 PM * Telephone Encounter - Brendon Escoto [facility] - 08/26/2024 10:08 AM EST Please submit [...] upon this and route back to the [facility] pool if no decision is made by the insurance by 08/30, after clarifying with the pharmacy that the claim is still not processing. If PA is denied, please also route back to [facility]. Thanks, Brendon Escoto PharmD Clinical Pharmacist [facility] Clinical Pharmacy Services ([facility]) [phone] 08/26/2024, 10:08 AM * Telephone Encounter - Haleigh Delatorre [facility] - 08/25/2024 2:21 PM EST Unable to reach patient. LMOVM. Please transfer her back to myself. If I'm not available, transfer to next available [facility]. In OV note, refill only (changed to suspension, patient did not tolerate pills) Please assess how the patient did not tolerate the pills? Will need provider to document that in OVbefore we can submit for PA Thank you, Haleigh Delatorre [facility] Clinical Pharmacist [facility] Clinical Pharmacy Services ([facility]) 08/25/24 2:21 PM [phone] * Telephone Encounter - Eugenia Uribe quality assurance tester - 08/25/2024 2:07 PM EST This is a new [place] request. Upon review of this prior authorization request, I verified this request is appropriate. This is prescribed by a department for which [facility] is authorized to review prior authorizations [...] note, there is nothing currently pending in [facility] for this request. Please advise how to proceed. Thanks, Eugenia Uribe Vending Machine Host/Hostess III [facility] ([facility]) 08/25/2024,2:07 PM * Telephone Encounter - Olga Sloan PHARM Tech - 08/25/2024 12:31 PM EST Pharmacy calling to inform doctor that the patient's insurance will not pay for this medication without a completed prior authorization. Did confirm this information with the pharmacy. Pt's current insurance information is as follows: Patient name: Tiffany Jaimes ID number: [id number] BIN number: [id number] PCN number: Group number: [id number] Subscriber name: Tiffany Jaimes Primary or Secondary Insurance:Primary Medication: Sucralfate 1 GM/10ML Oral Suspension (Carafate) Reason for Request: Needs a [place] Pharmacy and phone number: [facility] [id number] [place] Rx plan and phone number: [place] [phone] Is this a new medication for the patient? Yes What alternative medications does the pharmacy have in stock?: Thank you, Olga Sloan Seafood Specialist [employer] 08/25/2024, 12:31 PM * Telephone Encounter - [...] Telemedicine Psychiatry [place] [address] [place] [id number] Ilya Stovall MD [address] [place] [id number] 10/01/2024 1:00 PM EST Nurse Only Gynecology/Obstetrics [facility] [address] [facility] [place] [address] Gw, Nurse Obgyn Injection [address] [facility] [place] [address] 10/21/2024 8:00 AM EDT Office Visit [address] [address] Angi Resendiz MD [address] [facility] [place] [address] 12/10/2024 3:00 PM EDT Office Visit Cardiology, [facility] [address] [facility] [place] [address] Ema Vargas PA-C [address] [place] [address] [place] [address] 04/22/2025 8:00 AM EDT Office Visit Gynecology/Obstetrics Tracy Hernandez [address] [place] [address] Demi Jolly PA-C [address] [place] [address] Scheduled Procedures Name Priority Associated Diagnoses Date/Ti [...] filedocumented as of this encounter Care Teams Opticianry Teacher Relationship Specialty Start Date End Date Óscar Foster III, MD [address] [place] [address] PCP - General Family Medicine 07/15/23 documented as of this encounter
--- OUTSIDE RECORDS SUMMARY | 2024-10-21 09:11 | External Medical Summary | Summary of Care ---
Author Name Unknown Organization [facility] Address [address] [place] [address] Phone [phone] Care Team Providers Care Maintenance Painter Apprentice Name Role Phone Ivania CLEVELAND MD, John E Primary Care Provider [phone] Reason for Visit * Reason Onset Date Comments Medication Refill 08/25/2024 Medication Pre-auth 08/16/2024 Encounter Details Date Type Department Care Team (Late st Contact Info) Description 08/16/2024 Telephone Family Practice [facility] 200 [facility] [place] [address] Óscar Foster III, MD 200 [place] [address] Medication Refill; Medication Pre-auth Allergies Active Allergy Reactions Criticality Noted Date Comments Food (See Comments) 04/30/2018 Kiwi tongue escalante documented as of this encounter (statuses as of 08/30/2024) Medications Trospium Chloride 20 MG Oral Tablet [...] mgIndications:Surveillance for Depo-Provera contraception 150 mg IM [id number] 04/14/2024 Active documented as of this encounter (statuses as of 08/30/2024) Active Problems Problem Noted Date Diagnosed Date Epigastric pain 04/27/2024 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 04/27/2024 Generalized abdominal pain 04/27/2024 Generalized anxiety disorder 02/02/2024 PTSD (post-traumatic stress disorder) 02/02/2024 Severe episode of recurrent major depressive disorder, without psychotic features 08/13/2021 POTS (postural orthostatic tachycardia syndrome) 08/18/2019 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 documented as of this encounter (statuses as of 08/30/2024) Resolved Problems Problem Noted Date Diagnosed Date Resolved Date 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 02/20/2021 documented as of this encounter (statuses as of 08/30/2024) Immunizations Name Administration Dates Next Due COVID-19 [...] ages 0-17 years) Not on file 05/25/2024 Education Answer Date Recorded What is [...] Industry 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 If denied we can attempt to see if tablets Thank you, Karina De Santiago, PharmD Clinical Pharmacist [facility] 08/30/24 11:49 AM [phone] * Telephone Encounter - Judah Zurita CPhT - 08/30/2024 8:53 AM EST Checked status of prior authorization for Sucralfate 1GM/10ML through CMM. Routed high priority to refill call center pharmacist pool due to denial. Denial reason: The requested medication is not FDA-approved for the diagnosis provided. Thank you, Lalit Zurita ([facility]) Low Pressure Kettle Operator III [facility] 08/30/2024, 8:53 AM * Telephone Encounter - Judah Zurita CPhT - 08/27/2024 9:09 AM EST Checked status of prior authorization for Sucralfate 1GM/10ML suspension through CMM. Awaiting response from insurance. Rubber Attacher will review again. Reminder: Pharmacist requests prior auth be sent back if no response by 08/30. Thank you, Lalit Zurita ([facility]) Low Pressure Kettle Operator III [facility] 08/27/2024, 9:09 AM * Telephone Encounter - Aletha Bernabe OSA - 08/26/2024 6:00 PM EST Submitted information in previous note via CM (Wray: )..[id number] Awaiting payer response. We will follow-up with insurance starting 08/27. Per [facility] request, if no decision is received from insurance by 08/30, we will route back to the [facility] after clarifying with the pharmacy that the claim is still not processing. SHAHLA Ortiz MEDICATION FOOD AND BEVERAGE CHECKER, [facility] [email or web address] [phone] - phone [phone] - fax 08/26/2024,6:00 PM * Telephone Encounter - Brendon Escoto [facility] - 08/26/2024 10:08 AM EST [...] upon this and route back to the [facility] pool if no decision is made by the insurance by 08/30, after clarifying with the pharmacy that the claim is still not processing. If PA is denied, please also route back to [facility] pool. Thanks, Brendon Escoto PharmD Clinical Pharmacist [facility]) [phone] 08/26/2024, 10:08 AM * Telephone Encounter - Haleigh Delatorre [facility] - 08/25/2024 2:21 PM EST Unable to reach patient. LMOVM. Please transfer her back to myself. If I'm not available, transfer to next available [facility]. In OV note, refill only (changed to suspension, patient did not tolerate pills) Please assess how the patient did not tolerate the pills? Will need provider to document that in OVbefore we can submit for PA Thank you, Haleigh Delatorre [facility] Clinical Pharmacist [facility] 08/25/24 2:21 PM [phone] * Telephone Encounter - Eugenia Uribe PHARM Tech - 08/25/2024 2:07 PM EST This is a new [place] request. Upon review of this prior authorization request, I verified this request is appropriate. This is prescribed by a department for which [facility] is authorized to review prior authorizations This [...] note, there is nothing currently pending in Center for this request. Please advise how to proceed. Thanks, Eugenia Uribe Low Pressure Kettle Operator [address] [facility] ([facility]) 08/25/2024,2:07 PM * Telephone Encounter - Olga Sloan PHARM Tech - 08/25/2024 12:31 PM EST Pharmacy calling to inform doctor that the patient's insurance will not pay for this medication without a completed prior authorization. Did confirm this information with the pharmacy. Pt's current insurance information is as follows: Patient name: Tiffany Jaimes ID number: [id number] BIN number: [id number] PCN number: Group number: [id number] Subscriber name: Tiffany Jaimes Primary or Secondary Insurance:Primary Medication: Sucralfate 1 GM/10ML Oral Suspension (Carafate) Reason for Request: Needs a [place] Pharmacy and phone number: [facility] [address] [place] Rx plan and phone number: [place] [phone] Is this a new medication for the patient? Yes What alternative medications does the pharmacy have in stock?: Thank you, Olga Sloan Branch Library Clerk [facility] 08/25/2024, 12:31 PM * Telephone Encounter - IvaniaÓscar ho III, MD - 08/17/2024 7:51 AM ESTSigned [...] Upcoming Encounters Date Type Department Care Team ([facility] st Contact Info) Description 08/31/2024 2:30 PM EST Rehab Services Physical Therapy [address] [address] Orville Lopez, PT [address] [place] [address] 09/16/2024 1:30 PM EST Telemedicine Psychiatry Teresa Valdivia [address] [place] [phone] Ilya Stovall MD [address] [place] [address] 10/01/2024 1:00 PM EST Nurse Only Gynecology/Obstetrics [facility] [address] [place] [address] Gw, Nurse Obgyn Injection 132 [facility] [address] 10/21/2024 8:00 AM EDT Office Visit [address] [phone] Angi Resendiz MD 21 [facility] [place] [address] 12/10/2024 3:00 PM EDT Office Visit Cardiology, [facility] [place] [address] Ema Vargas PA-C [address] [facility] [place] [address] 04/22/2025 8:00 AM EDT Office Visit Gynecology/Obstetrics [facility] [address] [facility] [place] [address] Demi Jolly PA-C 132 [place] [address] Scheduled Procedures Name Priority Associated Diagnoses Date/Ti me COLONOSCOPY FLEXIBLE PROXIMA L DIAGNOSTIC Recall History of colonic polyps Health Maintenance Due Date Last Done Comments HIV Screening 2013 Hepatitis C Screening 01/23/2016 Hepatitis B Vaccine (1 of 3 - 19+ 3-dose series) 2017 COVID-19 Vaccine ( - 2023- season) 2024 12/11/2020, 11/13/2020 Influenza [...] filedocumented as of this encounter Care Teams Maintenance Painter Apprentice Relationship Specialty Start Date End Date Óscar Foster III, MD 200 [facility] [place] [address] PCP - General Family Medicine 07/15/23 documented as of this encounter
--- OUTSIDE RECORDS SUMMARY | 2024-10-21 09:11 | External Medical Summary | Summary of Care ---
Author Name Unknown Organization [facility] Address [address] [place] [address] Phone [phone] Care Team Providers Care Home Mission Worker Name Role Phone Ivania CLEVELAND MD, John E Primary Care Provider [phone] Reason for Visit * Reason Onset Date Comments Medication Refill 08/25/2024 Medication Pre-auth 08/16/2024 Encounter Details Date Type Department Care Team (Late st Contact Info) Description 08/16/2024 Telephone Family Practice [facility] [address] [place] [address] Óscar Foster III, MD [address] [place] [address] Medication Refill; Medication Pre-auth Allergies Active Allergy Reactions Criticality Noted Date Comments Food (See Comments) 04/30/2018 Kiwi tongue escalante documented as of this encounter (statuses as of 08/31/2024) Medications Trospium Chloride 20 MG Oral Tablet [...] mgIndications:Surveillance for Depo-Provera contraception 150 mg IM [id number] 04/14/2024 Active documented as of this encounter (statuses as of 08/31/2024) Active Problems Problem Noted Date Diagnosed Date Epigastric pain 04/27/2024 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 04/27/2024 Generalized abdominal pain 04/27/2024 Generalized anxiety disorder 02/02/2024 PTSD (post-traumatic stress disorder) 02/02/2024 Severe episode of recurrent major depressive disorder, without psychotic features 08/13/2021 POTS (postural orthostatic tachycardia syndrome) 08/18/2019 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 documented as of this encounter (statuses as of 08/31/2024) Resolved Problems Problem Noted Date Diagnosed Date Resolved Date 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 02/20/2021 documented as of this encounter (statuses as of 08/31/2024) Immunizations Name Administration Dates Next Due COVID-19 [...] Industry 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 Awaiting payer response. We will follow-up with insurance starting 09/02. Per [facility] request, if no decision is received from insurance by 09/03, we will route back to the [facility] after clarifying with the pharmacy that the claim is still not processing. Thank you, Yumiko Durbin [facility] Patient Transportation Driver II [facility] ([facility]) 08/31/2024,1:12 PM * Telephone Encounter - Karina De Santiago RPh - 08/30/2024 11:49 AM EST Please resubmit with DX of GERD ICD10 code K21.9, please also include OV note 02/02/24 providing documentation of dx. If denied we can attempt to see if tablets Thank you, Karina De Santiago, PharmOsman Clinical Pharmacist [facility] ([facility]) 08/30/24 11:49 AM [phone] Electronically signed by Karina De Santiago [facility] at 08/30/2024 11:51 AM EST * Telephone Encounter - Judah Zurita CPhT - 08/30/2024 8:53 AM EST Checked status of prior authorization for Sucralfate 1GM/10ML through CMM. Routed high priority to refill call center pharmacist pool due to denial. Denial reason: The requested medication is not FDA-approved for the diagnosis provided. Thank you, [facility]it [facility]) Patient Transportation Driver III [facility] ([facility]) 08/30/2024, 8:53 AM * Telephone Encounter - Jduah Zurita CPhT - 08/27/2024 9:09 AM EST Checked status of prior authorization for Sucralfate 1GM/10ML suspension through CMM. Awaiting response from insurance. Consumer Relations Complaint Clerk will review again. Reminder: Pharmacist requests prior auth be sent back if no response by 08/30. Thank you, Lalit Laurent) Patient Transportation Driver III [facility] ([facility]) 08/27/2024, 9:09 AM * Telephone Encounter - Aletha Bernabe OSA - 08/26/2024 6:00 PM EST Submitted information in previous note via CMM (Wray: )..[id number] Awaiting payer response. We will follow-up with insurance starting 08/27. Per [facility] request, if no decision is received from insurance by 08/30, we will route back to the [facility] after clarifying with the pharmacy that the claim is still not processing. SHAHLA Ortiz MEDICATION MEAT TEAM MEMBER, [facility] [email or web address] [phone] - phone [phone] - fax 08/26/2024,6:00 PM * Telephone Encounter - Brendon Escoto, [facility] - 08/26/2024 10:08 AM EST Please submit [...] upon this and route back to the [facility] pool if no decision is made by the insurance by 08/30, after clarifying with the pharmacy that the claim is still not processing. If PA is denied, please also route back to [facility] pool. Thanks, Berndon Escoto, PharmD Clinical Pharmacist [facility] ([facility]) [phone] 08/26/2024, 10:08 AM * Telephone Encounter - Haleigh Delatorre, [facility] - 08/25/2024 2:21 PM EST Unable to reach patient. LMOVM. Please transfer her back to myself. If I'm not available, transfer to next available [facility]. In OV note, refill only (changed to suspension, patient did not tolerate pills) Please assess how the patient did not tolerate the pills? Will need provider to document that in OVbefore we can submit for PA Thank you, Haleigh Delatorre, [facility] Clinical Pharmacist [facility] ([facility]) 08/25/24 2:21 PM [phone] Electronically signed by Haleigh Delatorre [facility] at 08/25/2024 2:25 PM EST * Telephone Encounter - Eugenia Uribe patient monitor - 08/25/2024 2:07 PM EST This is a new [place] request. Upon review of this prior authorization request, I verified this request is appropriate. This is prescribed by a department for which [facility] is authorized to review prior authorizations [...] note, there is nothing currently pending in [facility] for this request. Please advise how to proceed. Thanks, Eugenia Uribe Patient Transportation Driver III [facility] ([facility]) 08/25/2024,2:07 PM * Telephone Encounter - Olga Sloan PHARM Tech - 08/25/2024 12:31 PM EST Pharmacy calling to inform doctor that the patient's insurance will not pay for this medication without a completed prior authorization. Did confirm this information with the pharmacy. Pt's current insurance information is as follows: Patient name: Tiffany Jaimes ID number: [id number] BIN number: [id number] PCN number: Group number: [id number] Subscriber name: Tiffany Jaimes Primary or Secondary Insurance:Primary Medication: Sucralfate 1 GM/10ML Oral Suspension (Carafate) Reason for Request: Needs a [place] Pharmacy and phone number: [facility] [address] [place] Rx plan and phone number: Kate [phone] Is this a new medication for the patient? Yes What alternative medications does the pharmacy have in stock?: Thank you, Olga Sloan Hand Etcher [facility] 08/25/2024, 12:31 PM * Telephone Encounter - [...] EST Telemedicine Psychiatry Teresa Valdivia [address] [place] [address] Ilya Stovall MD [address] [place] [address] 10/01/2024 1:00 PM EST Nurse Only Gynecology/Obstetrics [facility] [address] [facility] [place] [address] Gw, Nurse Obgyn Injection [address] [facility] [place] [address] 10/21/2024 8:00 AM EDT Office Visit [address] [phone] Angi Resendiz MD [address] [place] [address] 12/10/2024 3:00 PM EDT Office Visit Cardiology, [facility] [address] [facility] [place] [address] Ema Vargas PA-C [address] [place] [address] [place] [address] 04/22/2025 8:00 AM EDT Office Visit Gynecology/Obstetrics [facility] [address] [facility] [place] [address] Demi Jolly PA-C [address] [facility] [place] [address] Scheduled Procedures Name Priority Associated Diagnoses Date/Ti [...] filedocumented as of this encounter Care Teams Home Mission Worker Relationship Specialty Start Date End Date Óscar Foster III, MD [address] [place] [address] PCP - General Family Medicine 07/15/23 documented as of this encounter
--- OUTSIDE RECORDS SUMMARY | 2024-10-21 09:11 | External Medical Summary | Summary of Care ---
Author Name Unknown Organization [facility] Address [address] [place] [address] Phone [phone] Care Team Providers Care Diesel Locomotive Engineer Name Role Phone Ivania CLEVELAND MD, John E Primary Care Provider [phone] Reason for Visit * Reason Onset Date Comments Medication Refill 08/25/2024 Medication Pre-auth 08/16/2024 Encounter Details Date Type Department Care Team (Late st Contact Info) Description 08/16/2024 Telephone Family Practice [facility] [address] [place] [address] Óscar Foster III, MD [address] [facility] [place] [address] Medication Refill; Medication Pre-auth Allergies Active Allergy [...] mgIndications:Surveillance for Depo-Provera contraception 150 mg IM [id number] 04/14/2024 Active documented as of this encounter [...] Industry 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 Job End Date 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 Routed high priority to refill call center pharmacist pool due to denial. Denial reason: The requested medication is not FDA-approved for the diagnosis provided. Thank you, Lalit Zurita ([facility]) Household Worker III [facility] ([facility]) 08/30/2024, 8:53 AM * Telephone Encounter - Judah Zurita CPhT - 08/27/2024 9:09 AM EST Checked status of prior authorization for Sucralfate 1GM/10ML suspension through CMM. Awaiting response from insurance. Public Health Internship will review again. Reminder: Pharmacist requests prior auth be sent back if no response by 08/30. Thank you, Lalit Zurita ([facility]) Household Worker III [facility] ([facility]) 08/27/2024, 9:09 AM * Telephone Encounter - Aletha Bernabe OSA - 08/26/2024 6:00 PM EST Submitted information in previous note via CM (Wray: )..[id number] Awaiting payer response. We will follow-up with insurance starting 08/27. Per [facility] request, if no decision is received from insurance by 08/30, we will route back to the [facility] after clarifying with the pharmacy that the claim is still not processing. SHAHLA Ortiz MEDICATION HEALTH EDUCATION AIDE, [facility] [email or web address] [phone] - phone [phone] - fax 08/26/2024,6:00 PM * Telephone Encounter - Brendon Escoto [facility] - 08/26/2024 10:08 AM EST Please submit [...] back to the [facility] pool if no decision is made by the insurance by 08/30, after clarifying with the pharmacy that the claim is still not processing. If PA is denied, please also route back to [facility] pool. Thanks, Brendon Escoto PharmD Clinical Pharmacist [facility] ([facility]) [phone] 08/26/2024, 10:08 AM * Telephone Encounter - Haleigh Delatorre [facility] - 08/25/2024 2:21 PM EST Unable to reach patient. LMOVM. Please transfer her back to myself. If I'm not available, transfer to next available [facility]. In OV note, refill only (changed to suspension, patient did not tolerate pills) Please assess how the patient did not tolerate the pills? Will need provider to document that in OVbefore we can submit for PA Thank you, Haleigh Delatorre [facility] Clinical Pharmacist [facility] ([facility]) 08/25/24 2:21 PM [phone] * Telephone Encounter - Eugenia Uribe PHARM Tech - 08/25/2024 2:07 PM EST This is a new [place] request. Upon review of this prior authorization request, I verified this request is appropriate. This is prescribed by a department for which [facility] is authorized to review prior authorizations This [...] advise how to proceed. Thanks, Eugenia Uribe Household Worker III [facility] Clinical Pharmacy Services ([facility]) 08/25/2024,2:07 PM * Telephone Encounter - Olga Sloan PHARM Tech - 08/25/2024 12:31 PM EST Pharmacy calling to inform doctor that the patient's insurance will not pay for this medication without a completed prior authorization. Did confirm this information with the pharmacy. Pt's current insurance information is as follows: Patient name: Tiffany Jaimes ID number: [id number] BIN number: [id number] PCN number: Group number: [id number] Subscriber name: Tiffany Jaimes Primary or Secondary Insurance:Primary Medication: Sucralfate 1 GM/10ML Oral Suspension (Carafate) Reason for Request: Needs a [place] Pharmacy and phone number: [facility] [address] [place] Rx plan and phone number: [place] [phone] Is this a new medication for the patient? Yes What alternative medications does the pharmacy have in stock?: Thank you, Olga Sloan Compass Operator [facility] 08/25/2024, 12:31 PM * Telephone [...] Upcoming Encounters Date Type Department Care Team ([facility] st Contact Info) Description 08/31/2024 2:30 PM EST Rehab Services Physical Therapy [address] [phone] Orville Lopez, PT [address] [place] [address] 09/16/2024 1:30 PM EST Telemedicine Psychiatry Teresa Valdivia 9 [place] [phone] Ilya Stovall MD 9 [place] [address] 10/01/2024 1:00 PM EST Nurse Only Gynecology/Obstetrics [facility] [address] [place] [address] Gw, Nurse Obgyn Injection 132 [facility] [place] [address] 10/21/2024 8:00 AM EDT Office Visit [address] [phone] Angi Resendiz MD 21 [facility] [place] [address] 12/10/2024 3:00 PM EDT Office Visit Cardiology, [facility] [address] Ema Vargas PA-C [address] [place] [address] 04/22/2025 8:00 AM EDT Office Visit Gynecology/Obstetrics [facility] [address] [facility] [place] [address] Demi Jolly PA-C 132 [place] [address] Scheduled Procedures Name Priority Associated Diagnoses Date/Ti [...] filedocumented as of this encounter Care Teams Diesel Locomotive Engineer Relationship Specialty Start Date End Date Óscar Foster III, MD [address] [place] [address] PCP - General Family Medicine 07/15/23 documented as of this encounter
--- OUTSIDE RECORDS SUMMARY | 2024-10-21 09:11 | External Medical Summary | Summary of Care ---
Author Name Unknown Organization [facility] Address [address] [place] [address] Phone [phone] Care Team Providers Care Parole Hearing Officer Name Role Phone Ivania CLEVELAND MD, John E Primary Care Provider [phone] Reason for Visit * Reason Onset Date Comments Medication Refill 08/25/2024 Medication Pre-auth 08/16/2024 Encounter Details Date Type Department Care Team (Late st Contact Info) Description 08/16/2024 Telephone Family Practice [facility] [address] [facility] [place] [address] Óscar Foster III, MD [address] [facility] [place] [address] Medication Refill; Medication Pre-auth Allergies Active Allergy [...] mgIndications:Surveillance for Depo-Provera contraception 150 mg IM [id number] 04/14/2024 Active documented as of this encounter [...] Industry 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 Job End Date 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 Routed high priority to refill call center pharmacist pool due to denial. Denial reason: The requested medication is not FDA-approved for the diagnosis provided. Thank you, Lalit Zurita ([facility]) Internal Communications Manager III [facility] ([facility]) 08/30/2024, 8:53 AM * Telephone Encounter - Judah Zurita CPhT - 08/27/2024 9:09 AM EST Checked status of prior authorization for Sucralfate 1GM/10ML suspension through CMM. Awaiting response from insurance. Denture Packer will review again. Reminder: Pharmacist requests prior auth be sent back if no response by 08/30. Thank you, Lalit Zurita ([facility]) Internal Communications Manager III [facility] ([facility]) 08/27/2024, 9:09 AM * Telephone Encounter - Aletha Bernabe OSA - 08/26/2024 6:00 PM EST Submitted information in previous note via CM (Wray: )..[id number] Awaiting payer response. We will follow-up with insurance starting 08/27. Per [facility] request, if no decision is received from insurance by 08/30, we will route back to the [facility] after clarifying with the pharmacy that the claim is still not processing. SHAHLA Ortiz MEDICATION BENCH TECHNICIAN, [facility] [email or web address] [phone] - phone [phone] - fax 08/26/2024,6:00 PM * Telephone Encounter - Brendon Escoto [facility] - 08/26/2024 10:08 AM EST Please submit [...] upon this and route back to the [facility] pool if no decision is made by the insurance by 08/30, after clarifying with the pharmacy that the claim is still not processing. If PA is denied, please also route back to [facility] pool. Thanks, Brendon Escoto PharmD Clinical Pharmacist [facility] ([facility]) [phone] 08/26/2024, 10:08 AM * Telephone Encounter - Haleigh Delatorre [facility] - 08/25/2024 2:21 PM EST Unable to reach patient. LMOVM. Please transfer her back to myself. If I'm not available, transfer to next available [facility]. In OV note, refill only (changed to suspension, patient did not tolerate pills) Please assess how the patient did not tolerate the pills? Will need provider to document that in OVbefore we can submit for PA Thank you, Haleigh Delatorre [facility] Clinical Pharmacist [facility] ([facility]) 08/25/24 2:21 PM [phone] * Telephone Encounter - Eugenia Uribe PHARM Tech - 08/25/2024 2:07 PM EST This is a new [place] request. Upon review of this prior authorization request, I verified this request is appropriate. This is prescribed by a department for which [facility] is authorized to review prior authorizations [...] advise how to proceed. Thanks, Eugenia Uribe Internal Communications Manager III [facility] Clinical Pharmacy Services ([facility]) 08/25/2024,2:07 PM * Telephone Encounter - Olga Sloan PHARM Tech - 08/25/2024 12:31 PM EST Pharmacy calling to inform doctor that the patient's insurance will not pay for this medication without a completed prior authorization. Did confirm this information with the pharmacy. Pt's current insurance information is as follows: Patient name: Tiffany Jaimes ID number: [id number] BIN number: [id number] PCN number: Group number: [id number] Subscriber name: Tiffany Jaimes Primary or Secondary Insurance:Primary Medication: Sucralfate 1 GM/10ML Oral Suspension (Carafate) Reason for Request: Needs a [place] Pharmacy and phone number: [facility] [address] [place] Rx plan and phone number: [place] [phone] Is this a new medication for the patient? Yes What alternative medications does the pharmacy have in stock?: Thank you, Olga Sloan Viscose Cellar Worker [facility] 08/25/2024, 12:31 PM * Telephone [...] ([facility] st Contact Info) Description 08/31/2024 2:30 PM EST Rehab Services Physical Therapy [address] [phone] Orville Lopez, PT [address] [place] [address] 09/16/2024 1:30 PM EST Telemedicine Psychiatry Teresa Valdivia 9 [place] [phone] Ilya Stovall MD [address] [place] [address] 10/01/2024 1:00 PM EST Nurse Only Gynecology/Obstetrics [facility] [address] [facility] [place] [address] Gw, Nurse Obgyn Injection 132 [facility] [place] [address] 10/21/2024 8:00 AM EDT Office Visit [address] [phone] Angi Resendiz MD 21 [place] [address] 12/10/2024 3:00 PM EDT Office Visit Cardiology, [facility] [address] [facility] [place] [address] Ema Vargas PA-C 400 [facility] [place] [address] 04/22/2025 8:00 AM EDT Office Visit Gynecology/Obstetrics [facility] [address] [facility] [place] [address] Demi Jolly PA-C 132 [place] [address] Scheduled Procedures Name Priority Associated Diagnoses Date/Ti [...] filedocumented as of this encounter Care Teams Parole Hearing Officer Relationship Specialty Start Date End Date Óscar Foster III, MD 200 [facility] [place] [address] PCP - General Family Medicine 07/15/23 documented as of this encounter
--- OUTSIDE RECORDS SUMMARY | 2024-10-21 09:11 | External Medical Summary | Summary of Care ---
Author Name Unknown Organization [facility] Address [address] [place] [address] Phone [phone] Care Team Providers Care Fiction And Nonfiction Prose Writer Name Role Phone Ivania CLEVELAND MD, John E Primary Care Provider [phone] Reason for Visit * Reason Onset Date Comments Medication Refill 08/25/2024 Medication Pre-auth 08/16/2024 Encounter Details Date Type Department Care Team (Late st Contact Info) Description 08/16/2024 Telephone Family Practice [facility] [address] [facility] [place] [address] Óscar Foster III, MD 200 [facility] [place] [address] Medication Refill; Medication Pre-auth Allergies Active Allergy Reactions Criticality Noted Date Comments Food (See Comments) 04/30/2018 Kiwi tongue escalante documented as of this encounter (statuses as of 08/26/2024) Medications Trospium Chloride 20 MG Oral Tablet [...] mgIndications:Surveillance for Depo-Provera contraception 150 mg IM [id number] 04/14/2024 Active documented as of this encounter (statuses as of 08/26/2024) Active Problems Problem Noted Date Diagnosed Date Epigastric pain 04/27/2024 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 04/27/2024 Generalized abdominal pain 04/27/2024 Generalized anxiety disorder 02/02/2024 PTSD (post-traumatic stress disorder) 02/02/2024 Severe episode of recurrent major depressive disorder, without psychotic features 08/13/2021 POTS (postural orthostatic tachycardia syndrome) 08/18/2019 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 documented as of this encounter (statuses as of 08/26/2024) Resolved Problems Problem Noted Date Diagnosed Date Resolved Date 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 02/20/2021 documented as of this encounter (statuses as of 08/26/2024) Immunizations Name Administration Dates Next Due COVID-19 [...] Industry 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 We will follow-up with insurance starting 08/27. Per [facility] request, if no decision is received from insurance by 08/30, we will route back to the [facility] after clarifying with the pharmacy that the claim is still not processing. SHAHLA Ortiz MEDICATION MATCHING MACHINE OPERATOR, [facility] [email or web address] [phone] - phone [phone] - fax 08/26/2024,6:00 PM * Telephone Encounter - Brendon Escoto [facility] - 08/26/2024 10:08 AM EST Please [...] upon this and route back to the [facility] pool if no decision is made by the insurance by 08/30, after clarifying with the pharmacy that the claim is still not processing. If PA is denied, please also route back to [facility] pool. Thanks, Brendon Escoto, Betty Clinical Pharmacist [facility] ([facility]) [phone] 08/26/2024, 10:08 AM * Telephone Encounter - Haleigh Delatorre [facility] - 08/25/2024 2:21 PM EST Unable to reach patient. LMOVM. Please transfer her back to myself. If I'm not available, transfer to next available [facility]. In OV note, refill only (changed to suspension, patient did not tolerate pills) Please assess how the patient did not tolerate the pills? Will need provider to document that in OVbefore we can submit for PA Thank you, Haleigh Delatorre [facility] Clinical Pharmacist [facility] ([facility]) 08/25/24 2:21 PM [phone] * Telephone Encounter - Eugenia Uribe PHARM Tech - 08/25/2024 2:07 PM EST This is a new [place] request. Upon review of this prior authorization request, I verified this request is appropriate. This is prescribed by a department for which [facility] is authorized to review prior authorizations This [...] advise how to proceed. Thanks, Eugenia Uribe Wet Pan Mixer [facility] Clinical Pharmacy Services ([facility]) 08/25/2024,2:07 PM * Telephone Encounter - Olga Sloan PHARM Tech - 08/25/2024 12:31 PM EST Pharmacy calling to inform doctor that the patient's insurance will not pay for this medication without a completed prior authorization. Did confirm this information with the pharmacy. Pt's current insurance information is as follows: Patient name: Tiffany Jaimes ID number: [id number] BIN number: [id number] PCN number: Group number: [id number] Subscriber name: Tiffany Jaimes Primary or Secondary Insurance:Primary Medication: Sucralfate 1 GM/10ML Oral Suspension (Carafate) Reason for Request: Needs a [place] Pharmacy and phone number: [facility] [place] Rx plan and phone number: [place] [phone] Is this a new medication for the patient? Yes What alternative medications does the pharmacy have in stock?: Thank you, Olga Sloan Hoist Operator [facility] Telepharmacy 08/25/2024, 12:31 PM * Telephone Encounter [...] Care Team (Late st Contact Info) Description 08/31/2024 2:30 PM EST Rehab Services Physical Therapy [address] [phone] Orville Lopez, [address] [address] 09/16/2024 1:30 PM EST Telemedicine Psychiatry [place] [address] [place] [phone] Ilya Stovall MD [address] [place] [address] 10/01/2024 1:00 PM EST Nurse Only Gynecology/Obstetrics [facility] [address] [place] [address] Gw, Nurse Obgyn Injection [address] [place] [address] 10/21/2024 8:00 AM EDT Office Visit [address] [phone] Angi Resendiz MD 21 [facility] [place] [address] 12/10/2024 3:00 PM EDT Office Visit Cardiology, [facility] [address] [place] [address] Ema Vargas PA-C [address] [place] [address] [place], [place] [id number] 04/22/2025 8:00 AM EDT Office Visit Gynecology/Obstetrics [facility] 132 [facility] [place] [address] Demi Jolly PA-C 132 [place] [address] Scheduled Procedures Name Priority Associated Diagnoses Date/Ti [...] filedocumented as of this encounter Care Teams Fiction And Nonfiction Prose Writer Relationship Specialty Start Date End Date Óscar Foster III, MD [address] [place] [address] PCP - General Family Medicine 07/15/23 documented as of this encounter
--- OUTSIDE RECORDS SUMMARY | 2024-10-21 09:11 | External Medical Summary | Summary of Care ---
Author Name Unknown Organization [facility] Address [address] [place] [address] Phone [phone] Care Team Providers Care Teacher'S Assistant Name Role Phone Ivania CLEVELAND MD, John E Primary Care Provider [phone] Reason for Visit * Reason Onset Date Comments Medication Refill 08/25/2024 Medication Pre-auth 08/16/2024 Encounter Details Date Type Department Care Team (Late st Contact Info) Description 08/16/2024 Telephone Family Practice [facility] 200 [place] [address] Óscar Foster III, MD 200 [facility] [place] [address] Medication Refill; Medication Pre-auth Allergies Active Allergy Reactions Criticality Noted Date Comments Food (See Comments) 04/30/2018 Kiwi tongue escalante documented as of this encounter (statuses as of 08/27/2024) Medications Trospium Chloride 20 MG Oral Tablet [...] mgIndications:Surveillance for Depo-Provera contraception 150 mg IM [id number] 04/14/2024 Active documented as of this encounter (statuses as of 08/27/2024) Active Problems Problem Noted Date Diagnosed Date Epigastric pain 04/27/2024 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 04/27/2024 Generalized abdominal pain 04/27/2024 Generalized anxiety disorder 02/02/2024 PTSD (post-traumatic stress disorder) 02/02/2024 Severe episode of recurrent major depressive disorder, without psychotic features 08/13/2021 POTS (postural orthostatic tachycardia syndrome) 08/18/2019 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 Awaiting response from insurance. Patient Insurance Clerk will review again. Reminder: Pharmacist requests prior auth be sent back if no response by 08/30. Thank you, Lalit Zurita (quarter section ironer) Buff Wheel Fabricator III [facility] 08/27/2024, 9:09 AM * Telephone Encounter - Aletha Bernabe OSA - 08/26/2024 6:00 PM EST Submitted information in previous note via CMM (Wray: )..[id number] Awaiting payer response. We will follow-up with insurance starting 08/27. Per [facility] request, if no decision is received from insurance by 08/30, we will route back to the [facility] after clarifying with the pharmacy that the claim is still not processing. SHAHLA Ortiz MEDICATION EXECUTIVE OFFICER, [facility] [email or web address] [phone] - phone [phone] - fax 08/26/2024,6:00 PM * Telephone Encounter - Brendon Escoto, [facility] - 08/26/2024 10:08 AM EST Please [...] upon this and route back to the [facility] pool if no decision is made by the insurance by 08/30, after clarifying with the pharmacy that the claim is still not processing. If PA is denied, please also route back to [facility] pool. Thanks, Brendon Escoto, PharmD Clinical Pharmacist [facility] ([facility]) [phone] 08/26/2024, 10:08 AM * Telephone Encounter - Haleigh Delatorre, [facility] - 08/25/2024 2:21 PM EST Unable to reach patient. LMOVM. Please transfer her back to myself. If I'm not available, transfer to next available [facility]. In OV note, refill only (changed to suspension, patient did not tolerate pills) Please assess how the patient did not tolerate the pills? Will need provider to document that in OVbefore we can submit for PA Thank you, Haleigh Delatorre, [facility] Clinical Pharmacist [facility] ([facility]) 08/25/24 2:21 PM [phone] * Telephone Encounter - Eugenia Uribe PHARM Tech - 08/25/2024 2:07 PM EST This is a new PA request. Upon review of this prior authorization request, I verified this request is appropriate. This is prescribed by a department for which [facility] is authorized to review prior [...] note, there is nothing currently pending in [facility] for this request. Please advise how to proceed. Thanks, Eugenia Uribe Buff Wheel Fabricator III [facility] ([facility]) 08/25/2024,2:07 PM * Telephone Encounter - Olga Sloan PHARM Tech - 08/25/2024 12:31 PM EST Pharmacy calling to inform doctor that the patient's insurance will not pay for this medication without a completed prior authorization. Did confirm this information with the pharmacy. Pt's current insurance information is as follows: Patient name: Tiffany Jaimes ID number: [id number] BIN number: [id number] N number: Group number: [id number] Subscriber name: Tiffany Jaimes Primary or Secondary Insurance:Primary Medication: Sucralfate 1 GM/10ML Oral Suspension (Carafate) Reason for Request: Needs a [place] Pharmacy and phone number: [facility] [phone] [place] Rx plan and phone number: [place] [phone] Is this a new medication for the patient? Yes What alternative medications does the pharmacy have in stock?: Thank you, Olga Sloan Block Breaker [facility] 08/25/2024, 12:31 PM * Telephone Encounter - [...] 2:30 PM EST Rehab Services Physical Therapy [facility] [address] [facility] [address] [place] [phone] Orville Lopez, PT [address] [place] [address] 09/16/2024 1:30 PM EST Telemedicine Psychiatry [place] [address] [place] [address] Ilya Stovall MD [address] [place] [address] 10/01/2024 1:00 PM EST Nurse Only Gynecology/Obstetrics [facility] 132 [facility] [place] [address] Gw, Nurse Obgyn Injection [address] [facility] [place] [address] 10/21/2024 8:00 AM EDT Office Visit Family [facility] [address] [place] [phone] Angi Resendiz MD 21 [facility] [place] [address] 12/10/2024 3:00 PM EDT Office Visit Cardiology, [facility] [address] [facility] [place] [address] Ema Vargas PA-C [address] [place] [address] [place] [address] 04/22/2025 8:00 AM EDT Office Visit Gynecology/Obstetrics [facility] 132 [facility] [place] [address] Demi Jolly PA-C [address] [place] [address] Scheduled Procedures Name Priority Associated Diagnoses Date/Ti [...] filedocumented as of this encounter Care Teams Teacher'S Assistant Relationship Specialty Start Date End Date Óscar Foster III, MD [address] [place] [address] PCP - General Family Medicine 07/15/23 documented as of this encounter
--- OUTSIDE RECORDS SUMMARY | 2024-10-21 09:11 | External Medical Summary | Summary of Care ---
Author Name Unknown Organization [facility] Address [address] [place] [address] Phone [phone] Care Team Providers Care Brim Setter Name Role Phone Ivania CLEVELAND MD, John E Primary Care Provider [phone] Reason for Visit * Reason Onset Date Comments Medication Refill 08/25/2024 Medication Pre-auth 08/16/2024 Encounter Details Date Type Department Care Team (Late st Contact Info) Description 08/16/2024 Telephone Family Practice [facility] 200 [facility] [place] [address] Óscar Foster III, MD 200 [place] [address] Medication Refill; Medication Pre-auth Allergies Active Allergy [...] mgIndications:Surveillance for Depo-Provera contraception 150 mg IM [id number] 04/14/2024 Active documented as of this encounter [...] Industry 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 Job End Date 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 Denial already sent to provider. Thank You, Dandy Torres, Pharm-D Clinical Pharmacist [facility] ([facility]) [phone] 09/02/2024, 9:42 AM * Telephone Encounter - [...] in provider inbox Thank you, Lalit Zurita ([facility]) Ocean Fishing Guide III [facility] ([facility]) 09/02/2024, 8:25 AM * Telephone Encounter - Paula Lujan OSA - 09/01/2024 10:34 AM EST 09/01/24 Rec a DENIAL from Clinical Services Team Pharmacy Services Department for Sucralfate 1GM/10ML or SUSP. Placed DENIAL in Dr. Resendiz's "In Box" today. * Telephone Encounter - Yumiko Durbin PHARM Tech - 08/31/2024 1:12 PM EST Submitted information in previous note via CMM (Wray: [id number]).. Awaiting payer response. We will follow-up with insurance starting 09/02. Per [facility] request, if no decision is received from insurance by 09/03, we will route back to the [facility] after clarifying with the pharmacy that the claim is still not processing. Thank you, Yumiko Durbin CPhT Ocean Fishing Guide II [facility] ([facility]) 08/31/2024,1:12 PM * Telephone Encounter - Karina De Santiago [facility] - 08/30/2024 11:49 AM EST Please resubmit with DX of GERD ICD10 code K21.9, please also include OV note 02/02/24 providing documentation of dx. If denied we can attempt to see if tablets Thank you, Karina De Santiago PharmD Clinical Pharmacist [facility] ([facility]) 08/30/24 11:49 AM [phone] * Telephone Encounter - Judah Zurita CPhT - 08/30/2024 8:53 AM EST Checked status of prior authorization for Sucralfate 1GM/10ML through CMM. Routed high priority to refill call center pharmacist pool due to denial. Denial reason: The requested medication is not FDA-approved for the diagnosis provided. Thank you, Lalit Zurita ([facility]) Ocean Fishing Guide III [facility] ([facility]) 08/30/2024, 8:53 AM * Telephone Encounter - Judah Zurita CPhT - 08/27/2024 9:09 AM EST Checked status of prior authorization for Sucralfate 1GM/10ML suspension through CMM. Awaiting response from insurance. Investor Relations Coordinator will review again. Reminder: Pharmacist requests prior auth be sent back if no response by 08/30. Thank you, Lalit Zurita ([facility]) Ocean Fishing Guide III [facility] ([facility]) 08/27/2024, 9:09 AM * Telephone Encounter - Aletha Bernabe OSA - 08/26/2024 6:00 PM EST Submitted information in previous note via CMM (Wray: )..[id number] Awaiting payer response. We will follow-up with insurance starting 08/27. Per [facility] request, if no decision is received from insurance by 08/30, we will route back to the [facility] after clarifying with the pharmacy that the claim is still not processing. SHAHLA Ortiz MEDICATION RETIREMENT ADMINISTRATOR, [facility] [email or web address] [phone] - phone [phone] - fax 08/26/2024,6:00 PM * Telephone Encounter - Brendon Escoto, [facility] - 08/26/2024 10:08 AM EST [...] upon this and route back to the [facility] pool if no decision is made by the insurance by 08/30, after clarifying with the pharmacy that the claim is still not processing. If PA is denied, please also route back to [facility] pool. Thanks, Brendon Escoto, PharmD Clinical Pharmacist [facility] ([facility]) [phone] 08/26/2024, 10:08 AM * Telephone Encounter - Haleigh Delatorre [facility] - 08/25/2024 2:21 PM EST Unable to reach patient. GAGAN. Please transfer her back to myself. If I'm not available, transfer to next available [facility]. In OV note, refill only (changed to suspension, patient did not tolerate pills) Please assess how the patient did not tolerate the pills? Will need provider to document that in OVbefore we can submit for PA Thank you, Haleigh Delatorre, [facility] Clinical Pharmacist [facility] ([facility]) 08/25/24 2:21 PM [phone] * Telephone Encounter - Eugenia Uribe kitchen and counter worker - 08/25/2024 2:07 PM EST This is a new [place] request. Upon review of this prior authorization request, I verified this request is appropriate. This is prescribed by a department for which [facility] is authorized to review prior authorizations This [...] note, there is nothing currently pending in [facility] for this request. Please advise how to proceed. Thanks, Eugenia Uribe Ocean Fishing Guide III [facility] ([facility]) 08/25/2024,2:07 PM * Telephone Encounter - Olga Sloan PHARM Tech - 08/25/2024 12:31 PM EST Pharmacy calling to inform doctor that the patient's insurance will not pay for this medication without a completed prior authorization. Did confirm this information with the pharmacy. Pt's current insurance information is as follows: Patient name: Tiffany Jaimes ID number: [id number] BIN number: [id number] PCN number: Group number: [id number] Subscriber name: Tiffany Jaimes Primary or Secondary Insurance:Primary Medication: Sucralfate 1 GM/10ML Oral Suspension (Carafate) Reason for Request: Needs a [place] Pharmacy and phone number: [facility] [address] [place] [address] [place] Rx plan and phone number: [facility] [phone] Is this a new medication for the patient? Yes What alternative medications does the pharmacy have in stock?: Thank you, Olga Sloan Tilting Head Band Sawyer [facility] 08/25/2024, 12:31 PM * Telephone Encounter - [...] [place] [address] Ilya Stovall MD [address] [place] [address] 10/01/2024 1:00 PM EST Nurse Only Gynecology/Obstetrics [facility] [address] [facility] [place] [address] Gw, Nurse Obgyn Injection [address] [facility] [place] [address] 10/21/2024 8:00 AM EDT Office Visit [address] [phone] Angi Resendiz MD 21 [place] [address] 12/10/2024 3:00 PM EDT Office Visit Cardiology, [facility] [address] [facility] [place] [address] Ema Vargas PA-C [address] [facility] [place] [id number] 04/22/2025 8:00 AM EDT Office Visit Gynecology/Obstetrics [facility] [address] [facility] [place] [address] Demi Jolly PA-C 132 [facility] [place] [address] Scheduled Procedures Name Priority Associated Diagnoses Date/Ti me COLONOSCOPY FLEXIBLE PROXIMA L DIAGNOSTIC Recall History of colonic polyps Health Maintenance Due Date Last Done Comments HIV Screening 2013 Hepatitis C Screening 01/23/2016 Hepatitis B Vaccine (1 of 3 - 19+ 3-dose series) 2017 COVID-19 Vaccine (3 - season) 2024 12/11/2020, 11/13/2020 Influenza Vaccine (FLU [...] filedocumented as of this encounter Care Teams Brim Setter Relationship Specialty Start Date End Date Óscar Foster III, MD 200 [facility] [place] [address] PCP - General Family Medicine 07/15/23 documented as of this encounter
--- OUTSIDE RECORDS SUMMARY | 2024-10-21 09:11 | External Medical Summary | Summary of Care ---
Author Name Unknown Organization [facility] Address [address] [place] [address] Phone [phone] Care Team Providers Care Solar Energy Advisor Name Role Phone Ivania CLEVELAND MD, John E Primary Care Provider [phone] Reason for Visit * Reason Onset Date Comments Medication Refill 08/25/2024 Medication Pre-auth 08/16/2024 Encounter Details Date Type Department Care Team (Late st Contact Info) Description 08/16/2024 Telephone Family Practice [facility] [address] [facility] 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 Placed DENIAL in Dr. Resendiz's "In Box" today. * Telephone Encounter - Yumiko Durbin patient admitting representative - 08/31/2024 1:12 PM EST Submitted information in previous note via CM (Wray: [id number]).. Awaiting payer response. We will follow-up with insurance starting 09/02. Per [facility] request, if no decision is received from insurance by 09/03, we will route back to the [facility] after clarifying with the pharmacy that the claim is still not processing. Thank you, Yumiko Durbin CPhT Customer Relationship Specialist II [facility] ([facility]) 08/31/2024,1:12 PM * Telephone Encounter - Karina De Santiago [facility] - 08/30/2024 11:49 AM EST Please resubmit with DX of GERD ICD10 code K21.9, please also include OV note 02/02/24 providing documentation of dx. If denied we can attempt to see if tablets Thank you, Karina De Santiago, PharmD Clinical Pharmacist [facility] ([facility]) 08/30/24 11:49 AM [phone] * Telephone Encounter - Judah Zurita CPhT - 08/30/2024 8:53 AM EST Checked status of prior authorization for Sucralfate 1GM/10ML through CMM. Routed high priority to refill call center pharmacist pool due to denial. Denial reason: The requested medication is not FDA-approved for the diagnosis provided. Thank you, Lalit Zurita ([facility]) Customer Relationship Specialist III [facility] ([facility]) 08/30/2024, 8:53 AM * Telephone Encounter - Judah Zurita CPhT - 08/27/2024 9:09 AM EST Checked status of prior authorization for Sucralfate 1GM/10ML suspension through CMM. Awaiting response from insurance. Window Installation Subcontractor will review again. Reminder: Pharmacist requests prior auth be sent back if no response by 08/30. Thank you, Lalit Zurita ([facility]) Customer Relationship Specialist III [facility] ([facility]) 08/27/2024, 9:09 AM * Telephone Encounter - Aletha Bernabe OSA - 08/26/2024 6:00 PM EST Submitted information in previous note via CMM (Wray: )..[id number] Awaiting payer response. We will follow-up with insurance starting 08/27. Per [facility] request, if no decision is received from insurance by 08/30, we will route back to the [facility] after clarifying with the pharmacy that the claim is still not processing. SHAHLA Ortiz MEDICATION PACKING ROOM WORKER, [facility] [email or web address] [phone] - phone [phone] - fax 08/26/2024,6:00 PM * [facility] 10:08 AM [...] upon this and route back to the [facility] pool if no decision is made by the insurance by 08/30, after clarifying with the pharmacy that the claim is still not processing. If PA is denied, please also route back to [facility] pool. Thanks, Brendon Escoto, PharmD Clinical Pharmacist [facility] ([facility]) [phone] 08/26/2024, 10:08 AM * [facility] En[facility] 08/25/2024 2:21 PM EST Unable to reach patient. LMOVM. Please transfer her back to myself. If I'm not available, transfer to next available [facility]. In OV note, refill only (changed to suspension, patient did not tolerate pills) Please assess how the patient did not tolerate the pills? Will need provider to document that in OVbefore we can submit for PA Thank you, Haleigh Delatorre [facility] Clinical Pharmacist [facility] ([facility]) 08/25/24 2:21 PM [phone] * Telephone Encounter - Eugenia Uribe PHARM [...] note, there is nothing currently pending in [facility] for this request. Please advise how to proceed. Thanks, Eugenia Uribe Customer Relationship Specialist III [facility] ([facility]) 08/25/2024,2:07 PM * Telephone Encounter - Olga Sloan PHARM Tech - 08/25/2024 12:31 PM EST Pharmacy calling to inform doctor that the patient's insurance will not pay for this medication without a completed prior authorization. Did confirm this information with the pharmacy. Pt's current insurance information is as follows: Patient name: Tiffany Jaimes ID number: [id number] BIN number: [id number] PCN number: Group number: [id number] Subscriber name: Tiffany Jaimes Primary or Secondary Insurance:Primary Medication: Sucralfate 1 GM/10ML Oral Suspension (Carafate) Reason for Request: Needs a PA Pharmacy and phone number: [facility] [address] [place] [address]- [place] Rx plan and phone number: Kate [phone] Is this a new medication for the patient? Yes What alternative medications does the pharmacy have in stock?: Thank you, Olga Sloan Telephone Maintainer [facility] 08/25/2024, 12:31 PM * Telephone Encounter - [...] EST Telemedicine Psychiatry Teresa Valdivia [address] [place] [phone] Ilya Stovall MD [address] [place] [address] 10/01/2024 1:00 PM EST Nurse Only Gynecology/Obstetrics [facility] [address] [place] [address] Gw, Nurse Obgyn Injection 132 [place] [address] 10/21/2024 8:00 AM EDT Office Visit [address] [phone] Angi Resendiz MD [address] [facility] [place] [facility] [place] [address] 12/10/2024 3:00 PM EDT Office Visit Cardiology, [facility] [address] [place] [address] Ema Vargas PA-C [address] [place] [address] [employer], [place] [id number] 04/22/2025 8:00 AM EDT Office Visit Gynecology/Obstetrics [facility] [address] [place] [address] Demi Jolly PA-C 132 [place] [address] Scheduled Procedures Name Priority Associated Diagnoses Date/Ti [...] filedocumented as of this encounter Care Teams Solar Energy Advisor Relationship Specialty Start Date End Date Óscar Foster III, MD [address] [facility] [place] [address] PCP - General Family Medicine 07/15/23 documented as of this encounter
--- OUTSIDE RECORDS SUMMARY | 2024-10-21 09:11 | External Medical Summary | Summary of Care ---
Author Name Unknown Organization [facility] Address [address] [place] [address] Phone [phone] Care Team Providers Care Die Set Up Worker Name Role Phone Ivania CLEVELAND MD, John E Primary Care Provider [phone] Reason for Visit * Reason Onset Date Comments Medication Refill 08/25/2024 Medication Pre-auth 08/16/2024 Encounter Details Date Type Department Care Team (Late st Contact Info) Description 08/16/2024 Telephone Family Practice [facility] [address] [facility] [place] [address] Óscar Foster III, MD 200 [place] [address] Medication Refill; Medication Pre-auth Allergies Active Allergy [...] mgIndications:Surveillance for Depo-Provera contraception 150 mg IM [id number] 04/14/2024 Active documented as of this encounter [...] Industry 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 Job End Date 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 We will follow-up with insurance starting 08/27. Per [facility] request, if no decision is received from insurance by 08/30, we will route back to the [facility] after clarifying with the pharmacy that the claim is still not processing. SHAHLA Ortiz MEDICATION VISUALLY IMPAIRED TEACHER, [facility] [email or web address] [phone] - phone [phone] - fax 08/26/2024,6:00 PM * Telephone Encounter - Brendon Escoto [facility] - 08/26/2024 10:08 AM EST [...] upon this and route back to the [facility] pool if no decision is made by the insurance by 08/30, after clarifying with the pharmacy that the claim is still not processing. If PA is denied, please also route back to [facility] pool. Thanks, Brendon Escoto, Betty Clinical Pharmacist [facility] ([facility]) [phone] 08/26/2024, 10:08 AM * Telephone Encounter - Haleigh Delatorre [facility] - 08/25/2024 2:21 PM EST Unable to reach patient. LMOVM. Please transfer her back to myself. If I'm not available, transfer to next available [facility]. In OV note, refill only (changed to suspension, patient did not tolerate pills) Please assess how the patient did not tolerate the pills? Will need provider to document that in OVbefore we can submit for PA Thank you, Haleigh Delatorre [facility] Clinical Pharmacist [facility] ([facility]) 08/25/24 2:21 PM [phone] * Telephone Encounter - Eugenia Uribe PHARM Tech - 08/25/2024 2:07 PM EST This is a new PA request. Upon review of this prior authorization request, I verified this request is appropriate. This is prescribed by a department for which [facility] authorized to review prior authorizations This [...] advise how to proceed. Thanks, Eugenia Uribe Mobile Application Engineer [facility] Clinical Pharmacy Services ([facility]) 08/25/2024,2:07 PM * Telephone Encounter - Olga Sloan PHARM Tech - 08/25/2024 12:31 PM EST Pharmacy calling to inform doctor that the patient's insurance will not pay for this medication without a completed prior authorization. Did confirm this information with the pharmacy. Pt's current insurance information is as follows: Patient name: Tiffany Jaimes ID number: [id number] BIN number: [id number] PCN number: Group number: [id number] Subscriber name: Tiffany Jaimes Primary or Secondary Insurance:Primary Medication: Sucralfate 1 GM/10ML Oral Suspension (Carafate) Reason for Request: Needs a PA Pharmacy and phone number: [facility] [place] Rx plan and phone number: [facility] [phone] Is this a new medication for the patient? Yes What alternative medications does the pharmacy have in stock?: Thank you, Olga Sloan Skiing Instructor [facility] [address] Telepharmacy 08/25/2024, 12:31 PM * Telephone Encounter [...] 2:30 PM EST Rehab Services Physical Therapy [address] [phone] Orville Lopez, [address] [address] 09/16/2024 1:30 PM EST Telemedicine Psychiatry [place] [address] [address] [place] [phone] Ilya Stovall MD [address] [place] [address] 10/01/2024 1:00 PM EST Nurse Only Gynecology/Obstetrics [facility] [address] [place] [address] Gw, Nurse Obgyn Injection [address] [facility] [place] [address] 10/21/2024 8:00 AM EDT Office Visit [address] [phone] Angi Resendiz MD 21 [facility] [place] [address] 12/10/2024 3:00 PM EDT Office Visit Cardiology, [facility] [address] [place] [address] Ema Vargas PA-C [address] [place] [address] [place], [place] [phone] 04/22/2025 8:00 AM EDT Office Visit Gynecology/Obstetrics [facility] 132 [place] [address] Demi Jolly PA-C 132 [place] [address] Scheduled Procedures Name Priority Associated Diagnoses Date/Ti [...] filedocumented as of this encounter Care Teams Die Set Up Worker Relationship Specialty Start Date End Date Óscar Foster III, MD [address] [place] [address] PCP - General Family Medicine 07/15/23 documented as of this encounter
--- OUTSIDE RECORDS SUMMARY | 2024-10-21 09:12 | External Medical Summary | Summary of Care ---
Author Name Unknown Organization [facility] Address [address] [place] [address] Phone [phone] Care Team Providers Care Pulp Mixer Name Role Phone Ivania CLEVELAND MD, Yuan Ya Primary Care Provider [phone] Reason for Visit * Reason Onset Date Comments Pre Op Discussion 07/19/2024 Encounter Details Date Type Department Care Team (Late st Contact Info) Description 07/19/2024 Telephone Pre Surgery Center, [facility] [address] [employer] [facility] [place] [address] Audi Rodriguez MD [address] [employer] [facility] [place] [address] Pre Op Discussion Allergies Active Allergy Reactions Criticality Noted Date Comments Food (See Comments) 04/30/2018 Kiwi tongue escalante documented as of this encounter (statuses as of 07/29/2024) Medications Probiotic Daily Oral Capsule Take 1 Cap by mouth daily. Active One-A-Day Womens 50+ Advantage Oral Tablet Take 1 Tablet by mouth in the morning. Active Omeprazole 40 MG Oral Capsule Delayed Release (PriLOSEC) Take 1 Capsule by mouth in the morning. Active Metoprolol Succinate ER 100 MG Oral Tablet Extended Release 24 Hour (Toprol XL) Take 0.5 Tablets by mouth in the morning and 0.5 Tablets before bedtime. 90 Tablet 3 3 Active Ondansetron HCl 4 MG Oral Tablet Take 1 Tablet by mouth every 8 hours as needed for Nausea. Active Trospium Chloride 20 MG Oral Tablet (Sanctura) Take 1 Tablet by mouth every evening. 30 Tablet 6 4 Active Sucralfate 1 GM Oral Tablet (Carafate) Take 1 Tablet by mouth in the morning and 1 Tablet at noon and 1 Tablet in the evening and 1 Tablet before bedtime. half an hour before meals and at bedtime. 120 Tablet 4 Active Additional Information Patient not taking.Reported on 07/19/2024 lamoTRIgine 100 MG Oral Tablet (LaMICtal) Take [...] as needed for Anxiety. 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 04/27/2024 Generalized abdominal pain 04/27/2024 Generalized anxiety disorder 02/02/2024 PTSD (post-traumatic stress disorder) 02/02/2024 Severe episode of recurrent major depressive disorder, without psychotic features 08/13/2021 POTS (postural orthostatic tachycardia syndrome) 08/18/2019 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 Left voice message for the patient to return call to complete PAT evaluation. documented in this encounter Plan of Treatment Upcoming Encounters Date Type Department Care Team (Latest Contact Info) Description 07/30/2024 11:15 AM EST Hospital Encounter ENDO [facility], Endoscopy Room [facility] [address] [place] [phone] Audi Rodriguez MD [address] [place] [address] 07/30/2024 11:15 AM EST - 07/30/2024 12:15 PM EST Surgery ENDO [facility], Endoscopy Room [facility] [address] [place] [phone] Audi Rodriguez MD [address] [place] [address] COLONOSCOPY FLEXIBLE PROXIMAL DIAGNOSTIC 09/16/2024 1:30 PM EST Telemedicine Psychiatry [place] [address] [address] [place] [address] Ilya Stovall MD [address] [place] [address] 10/01/2024 1:00 PM EST Nurse Only Gynecology/Obstetri [facility] [address] [place] [address] Gw, Nurse Obgyn Injection [address] [facility] [place] [address] 04/22/2025 8:00 AM EDT Office Visit Gynecology/Obstetri [facility] [address] [facility] [place] [address] Demi Jolly PA-C [address] [facility] [place] [address] Scheduled Procedures Name Priority Associated Diagnoses Date/Ti me COLONOSCOPY FLEXIBLE PROXIMA L DIAGNOSTIC Diarrhea GERD (gastroesophageal reflux disease) 07/30/2024 11:15 AM EST ESOPHAGOGASTRODUODENOSCOPY ( EGD), FLEXIBLE, TRANSORAL, DIAGNOSTIC Diarrhea GERD (gastroesophageal reflux disease) 07/30/2024 11:15 AM EST Health Maintenance Due Date Last Done Comments HIV Screening 2013 Hepatitis C Screening 01/23/2016 Hepatitis B Vaccine (1 of 3 - 19+ 3-dose series) 2017 COVID-19 Vaccine ( season) 2024 12/11/2020, 11/13/2020 Influenza Vaccine (FLU shot) (#1) 2024 09/19/2023, 06/01/2019, 08/26/2018 Depression Monitoring 07/29/2024 07/29/2023 Pap Smear 04/14/2027 04/14/2024, 06/01/2019 DTap/Tdap Vaccines (2 - Td or Tdap) 07/08/2033 07/08/2023 Gonorrhea / Chlamydia Screen Discontinued 08/26/2023, 03/14/2021, [...] filedocumented as of this encounter Care Teams Pulp Mixer Relationship Specialty Start Date End Date Yuan Redd III, MD [address] [place] [address] PCP - General Family Medicine 07/15/23 documented as of this encounter
--- OUTSIDE RECORDS SUMMARY | 2024-10-21 09:12 | External Medical Summary | Summary of Care ---
Author Name Unknown Organization [facility] Address [address] [place] [address] Phone [phone] Care Team Providers Care Student Affairs Dean Name Role Phone Ivania CLEVELAND MD, John E Primary Care Provider [phone] Reason for Visit * Reason Onset Date Comments Medication Refill 08/25/2024 Medication Pre-auth 08/16/2024 Encounter Details Date Type Department Care Team (Late st Contact Info) Description 08/16/2024 Telephone Family Practice [facility] [address] [place] [address] Óscar Foster III, MD [address] [place] [address] Medication Refill; Medication Pre-auth Allergies Active Allergy [...] mgIndications:Surveillance for Depo-Provera contraception 150 mg IM [id number] 04/14/2024 Active documented as of this encounter [...] Industry 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 Job End Date 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 We will follow-up with insurance starting 08/27. Per [facility] request, if no decision is received from insurance by 08/30, we will route back to the [facility] after clarifying with the pharmacy that the claim is still not processing. SHAHLA Ortiz MEDICATION ELECTRICAL ENGINEERING TECHNICIAN, [facility] HUB [email or web address] [phone] - phone [phone] - fax 08/26/2024,6:00 PM * Telephone Encounter - Brendon Escoto [facility] - 08/26/2024 10:08 AM EST Please submit [...] upon this and route back to the [facility] pool if no decision is made by the insurance by 08/30, after clarifying with the pharmacy that the claim is still not processing. If PA is denied, please also route back to [facility] pool. Thanks, Brendon Escoto, Betty Clinical Pharmacist [facility] [phone] 08/26/2024, 10:08 AM * Telephone Encounter - Haleigh Delatorre [facility] - 08/25/2024 2:21 PM EST Unable to reach patient. LMOVM. Please transfer her back to myself. If I'm not available, transfer to next available [facility]. In OV note, refill only (changed to suspension, patient did not tolerate pills) Please assess how the patient did not tolerate the pills? Will need provider to document that in OVbefore we can submit for PA Thank you, Haleigh Delatorre [facility] Clinical Pharmacist [facility] 08/25/24 2:21 PM [phone] * Telephone Encounter - Eugenia Uribe PHARM Tech - 08/25/2024 2:07 PM EST This is a new PA request. Upon review of this prior authorization request, I verified this request is appropriate. This is prescribed by a department for which [facility] is authorized to review prior authorizations [...] advise how to proceed. Thanks, Eugenia Uribe Sheet Metal Assembler [facility] ([facility]) 08/25/2024,2:07 PM * Telephone Encounter - Olga Sloan PHARM Tech - 08/25/2024 12:31 PM EST Pharmacy calling to inform doctor that the patient's insurance will not pay for this medication without a completed prior authorization. Did confirm this information with the pharmacy. Pt's current insurance information is as follows: Patient name: Tiffany Jaimes ID number: [id number] BIN number: [id number] PCN number: Group number: [id number] Subscriber name: Tiffany Jaimes Primary or Secondary Insurance:Primary Medication: Sucralfate 1 GM/10ML Oral Suspension (Carafate) Reason for Request: Needs a [place] Pharmacy and phone number: [facility] [place] Rx plan and phone number: [employer] [phone] Is this a new medication for the patient? Yes What alternative medications does the pharmacy have in stock?: Thank you, Olga Sloan Trackmobile Operator [facility] 08/25/2024, 12:31 PM * Telephone [...] 2:30 PM EST Rehab Services Physical Therapy [address] [phone] Orville Lopez, [address] [address] 09/16/2024 1:30 PM EST Telemedicine Psychiatry [place] [facility] [place] [address] [place] [phone] Ilya Stovall MD [address] [place] [address] 10/01/2024 1:00 PM EST Nurse Only Gynecology/Obstetrics [facility] [address] [place] [address] Gw, Nurse Obgyn Injection 132 [place] [address] 10/21/2024 8:00 AM EDT Office Visit [address] [phone] Angi Resendiz MD [address] [facility] [place] [address] 12/10/2024 3:00 PM EDT Office Visit Cardiology, [facility] [address] [place] [address] Ema Vargas PA-C [address] [place] [address] [place], [place] [id number] 04/22/2025 8:00 AM EDT Office Visit Gynecology/Obstetrics [facility] [address] [place] [address] Demi Jolly PA-C 132 [facility] [place] [address] Scheduled Procedures Name Priority Associated Diagnoses Date/Ti [...] filedocumented as of this encounter Care Teams Student Affairs Dean Relationship Specialty Start Date End Date Óscar Foster III, MD [address] [place] [address] PCP - General Family Medicine 07/15/23 documented as of this encounter
--- OUTSIDE RECORDS SUMMARY | 2024-10-21 09:12 | External Medical Summary | Summary of Care ---
Author Name Unknown Organization [facility] Address [address] [place] [address] Phone [phone] Care Team Providers Care Jazz Musician Name Role Phone Ivania CLEVELAND MD, Yuan Ya Primary Care Provider [phone] Reason for Referral * Evaluate & Treat - Unlimited Visits (Within 10 days (routine)) - Pending Review Specialty Diagnoses / Procedures Referred By Luis F yañez Referred To Contact Physical Therapy / Physical Medicine And Rehab Diagnoses Acute left ankle pain Left knee pain, unspecified chronicity Angi Resendiz MD [address] [place] [address] Phone: tel: fax: Referral ID Status Reason Start Date Expiration Date Visits Requested Visits Authorized [id number] Pending Review Specialty Services Required 08/23/[phone] Question Answer Referral Priority Within 10 days (routine) Where should this appointment be scheduled? [facility] Reason for Visit * Reason Comments Acute Encounter Details Date Type Department Care Team ([facility] st Contact Info) Description 08/23/2024 10:00 AM EST Office Visit [facility] [address] [place] [address] Angi Resendiz MD [address] [place] [address] Acute left ankle pain*; Epigastric pain; Left knee pain, unspecified chronicity Allergies Active Allergy Reactions Criticality Noted Date Comments Food (See Comments) 04/30/2018 Kiwi tongue escalante documented as of this encounter (statuses as of 08/23/2024) Medications Trospium Chloride 20 MG Oral Tablet [...] 5 Active Sucralfate 1 GM/10ML Oral Suspension (Carafate)Kelly cations:Epigas tric pain Take 10 mL by mouth in the morning and 10 mL at noon and 10 mL in the evening and 10 mL before bedtime. 420 mL 5 Active Multivit/Multi mineral Adult Oral Liquid Take 1 Tablet by mouth every evening. 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 04/27/2024 Generalized abdominal pain 04/27/2024 Generalized anxiety disorder 02/02/2024 PTSD (post-traumatic stress disorder) 02/02/2024 Severe episode of recurrent major depressive disorder, without psychotic features 08/13/2021 POTS (postural orthostatic tachycardia syndrome) 08/18/2019 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 documented as of this encounter (statuses as of 08/23/2024) Resolved Problems Problem Noted Date Diagnosed Date Resolved Date 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 02/20/2021 documented as of this encounter (statuses as of 08/23/2024) Immunizations Name Administration Dates Next Due COVID-19 [...] Industry 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 Job End Date 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 Not on file documented as of this encounter Last Filed Vital Signs Vital Sign Reading Time Taken Comments Blood Pressure 112/76 08/23/2024 10:13 AM EST Pulse 79 08/23/2024 10:13 AM EST Temperature 36.5 C (97.7 F) 08/23/2024 10:[address] Respiratory Rate 16 08/23/2024 10:13 AM EST Oxygen Saturation 97% 08/23/2024 10:13 AM EST Inhaled Oxygen Concentration - - Weight 81 kg (178 lb 9.6 oz) 08/23/2024 10:13 AM EST Height 175.3 cm (5' 9") 08/23/2024 10:13 AM EST Body Mass Index 26.37 08/23/2024 10:13 AM EST documented in this encounter Progress Notes * Angi Resendiz MD - 08/23/2024 10:17 AM EST Images from the original note were not included. History of Present Illness Tiffany Jaimes is a 24 year old female that presents for Acute Acute visit. Patient reports chronic intermittent joints pain , worse for the past week (mostly left ankle and left knee). No trauma. No change in activity level. Pain is sharp shooting, more constant for the past week, mild to moderate. Limp +/- due to left ankle pain. No swelling/redness/warmth. Better with Tylenol. Worse with? No numbness/tingling/weakness Normal urination. Constipation+/- , hx IBS-c Hx polyarthralgia. Seen nuclear plant technical advisor in 2019 , workup was negative, advised PT and return in 4 months. Known Chuck- Danlos syndrome. POTs. Depression- stable. FH: mother with fibromyalgia and POTs Patient worries about fibromyalgia Physical Exam Vitals: 08/23/24 1013 Temp: 97.7 F (36.5 C) Pulse: 79 Resp: 16 SpO2: 97% BP: 112/76 BMI: 26.36 BP Readings from Last 3 Encounters: 08/23/24 112/76 07/30/24 109/71 05/28/24 116/60 Wt Readings from Last 3 Encounters: 08/23/24 178 lb 9.6 oz (81 kg) 07/30/24 170 lb (77.1 kg) 05/28/24 182 lb 3.2 oz (82.6 kg) BMI Readings from Last 3 Encounters: 08/23/24 26.37 kg/m 07/30/24 25.09 kg/m 05/28/24 26.91 kg/m Physical Exam Constitutional: General: She is not in acute distress. Appearance: Normal appearance. HENT: Head: Normocephalic and atraumatic. Right Ear: Tympanic membrane, ear canal and external ear normal. Left Ear: Tympanic membrane, ear canal and external ear normal. Nose: Nose normal. Mouth/Throat: Mouth: Mucous membranes are moist. Pharynx: Oropharynx is clear. Eyes: Conjunctiva/sclera: Conjunctivae normal. Pupils: Pupils are equal, round, and reactive to light. Cardiovascular: Rate and Rhythm: Normal rate and regular rhythm. Pulses: Normal pulses. Pulmonary: Effort: Pulmonary effort is normal. Breath sounds: Normal breath sounds. Abdominal: General: Bowel sounds are normal. There is no distension. Palpations: Abdomen is soft. Tenderness: There is no abdominal tenderness. Musculoskeletal: Cervical back: Neck supple. Left knee: Normal. Right lower leg: No edema. Left lower leg: No edema. Left ankle: Normal. Skin: General: Skin is warm and dry. Findings: No rash. Neurological: Mental Status: She is alert and oriented to person, place, and time. Psychiatric: Mood and Affect: Mood normal. Behavior: Behavior normal. I have reviewed the following results: None Assessment and Plan 1. Epigastric pain - Sucralfate 1 GM/10ML Oral Suspension (Carafate); Take 10 mL by mouth in the morning and 10 mL at noon and 10 mL in the evening and 10 mL before bedtime. Dispense: 420 mL; Refill: 0 - refill only (changed to suspension, patient did not tolerate pills) 2. Acute left ankle pain (Primary) - PHYSICAL THERAPY REFERRAL OP - DURABLE MEDICAL EQUIPMENT - consider podiatry - Tylenol as needed 3. Left knee pain, unspecified chronicity - PHYSICAL THERAPY REFERRAL OP Wrap-Up As needed Time: I spent a total of 20-29 minutes (exact time 25 mins) on the date of service in preparation, delivery, and documentation of the care provided to Tiffany Jaimes excluding any time spent in the performance of separately billed services. documented in this encounter Nursing Notes * Annie Reyez LPN - 08/23/2024 10:11 AM EST The patient has been properly identified by confirmation of name and date of . Chief Complaint Patient presents with Acute Pt here for generalized pain from waist down. Feels like nerve pains. This pain started approximately about 1 week ago. documented in this encounter Plan of Treatment Upcoming Encounters Date Type Department Care Team ([facility] Contact Info) Description 08/31/2024 2:30 PM EST Rehab Services Physical Therapy [address] [place] [phone] Orville Lopez, PT [address] [place] [address] 09/16/2024 1:30 PM EST Telemedicine Psychiatry [place] [address] [place] [address] Ilya Stovall MD [address] [place] [address] 10/01/2024 1:00 PM EST Nurse Only Gynecology/Obstetrics [facility] [address] [place] [address] Gw, Nurse Obgyn Injection 132 [facility] [place] [address] 10/21/2024 8:00 AM EDT Office Visit Family [address] [phone] Angi Resendiz MD [address] [place] [address] 12/10/2024 3:00 PM EDT Office Visit Cardiology, [facility] 132 [facility] [place] [address] Ema Vargas PA-C [address] [facility] [place] [address] 04/22/2025 8:00 AM EDT Office Visit Gynecology/Obstetrics [facility] [address] [facility] [place] [address] Demi Jolly PA-C 132 [facility] [place] [address] Scheduled Procedures Name Priority Associated Diagnoses Date/Ti me COLONOSCOPY FLEXIBLE PROXIMA L DIAGNOSTIC Recall History of colonic polyps Scheduled Referrals Name Type Priority Associated Diagnoses Orde r Schedule PHYSICAL THERAPY REFERRAL OP Referral Within 10 days (routine) Acute left ankle pain Left knee pain, unspecified chronicity Ordered: 08/23/2024 Health Maintenance Due Date Last Done Comments [...] as of this encounter Visit Diagnoses Diagnosis Acute left ankle pain- Primary Epigastric pain Abdominal pain, epigastric Left knee pain, unspecified chronicity documented in this encounter Care Teams Jazz Musician Relationship Specialty Start Date End Date Yuan Redd III, MD [address] [place] [address] PCP - General Family Medicine 07/15/23 documented as of this encounter
--- OUTSIDE RECORDS SUMMARY | 2024-10-21 09:12 | External Medical Summary | Summary of Care ---
Author Name Unknown Organization [facility] Address [address] [place] [address] Phone [phone] Care Team Providers Care Mechanical Inspector Name Role Phone Ivania CLEVELAND MD, John E Primary Care Provider [phone] Reason for Visit * Reason Onset Date Comments Medication Refill 08/25/2024 Medication Pre-auth 08/16/2024 Encounter Details Date Type Department Care Team (Late st Contact Info) Description 08/16/2024 Telephone Family Practice [facility] 200 [facility] [address] Óscar Foster III, MD 200 [place] [address] Medication Refill; Medication Pre-auth Allergies Active Allergy [...] mgIndications:Surveillance for Depo-Provera contraception 150 mg IM [id number] 04/14/2024 Active documented as of this encounter [...] 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 If PA is denied, please also route back to [facility] pool. Thanks, Brendon Escoto PharmD Clinical Pharmacist [facility] ([facility] [phone] 08/26/2024, 10:08 AM * Telephone Encounter - Haleigh Delatorre [facility] - 08/25/2024 2:21 PM EST Unable to reach patient. LMOVM. Please transfer her back to myself. If I'm not available, transfer to next available [facility]. In OV note, refill only (changed to suspension, patient did not tolerate pills) Please assess how the patient did not tolerate the pills? Will need provider to document that in OVbefore we can submit for PA Thank you, Haleigh Delatorre [facility] Clinical Pharmacist [facility] 08/25/24 2:21 PM [phone] Electronically signed by Haleigh Delatorre [facility] at 08/25/2024 2:25 PM EST * Telephone Encounter - Eugenia Uribe preservative filler machine operator - 08/25/2024 2:07 PM EST This is a new PA request. Upon review of this prior authorization request, I verified this request is appropriate. This is prescribed by a department for which [facility] is authorized to review prior authorizations This [...] note, there is nothing currently pending in [facility] for this request. Please advise how to proceed. Thanks, Eugenia Uribe Government Teacher III [facility] ([facility]) 08/25/2024,2:07 PM * Telephone Encounter - Olga Sloan PHARM Tech - 08/25/2024 12:31 PM EST Pharmacy calling to inform doctor that the patient's insurance will not pay for this medication without a completed prior authorization. Did confirm this information with the pharmacy. Pt's current insurance information is as follows: Patient name: Tiffany Jaimes ID number: [id number] BIN number: [id number] PCN number: Group number: [id number] Subscriber name: Tiffany Jaimes Primary or Secondary Insurance:Primary Medication: Sucralfate 1 GM/10ML Oral Suspension (Carafate) Reason for Request: Needs a [place] Pharmacy and phone number: [facility] [address] [place] [address].- [place] Rx plan and phone number: [email or web address] [phone] Is this a new medication for the patient? Yes What alternative medications does the pharmacy have in stock?: Thank you, Olga Sloan Director Of Housing And Energy Services [facility] 08/25/2024, 12:31 PM * Telephone Encounter - [...] Upcoming Encounters Date Type Department Care Team ([facility] Contact Info) Description 08/31/2024 2:30 PM EST Rehab Services Physical Therapy [address] [place] [address] Orville Lopez, [address] [address] 09/16/2024 1:30 PM EST Telemedicine Psychiatry [facility] [address] [place] [address] Ilya Stovall MD [address] [place] [address] 10/01/2024 1:00 PM EST Nurse Only Gynecology/Obstetrics [facility] [address] [facility] [place] [address] Gw, Nurse Obgyn Injection 132 [facility] [place] [address] 10/21/2024 8:00 AM EDT Office Visit Family [facility] [address] [place] [phone] Angi Resendiz MD [address] [place] [address] 12/10/2024 3:00 PM EDT Office Visit Cardiology, [facility] [address] [place] [address] Ema Vargas PA-C 400 [facility] [place] [address] 04/22/2025 8:00 AM EDT Office Visit Gynecology/Obstetrics [facility] [address] [place] [address] Demi Jolly PA-C 132 [facility] [place] [address] Scheduled Procedures Name Priority Associated Diagnoses Date/Ti [...] filedocumented as of this encounter Care Teams Mechanical Inspector Relationship Specialty Start Date End Date Óscar Foster III, MD 200 [facility] [place] [address] PCP - General Family Medicine 07/15/23 documented as of this encounter
--- OUTSIDE RECORDS SUMMARY | 2024-10-21 09:12 | External Medical Summary | Summary of Care ---
Author Name Unknown Organization [facility] Address [address] [place] [address] Phone [phone] Care Team Providers Care Organ Fixer Name Role Phone Ivania CLEVELAND MD, Yuan Ya Primary Care Provider [phone] Reason for Visit * Auth/Cert Specialty Diagnoses / Procedures Referred By Luis F yañez Referred To Contact Diagnoses Diarrhea GERD (gastroesophageal reflux disease) Diarrhea [R19.7] GERD (gastroesophageal reflux disease) [K21.9] Procedures COLONOSCOPY, DIAGNOSTIC (RECTUM) EGD, FLEXIBLE, DIAGNOSTIC COLONOSCOPY FLEXIBLE PROXIMAL DIAGNOSTIC ESOPHAGOGASTRODUODENOSCOPY (EGD), FLEXIBLE, TRANSORAL, DIAGNOSTIC Audi Rodriguez MD [address] [place] [address] Phone: tel: fax: [facility], Endoscopy Room [facility] [address] [place] [address] Phone: tel: Referral ID Status Reason Start Date Expiration Date Visits Re quested Visits Authorized [id number] Encounter Details Date Type Department Care Team (Latest Contact Info) Description 07/30/2024 10:26 AM EST - 07/30/2024 12:33 PM EST Hospital Encounter [facility], Endoscopy Room [facility] [address] [place] [address] Audi Rodriguez MD [address] [place] [address] Various: UGI,GICOLON Discharge Disposition: Home - Self Care Allergies Active Allergy Reactions Criticality Noted Date Comments Food (See Comments) 04/30/2018 Kiwi tongue escalante documented as of this encounter (statuses as of 07/31/2024) Medications Probiotic Daily Oral Capsule Take 1 Cap by mouth daily. Active One-A-Day Womens 50+ Advantage Oral Tablet Take 1 Tablet by mouth in the morning. Active Metoprolol Succinate ER 100 MG Oral Tablet Extended Release 24 Hour (Toprol XL) Take 0.5 Tablets by mouth in the morning and 0.5 Tablets before bedtime. 90 Tablet 3 07/24/20 23 Active Ondansetron HCl 4 MG Oral Tablet Take 1 Tablet by mouth every 8 hours as needed for Nausea. Active Trospium Chloride 20 MG Oral Tablet (Sanctura) Take 1 Tablet by mouth every evening. 30 Tablet 6 04/09/20 24 Active Sucralfate 1 GM Oral Tablet (Carafate) Take 1 Tablet by mouth in the morning and 1 Tablet at noon and 1 Tablet in the evening and 1 Tablet before bedtime. half an hour before meals and at bedtime. 120 Tablet 04/27/20 24 Active Additional Information Patient not taking.Reported on 07/19/2024 lamoTRIgine 100 MG Oral Tablet (LaMICtal) Take 0.5 Tablets by mouth in the morning and 0.5 Tablets before bedtime. 30 Tablet 2 07/12/20 24 Active Gabapentin 300 MG Oral Capsule (Neurontin) Take 1 Capsule by mouth in the morning and 1 Capsule before bedtime. 60 Capsule 2 07/12/20 24 Active DULoxetine HCl 20 MG Oral Capsule Delayed Release Particles (Cymbalta) Take 1 Capsule by mouth in the morning. 30 Capsule 2 07/12/20 24 Active LORazepam 0.5 MG Oral Tablet (Ativan) Take 1 Tablet by mouth 2 times a day as needed for Anxiety. 60 Tablet 2 07/12/20 24 Active Omeprazole 40 MG Oral Capsule Delayed Release (PriLOSEC) Take 1 Capsule by mouth in the morning. 30 Capsule 3 5 12:37 PM EST 07/30/19 25 Active Omeprazole 40 MG Oral Capsule Delayed Release (PriLOSEC) Take 1 Capsule by mouth in the morning. 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 Not on file Not on file documented as of this encounter Last Filed Vital Signs Vital Sign Reading Time Taken Comments Blood Pressure 109/71 07/30/2024 12:11 PM EST Pulse 79 07/30/2024 12:11 PM EST Temperature 36.1 C (97 F) 07/30/2024 11:53 AM EST Respiratory Rate 16 07/30/2024 12:11 PM EST Oxygen Saturation 100% 07/30/2024 12:11 PM EST Inhaled Oxygen Concentration - - Weight 77.1 kg (170 lb) 07/30/2024 11:00 AM EST Height 175.3 cm (5' 9.02") 07/30/2024 11:[address] Body Mass Index 25.09 07/30/2024 11:00 AM EST documented in this encounter H&P Notes * Audi Rodriguez MD - 07/30/2024 11:12 AM EST Endoscopy Pre-Procedure Assessment Name: Tiffany Jaimes Date: 07/30/2024 Time: 11:12 AM Procedure: Colonoscopy; with Indication(s) of chronic diarrhea Upper GI Endoscopy; with Indication(s) of evaluation of reflux (including Remy pH probe placement) Endoscopy Pre-Procedure Assessment: Prior to the procedure, the patient was identified. The patient's history, medications and allergies were reviewed as per the Anesthesia Assessment. The patient is competent. The risks and benefits of the proposed procedure and the planned sedation were discussed with the patient. All questions were answered and informed consent for the procedure was obtained. This patient has undergone a preprocedural evaluation. A determination has been made to proceed with the planned procedure under [facility] procedural guidelines and the [facility] Non-Emergent, Elective Medical Services and Treatment Recommendations (published on 11-02-19). The community and hospital prevalence of COVID-19 has been discussed as well as this patient's specific risks associated with SARS-CoV-19 infection. Based upon the clinical acuity and patient-specific care considerations, this procedure is deemed a Tier II - Intermediate acuity treatment or service with either progression or the threat of progressive disease related to the delay in treatment. Not providing the service has the potential for increasing morbidity or mortality. BP 127/82 | Pulse 84 | Temp 36.1 C (97 F) (Tympanic) | Resp 16 | Ht 1.753 m (5' 9.02") | Wt 77.1 kg (170 lb) | SpO2 100% | BMI 25.09 kg/m | BSA 1.94 m Prior to Admission medications Medication Sig Last Dose Discont. DULoxetine HCl 20 MG Oral Capsule Delayed Release Particles (Cymbalta) Take 1 Capsule by mouth in the morning. 07/19/2024 Morning Gabapentin 300 MG Oral Capsule (Neurontin) Take 1 Capsule by mouth in the morning and 1 Capsule before bedtime. 07/19/2024 Morning lamoTRIgine 100 MG Oral Tablet (LaMICtal) Take 0.5 Tablets by mouth in the morning and 0.5 Tablets before bedtime. 07/19/2024 Morning LORazepam 0.5 MG Oral Tablet (Ativan) Take 1 Tablet by mouth 2 times a day as needed for Anxiety. Past Week Trospium Chloride 20 MG Oral Tablet (Sanctura) Take 1 Tablet by mouth every evening. Past Month Metoprolol Succinate ER 100 MG Oral Tablet Extended Release 24 Hour (Toprol XL) Take 0.5 Tablets bymouth in the morning and 0.5 Tablets before bedtime. 07/19/2024 Morning Fluconazole 150 MG Oral Tablet (Diflucan) Take 1 Tablet by mouth once for 1 dose. Sucralfate 1 GM Oral Tablet (Carafate) Take 1 Tablet by mouth in the morning and 1 Tablet at noon and 1 Tablet in the evening and 1 Tablet before bedtime. half an hour before meals and at bedtime. Patient not taking: Reported on 07/19/2024 Not Taking Ondansetron HCl 4 MG Oral Tablet Take 1 Tablet by mouth every 8 hours as needed for Nausea. Patient not taking: Reported on 07/19/2024 Not Taking Omeprazole 40 MG Oral Capsule Delayed Release (PriLOSEC) Take 1 Capsule by mouth in the morning. Over 30 Days One-A-Day Womens 50+ Advantage Oral Tablet Take 1 Tablet by mouth in the morning. Patient not taking: Reported on 07/19/2024 Not Taking Probiotic Daily Oral Capsule Take 1 Cap by mouth daily. Patient not taking: Reported on 07/19/2024 Not Taking Review of patient's allergies indicates: Allergen Reactions Food (See Comments) Kiwi tongue escalante Physical Exam: Mental Status Examination: alert and oriented. General: nad, calm Airway Examination: normal oropharyngeal airway and neck mobility. CV: no JVD Respiratory Examination: symmetrical excursion Abd:soft/ntd ASA Grade: III - A patient with severe systemic disease. After reviewing the risks and benefits, the patient was deemed in satisfactory condition to undergothe procedure. The anesthesia plan was to use general anesthesia. Audi Rodriguez MD 07/30/2024 documented in this encounter Procedure Notes * Yuan Redd III, MD - 07/30/2024 11:14 AM ESTAssociated Order(s): UPPER GI ENDOSCOPY [facility] Patient Name: Tiffany Jaimes Procedure Date: 07/30/2024 11:14 AM Date of : 2000 Admit Type: Outpatient Note Status: Finalized Date of : 2000 Admit Type: Outpatient Age: 24 Room: [facility] 3 Gender: Female Note Status: Finalized Procedure: Upper GI endoscopy Indications: Heartburn Providers: Audi Rodriguez MD (Doctor) Referring MD: Yuan Redd III, MD (Referring MD), Julita Sanderson (Referring MD) Medicines: Propofol per Anesthesia Complications: No immediate complications. Estimated blood loss: None. Procedure: Pre-Anesthesia Assessment: - - Prior to the procedure, a History and Physical was performed, patient medications, allergies and sensitivities were reviewed. The patient's tolerance of previous anesthesia was reviewed. See [facility] for further details. - The risks, benefits, and alternatives of the procedure including the sedation options and risks were discussed with the patient. All questions were answered and informed consent was obtained. - Patient identification and proposed procedure were verified prior to the procedure by the physician and the nurse. The procedure was verified in the procedure room. - See [facility] for documentation of the pre-procedure assessment including ASA status. - After I obtained informed consent, the scope was carefully and meticulously passed under direct vision only when the lumen was definitively identified. CO2 insufflation was utilized throughout the entire procedure exclusively. After obtaining informed consent, the endoscope was passed under direct vision. All instruments were visually inspected immediately before and after removal from the patient to ensure they are fully intact. Throughout the procedure, the patient's blood pressure, pulse, and oxygen saturations were monitored continuously. The upper GI endoscopy was accomplished without difficulty. The patient tolerated the procedure well. The GIF-H180J Endoscope([id number]) was introduced through the mouth, and advanced to the second part of duodenum. Findings & Specimens: The examined esophagus was normal. Biopsies were taken with a cold forceps for histology. The pathology specimen was placed into Bottle Number 3. The entire examined stomach was normal. Biopsies were taken with a cold forceps for histology. The pathology specimen was placed into Bottle Number 2. The examined duodenum was normal. Biopsies for histology were taken with a cold forceps for evaluation of celiac disease. The pathology specimen was placed into Bottle Number 1. Impression: - Normal esophagus. Biopsied. - Normal stomach. Biopsied. - Normal examined duodenum. Biopsied. Recommendation: - Discharge patient to home (with escort). - Pathology results will be reviewed with appropriate recommendations to follow. - Return to referring physician as previously scheduled. Adui Rodriguez MD 07/30/2024 11:39:32 AM This report has been signed electronically. * Yuan Redd III, MD - 07/30/2024 11:13 AM ESTAssociated Order(s): COLONOSCOPY [facility] Patient Name: Tiffany Jaimes Procedure Date: 07/30/2024 11:13 AM Date of : 2000 Admit Type: Outpatient Note Status: Finalized Date of : 2000 Admit Type: Outpatient Age: 24 Room: [facility] 3 Gender: Female Note Status: Finalized Procedure: Colonoscopy Indications: Clinically significant diarrhea of unexplained origin Providers: Audi Rodriguez MD (Doctor) Referring MD: Yuan Redd III, MD (Referring MD), Julita Sanderson (Referring MD) Medicines: Propofol per Anesthesia Complications: No immediate complications. Estimated blood loss: None. Procedure: Pre-Anesthesia Assessment: - - Prior to the procedure, a History and Physical was performed, patient medications, allergies and sensitivities were reviewed. The patient's tolerance of previous anesthesia was reviewed. See [facility] for further details. - The risks, benefits, and alternatives of the procedure including the sedation options and risks were discussed with the patient. All questions were answered and informed consent was obtained. - Patient identification and proposed procedure were verified prior to the procedure by the physician and the nurse. The procedure was verified in the procedure room. - See [facility] for documentation of the pre-procedure assessment including ASA status. - After I obtained informed consent, the scope was carefully and meticulously passed under direct vision only when the lumen was definitively identified. CO2 insufflation was utilized throughout the entire procedure exclusively. After I obtained informed consent, the scope was passed under direct vision. All instruments were visually inspected immediately before and after removal from the patient to ensure they are fully intact. Throughout the procedure, the patient's blood pressure, pulse, and oxygen saturations were monitored continuously.The colonoscopy was performed without difficulty. The patient tolerated the procedure well. The quality of the bowel preparation was good. The PCF-H190L Colonoscope ([id number]) was introduced through the anus and advanced to the cecum, identified by appendiceal orifice and ileocecal valve. Findings & Specimens: The terminal ileum appeared normal. A 3 mm polyp was found in the ascending colon. The polyp was sessile. The polyp was removed with a cold snare. Resection and retrieval were complete. The pathology specimen was placed into Bottle Number 5. Multiple small-mouthed diverticula were found in the sigmoid colon. Internal hemorrhoids were found during retroflexion. Biopsies for histology were taken with a cold forceps from the entire colon for evaluation of microscopic colitis. The pathology specimen was placed into Bottle Number 4. Impression: - The examined portion of the ileum was normal. - One 3 mm polyp in the ascending colon, removed with a cold snare. Resected and retrieved. - Diverticulosis in the sigmoid colon. - Internal hemorrhoids. - Biopsies were taken with a cold forceps from the entire colon for evaluation of microscopic colitis. Recommendation: - Discharge patient to home (with escort). - Repeat colonoscopy in 5 years for surveillance. - Return to referring physician as previously scheduled. - Patient has a contact number available for emergencies. The signs and symptoms of potential delayed complications were discussed with the patient. Return to normal activities tomorrow. Written discharge instructions were provided to the patient. - Pathology results will be reviewed with appropriate recommendations to follow. Audi Rodriguez MD 07/30/2024 11:54:31 AM This report has been signed electronically. documented in this encounter Nursing Notes * Prabha Garza RN - 07/30/2024 12:17 PM EST Patient is alert, pain free, and tolerating po fluids prior to discharge. Patient has been visited by Dr. Rodriguez. Patient has received and demonstrates understanding of discharge instructions. Pt assisted up to dress. Voices feeling the need to use the bathroom prior to discharge. Patient is transported via w/c to private auto accompanied by endo staff. * Prabha Garza RN - 07/30/2024 11:55 AM EST Patient transferred to post endo s/p EGD and Colonoscopy. Patient sleeping, unresponsive at this time. Respirations are even and unlabored on room air. NSR in the 70s on the monitor. Abdomen soft and non distended. Vital signs stable. * Flavia Waite RN - 07/30/2024 11:51 AM EST Specimen(s) and location(s) verified with physician post procedure 11:51 AM Flavia Waite RN Pt aamir EGD w/ bx well. Abd soft post proc. Stretcher repositioned for colonoscopy. Pt aamir colonoscopy w/ biopsy and polypectomy well. Abd soft post proc. To recovery lying on L side.Pre cleaning of scope at the bedside started by color technician. * Kaylin Muñoz RN - 07/30/2024 11:10 AM EST The following pt discharge instructions reviewed with pt prior to prodedure: No driving today. No alcohol today. No signing of legal documents. Rest as much as possible today and can return to normal activities tomorrow. No operating any heavy equipment today. Diet as tolerated. Pt verbalized understanding. Patient prepped, call ortiz within reach of patient. documented in this encounter Plan of Treatment Upcoming Encounters Date Type Department Care Team (Late st Contact Info) Description 09/16/2024 1:30 PM EST Telemedicine Psychiatry Teresa [address]div[address] [phone] Ilya Stovall MD [address] [address] 10/01/2024 1:00 PM EST Nurse Only Gynecology/Obstetrics [facility] [address] [place] [address] Gw, Nurse Obgyn Injection [address] [place] [facility] [place] [address] 04/22/2025 8:00 AM EDT Office Visit Gynecology/Obstetrics [facility] [address] [place] [address] Demi Jolly PA-C [address] [place] [address] Pending Results Name Type Priority Associated Diagnoses Date /Time SURGICAL PATHOLOGY Pathology Routine Diarrhea GERD (gastroesophageal reflux disease) 07/30/2024 11:51 AM EST Scheduled Orders Name Type Priority Associated Diagnoses Orde r Schedule SURGICAL PATHOLOGY Pathology Routine Diarrhea GERD (gastroesophageal reflux disease) Release Upon Ordering for 1 Occurrences starting 07/30/2024, 1 completed Health Maintenance Due Date Last Done Comments [...] Not on filedocumented as of this encounter Procedures Procedure Name Priority Date/Time Associated Diagnosis Comments UPPER GI ENDOSCOPY 07/30/2024 11 :14 AM EST COLONOSCOPY 07/30/2024 11:13 AM EST documented in this encounter Results * UPPER GI ENDOSCOPY (07/30/2024 11:14 AM EST) 07/30/2024 11:1 4 AM EST Narrative Procedure Note Yuan Redd III, MD - 07/30/2024 11:14 AM EST [facility] Patient Name: Tiffany Jaimes Procedure Date: 07/30/2024 11:14 AM Date of : 2000 Admit Type: Outpatient Note Status:Finalized Date of : 2000 Admit Type: Outpatient Age: 24 Room: [facility] 3 Gender: Female Note Status: Finalized Procedure: Upper GI endoscopy Indications: Heartburn Providers: Audi Rodriguez MD (Doctor) Referring MD: Yuan Redd III, MD (Referring MD), Julita Sanderson(Referring MD) Medicines: Propofol per Anesthesia Complications: No immediate complications. Estimated blood loss:None. Procedure: Pre-Anesthesia Assessment: - - Prior to the procedure, a History and Physicalwas performed, patient medications, allergies and sensitivities were reviewed. Thepatient's tolerance of previous anesthesia was reviewed. See Epic for furtherdetails. - The risks, benefits, and alternatives of theprocedure including the sedation options and risks were discussed with the patient.All questions were answered and informed consent was obtained. - Patient identification and proposed procedurewere verified prior to the procedure by the physician and the nurse. The procedure wasverified in the procedure room. - See [facility] for documentation of the pre-procedureassessment including ASA status. - After I obtained informed consent, the scope wascarefully and meticulously passed under direct vision only when the lumen wasdefinitively identified. CO2 insufflation was utilized throughout the entire procedureexclusively. After obtaining informed consent, the endoscope waspassed under direct vision. All instruments were visually inspected immediatelybefore and after removal from the patient to ensure they are fully intact. Throughout the procedure, the patient's bloodpressure, pulse, and oxygen saturations were monitored continuously. The upper GI endoscopywas accomplished without difficulty. The patient tolerated the procedurewell. The GIF-H180J Endoscope([id number]) was introduced through themout, and advanced to the second part of duodenum. Findings & Specimens: The examined esophagus was normal. Biopsies were taken with a coldforceps for histology. The pathology specimen was placed into Bottle Number 3. The entire examined stomach was normal. Biopsies were taken with acold forceps for histology. The pathology specimen was placed into Bottle Number 2. The examined duodenum was normal. Biopsies for histology were takenwith a cold forceps for evaluation of celiac disease. The pathology specimen was placed into BottleNumber 1. Impression: - Normal esophagus. Biopsied. - Normal stomach. Biopsied. - Normal examined duodenum. Biopsied. Recommendation: - Discharge patient to home (with escort). - Pathology results will be reviewed withappropriate recommendations to follow. - Return to referring physician as previouslyscheduled. Audi Rodriguez MD 07/30/2024 11:39:32 AM This report has been signed electronically. us Yuan Redd III, MD GASTRO UPPER Final Resul t * COLONOSCOPY (07/30/2024 11:13 AM EST) 07/30/2024 11:1 3 AM EST Narrative Procedure Note Yuan Redd III, MD - 07/30/2024 11:13 AM EST [facility] Patient Name: Tiffany Jaimes Procedure Date: 07/30/2024 11:13 AM Date of : 2000 Admit Type: Outpatient Note Status:Finalized Date of : 2000 Admit Type: Outpatient Age: 24 Room: Endo 3 Gender: Female Note Status: Finalized Procedure: Colonoscopy Indications: Clinically significant diarrhea of unexplainedorigin Providers: Audi Rodriguez MD (Doctor) Referring MD: Yuan Redd III, MD (Referring MD), Julita Sanderson(Referring MD) Medicines: Propofol per Anesthesia Complications: No immediate complications. Estimated blood loss:None. Procedure: Pre-Anesthesia Assessment: - - Prior to the procedure, a History and Physicalwas performed, patient medications, allergies and sensitivities were reviewed. Thepatient's tolerance of previous anesthesia was reviewed. See [facility] for furtherdetails. - The risks, benefits, and alternatives of theprocedure including the sedation options and risks were discussed with the patient.All questions were answered and informed consent was obtained. - Patient identification and proposed procedurewere verified prior to the procedure by the physician and the nurse. The procedure wasverified in the procedure room. - See [facility] for documentation of the pre-procedureassessment including ASA status. - After I obtained informed consent, the scope wascarefully and meticulously passed under direct vision only when the lumen wasdefinitively identified. CO2 insufflation was utilized throughout the entire procedureexclusively. After I obtained informed consent, the scope waspassed under direct vision. All instruments were visually inspected immediatelybefore and after removal from the patient to ensure they are fully intact. Throughout the procedure, the patient's bloodpressure, pulse, and oxygen saturations were monitored continuously.The colonoscopy wasperformed without difficulty. The patient tolerated the procedure well. The qualityof the bowel preparation was good. The PCF-H190L Colonoscope ([id number]) was introducedthrough the anus and advanced to the cecum, identified by appendiceal orifice andileocecal valve. Findings & Specimens: The terminal ileum appeared normal. A 3 mm polyp was found in the ascending colon. The polyp was sessile.The polyp was removed with a cold snare. Resection and retrieval were complete. The pathology specimenwas placed into Bottle Number 5. Multiple small-mouthed diverticula were found in the sigmoid colon. Internal hemorrhoids were found during retroflexion. Biopsies for histology were taken with a cold forceps from the entirecolon for evaluation of microscopic colitis. The pathology specimen was placed into BottleNumber 4. Impression: - The examined portion of the ileum was normal. - One 3 mm polyp in the ascending colon, removedwith a cold snare. Resected and retrieved. - Diverticulosis in the sigmoid colon. - Internal hemorrhoids. 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 Recommendation: - Discharge patient to home (with escort). - Repeat colonoscopy in 5 years for surveillance. - Return to referring physician as previouslyscheduled. - [facility] The signs and symptoms of potential delayed complications were discussed withthe patient. Return to normal activities tomorrow. Written discharge instructionswere provided to the patient. - Pathology results will be reviewed withappropriate recommendations to follow. Audi Rodriguez MD 07/30/2024 11:54:31 AM This report has been signed electronically. Yuan Redd III, MD GASTRO LOWER Final Resul t documented in this encounter Visit Diagnoses Diagnosis Diarrhea GERD (gastroesophageal reflux disease) Esophageal reflux documented in this encounter Administered Medications Inactive Administered Medications - up to 3 most recent administrations Medication Order MAR Action Action Date Dose Rate Site Isolyte-S pH 7.4 infusion Intravenous, at 100 mL/hr, Plasma-LYTE 148, isolyte-S, and isolyte-S pH 7.4 are considered equivalent - including for MAR barcode scanning., CONTINUOUS, Starting on Fri07/30/24 at 1115, Until Fri07/30/24 at 1636, Pre-Op Continue from Pre-Op 07/30/2024 11:25 AM EST 100 mL/hr New Bag 07/30/2024 11:03 AM EST 100 mL/hr documented in this encounter Active and Recently Administered Medications Times are shown in EST. Continuous Medication Order 07/28/2024 07/29/2024 07/30/2024 Isolyte-S pH 7.4 infusion Intravenous, at 100 mL/hr, Plasma-LYTE 148, isolyte-S, and isolyte-S pH 7.4 are considered equivalent - including for MAR barcode scanning., CONTINUOUS, Starting on Fri07/30/24 at 1115, Until Fri07/30/24 at 1636, Pre-Op 1103 (New Bag - Prov ider: Kaylin Muñoz EASTON)1125 (Continue from Pre-Op - Provider: Kirti Grewal CRNA)1150 (Anes Intra-Op Fluid - Provider: Kirti Grewal CRNA) documented in this encounter Care Teams Organ Fixer Relationship Specialty Start Date End Date Yuan Redd III, MD [address] [place] [address] PCP - General Family Medicine 07/15/23 documented as of this encounter
--- OUTSIDE RECORDS SUMMARY | 2024-10-21 09:12 | External Medical Summary | Summary of Care ---
Author Name Unknown Organization [facility] Address [address] [place] [address] Phone [phone] Care Team Providers Care Instructor Watch Assembly Name Role Phone Ivania CLEVELAND MD, Yuan Ya Primary Care Provider [phone] Reason for Visit * Reason Comments Depo-Provera Injection Encounter Details Date Type Department Care Team (Late st Contact Info) Description 07/09/2024 1:00 PM EST Nurse Only Gynecology/Obstetrics [facility] [address] [place] [address] Gw, Nurse Obgyn Injection [address] [facility] [place] [address] Depo-Provera Injection Allergies Active Allergy Reactions Criticality Noted Date Comments Food (See Comments) 04/30/2018 Kiwi tongue escalante documented as of this encounter (statuses as of 07/09/2024) Medications Probiotic Daily Oral Capsule Take 1 [...] Active Additional Information Patient not taking.Reported on 05/28/2024 DULoxetine HCl 20 MG Oral Capsule Delayed Release Particles (Cymbalta) Take 1 Capsule by mouth in the morning. 30 Capsule 2 4 Active LORazepam 0.5 MG Oral Tablet (Ativan) Take 1 Tablet by mouth 2 times a day as needed for Anxiety. 60 Tablet 2 4 Active lamoTRIgine 100 MG Oral Tablet (LaMICtal) Take 0.5 Tablets by mouth in the morning and 0.5 Tablets before bedtime. 30 Tablet 2 4 Active Gabapentin 300 MG Oral Capsule (Neurontin) Take 1 Capsule by mouth in the morning and 1 Capsule before bedtime. 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 04/27/2024 Generalized abdominal pain 04/27/2024 Generalized anxiety disorder 02/02/2024 PTSD (post-traumatic stress disorder) 02/02/2024 Severe episode of recurrent major depressive disorder, without psychotic features 08/13/2021 POTS (postural orthostatic tachycardia syndrome) 08/18/2019 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 Patient doing well no complaints. Injection given IM as ordered. Patient tolerated well. Patient to follow up as directed. Patient instructed to call if any complications. Patient verbalized understanding of instructions given and her follow up appt for 12 weeks. Injection site: Left Deltoid Medication Source: Dispensed stock medication documented in this encounter Plan of Treatment Upcoming Encounters Date Type Department Care Team (Latest Contact Info) Description 07/12/2024 9:00 AM EST Telemedicine Psychiatry [facility] [address] [place] [address] Ilya Stovall MD [address] [place] [address] 07/30/2024 11:15 AM EST Hospital Encounter [facility], Endoscopy Room [facility] [address] [place] [address] Audi Rodriguez MD [address] [place] [address] 07/30/2024 11:15 AM EST - 07/30/2024 12:15 PM EST Surgery [facility], [facility] [address] [place] [address] Audi Rodriguez MD [address] [place] [address] COLONOSCOPY FLEXIBLE PROXIMAL DIAGNOSTIC 10/01/2024 1:00 PM EST Nurse Only Gynecology/Obstetri [facility] [address] [place] [address] Gw, Nurse Obgyn Injection [address] [place] [address] 04/22/2025 8:00 AM EDT Office Visit Gynecology/Obstetri [facility] [address] [place] [address] Demi Jolly PA-C [address] [place] [address] Scheduled Procedures Name Priority Associated Diagnoses Date/Ti [...] 5 Years) and At-Risk Patients (6 to 64 Years) Aged Out No longer eligible based on patient's age to complete this topic documented as of this encounter Medical Devices Not on filedocumented as of this encounter Visit Diagnoses Diagnosis Depo-Provera contraceptive status- Primary Surveillance of other previously prescribed contraceptive method Diarrhea GERD (gastroesophageal reflux disease) Esophageal reflux documented in this encounter Administered Medications Active Administered Medications - up to 3 most recent administrations Medication Order MAR Action Action Date Dose Rate Site medroxyPROGESTERone (contracep) (Depo-Provera) inj 150 mg 150 mg, Intramuscular, [id number], First dose on Fri04/14/24 at 0945, Until DiscontinuedIndications:S urveillance for Depo-Provera contraception Given 07/09/2024 1:12 PM EST 150 mg Deltoid Left Upper Given 04/14/2024 9:08 AM EDT 150 mg De ltoid Left Upper documented in this encounter Care Teams Instructor Watch Assembly Relationship Specialty Start Date End Date Yuan Redd III, MD [address] [place] [address] PCP - General Family Medicine 07/15/23 documented as of this encounter
--- OUTSIDE RECORDS SUMMARY | 2024-10-21 09:12 | External Medical Summary | Summary of Care ---
Author Name Unknown Organization [facility] Address [address] [place] [address] Phone [phone] Care Team Providers Care Chief Cloth Finishing Range Operator Name Role Phone Ivania CLEVELAND MD, Yuan Ya Primary Care Provider [phone] Reason for Visit * Reason Comments Other Questionable vaginal infection Encounter Details Date Type Department Care Team (Late st Contact Info) Description 05/28/2024 9:15 AM EDT Convenient Care Visit [facility] [address] [place] [address] Monty Nair PA-C [address] [place] [address] Vaginal pain* Allergies Active Allergy Reactions Criticality Noted Date Comments Food (See Comments) 04/30/2018 Kiwi tongue escalante documented as of this encounter (statuses as of 05/28/2024) Medications Medication Sig Dispensed Refills Start Date End Date Status Probiotic Daily Oral Capsule Take 1 Cap [...] 0.5 Tablets before bedtime. 90 Tablet 3 07/24/2023 Active Ondansetron HCl 4 MG Oral Tablet Take 1 Tablet by mouth every 8 hours as needed for Nausea. Active Trospium Chloride 20 MG Oral Tablet (Sanctura) Take 1 Tablet by mouth every evening. 30 Tablet 6 04/09/2024 Active Sucralfate 1 GM Oral Tablet (Carafate) Take 1 Tablet by mouth in the morning and 1 Tablet at noon and 1 Tablet in the evening and 1 Tablet before bedtime. half an hour before meals and at bedtime. 120 Tablet 04/27/2024 Active Additional Information Patient not taking.Reported on 05/28/2024 DULoxetine HCl 20 MG Oral Capsule Delayed Release Particles (Cymbalta) Take 1 Capsule by mouth in the morning. 30 Capsule 2 05/25/2024 Active LORazepam 0.5 MG Oral Tablet (Ativan) Take 1 Tablet by mouth 2 times a day as needed for Anxiety. 60 Tablet 2 05/25/2024 Active lamoTRIgine 100 MG Oral Tablet (LaMICtal) Take 0.5 Tablets by mouth in the morning and 0.5 Tablets before bedtime. 30 Tablet 2 05/25/2024 Active Gabapentin 300 MG Oral Capsule (Neurontin) Take 1 Capsule by mouth in the morning and 1 Capsule before bedtime. 60 Capsule 2 05/25/2024 Active Fluconazole 150 MG Oral Tablet (Diflucan)Indicat ions:Vaginal pain Take 1 Tablet by mouth once for 1 dose. 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 04/27/2024 Generalized abdominal pain 04/27/2024 Generalized anxiety disorder 02/02/2024 PTSD (post-traumatic stress disorder) 02/02/2024 Severe episode of recurrent major depressive disorder, without psychotic features 08/13/2021 POTS (postural orthostatic tachycardia syndrome) 08/18/2019 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 Some college, no degree 05/05/2023 Sex and Gender Information Value Date Recorded Sex Assigned at Female 12/08/2018 8:24 AM EDT Gender Identity Female 12/08/2018 8:24 AM EDT Sexual Orientation Bisexual 12/08/2018 8: 24 AM EDT 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 Occupation Industry Not on file Not on file Not on file documented as of this encounter Last Filed Vital Signs Vital Sign Reading Time Taken Comments Blood Pressure 116/60 05/28/2024 9:11 AM EDT Pulse 87 05/28/2024 9:11 AM EDT Temperature 36.9 C (98.4 F) 05/28/2024 9:11 AM ED T Respiratory Rate 20 05/28/2024 9:11 AM EDT Oxygen Saturation 97% 05/28/2024 9:11 AM EDT Inhaled Oxygen Concentration - - Weight 82.6 kg (182 lb 3.2 oz) 05/28/2024 9:11 A M EDT Height 175.3 cm (5' 9") 05/28/2024 9:11 AM EDT Body Mass Index 26.91 05/28/2024 9:11 AM EDT documented in this encounter Progress Notes * Monty Nair PA-C - 05/28/2024 9:16 AM EDT [facility] Basic Exam Tiffany Jaimes is a 24 year old year old female who presents for evaluation of dysuria, vaginaldiscomfort, minimal yellowish discharge for 2 days. Frequent BV and yeast infection. No concern forSTDs. No back pain. Unsure on any redness on surrounding skin. Review of Systems Constitutional: Negative. HENT: Negative. Respiratory: Negative. Cardiovascular: Negative. Gastrointestinal: Negative for abdominal pain. Genitourinary: Positive for pelvic pain, vaginal discharge and vaginal pain. Negative for flank pain, menstrual problem and vaginal bleeding. Neurological: Negative. 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 Past Surgical History: Procedure Laterality Date DENTAL SURGERY PROCEDURE NEC GRAFT EAR CARTILAGE TO NOSE/EAR N/A 03/06/2019 GRAFT EAR CARTILAGE TO EAR OR NOSE performed by Delia Lezama MD at [facility] NASAL SEPTUM CARTILAGE FOR GRAFT N/A 03/06/2019 OBTAIN CARTILAGE GRAFT NASAL SEPTUM performed by Delia Lezama MD at [facility] RECONSTRUCTION OF NOSE/SEPTUM N/A 03/06/2019 RHINOPLASTY COMPLETE INCLUDING MAJOR SEPTAL REPAIR performed by Delia Lezama MD at [facility] REMOVAL OF TURBINATE BONES N/A 03/06/2019 EXCISION INFERIOR TURBINATE performed by Delia Lezama MD at [facility] REMOVE RIB CARTILAGE FOR GRAFT N/A 03/06/2019 OBTAIN CARTILAGE GRAFT COSTOCHONDRAL performed by Delia Lezama MD at OR [facility] Social History Tobacco Use Smoking status: Never Smokeless tobacco: Never Substance Use Topics Alcohol use: Yes Alcohol/week: 2.0 standard drinks of alcohol Types: 2 12 oz of beer per week Comment: maybe once a week Vaping/E-Cigarette Use Vaping/E-Cigarette Use Never User Vaping/E-Cigarette Substances Nicotine No Other No Flavoring No THC No Cannabidiol (CBD) No Vaping/E-Cigarette Devices Disposable No Pre-filled or Refillable Cartridge No Refillable Tank No Pre-filled Pod No Patient Active Problem List Diagnosis Chuck-Danlos syndrome POTS (postural orthostatic tachycardia syndrome) Severe episode of recurrent major depressive disorder, without psychotic features (HCC) Generalized anxiety disorder PTSD (post-traumatic stress disorder) Epigastric pain Current severe episode of major depressive disorder with psychotic features (HCC) Generalized abdominal pain Review of patient's allergies indicates: Allergen Reactions Food (See Comments) Kiwi tongue escalante Current Outpatient Medications Medication Sig Dispense Refill Probiotic Daily Oral Capsule Take 1 Cap by mouth daily. One-A-Day Womens 50+ Advantage Oral Tablet Take 1 Tablet by mouth in the morning. Omeprazole 40 MG Oral Capsule Delayed Release (PriLOSEC) Take 1 Capsule by mouth in the morning. Metoprolol Succinate ER 100 MG Oral Tablet Extended Release 24 Hour (Toprol XL) Take 0.5 Tablets bymouth in the morning and 0.5 Tablets before bedtime. 90 Tablet 3 Trospium Chloride 20 MG Oral Tablet (Sanctura) Take 1 Tablet by mouth every evening. 30 Tablet 6 DULoxetine HCl 20 MG Oral Capsule Delayed Release Particles (Cymbalta) Take 1 Capsule by mouth in the morning. 30 Capsule 2 LORazepam 0.5 MG Oral Tablet (Ativan) Take 1 Tablet by mouth 2 times a day as needed for Anxiety. 60 Tablet 2 lamoTRIgine 100 MG Oral Tablet (LaMICtal) Take 0.5 Tablets by mouth in the morning and 0.5 Tablets before bedtime. 30 Tablet 2 Gabapentin 300 MG Oral Capsule (Neurontin) Take 1 Capsule by mouth in the morning and 1 Capsule before bedtime. 60 Capsule 2 Ondansetron HCl 4 MG Oral Tablet Take 1 Tablet by mouth every 8 hours as needed for Nausea. (Patient not taking: Reported on 04/14/2024) Sucralfate 1 GM Oral Tablet (Carafate) Take 1 Tablet by mouth in the morning and 1 Tablet at noon and 1 Tablet in the evening and 1 Tablet before bedtime. half an hour before meals and at bedtime. (Patient not taking: Reported on 05/28/2024) 120 Tablet 0 Current Facility-Administered Medications Medication Dose Route Frequency Provider Last Rate Last Admin medroxyPROGESTERone (contracep) (Depo-Provera) inj 150 mg 150 mg Intramuscular Q90 Days 150 mg at 04/14/24 0908 Nursing Notes and Vital Signs reviewed. BP 116/60 | Pulse 87 | Temp 36.9 C (98.4 F) (Tympanic) | Resp 20 | Ht 1.753 m (5' 9") | Wt 82.6kg (182 lb 3.2 oz) | SpO2 97% | BMI 26.91 kg/m | BSA 2.01 m Physical Exam Vitals and nursing note reviewed. Exam conducted with a home lending officer present. Constitutional: Appearance: Normal appearance. HENT: Head: Normocephalic. Nose: Nose normal. Mouth/Throat: Mouth: Mucous membranes are moist. Eyes: Extraocular Movements: Extraocular movements intact. Conjunctiva/sclera: Conjunctivae normal. Pulmonary: Effort: Pulmonary effort is normal. Genitourinary: General: Normal vulva. Pubic Area: No rash. Vagina: Vaginal discharge (thin and white) and tenderness present. No erythema. Musculoskeletal: General: Normal range of motion. Cervical back: Normal range of motion and neck supple. Skin: General: Skin is warm. Neurological: General: No focal deficit present. Mental Status: She is alert and oriented to person, place, and time. Psychiatric: Mood and Affect: Mood normal. ASSESSMENT: Vaginal pain (Primary) - VAGINOSIS PANEL, PCR; Future; Expected date: 05/28/2024 - Fluconazole 150 MG Oral Tablet (Diflucan); Take 1 Tablet by mouth once for 1 dose. - VAGINOSIS PANEL, PCR Go to ER with any concerning changes, including inability to void, worsening pain. Return or make appointment with PCP if no improvement within 3-5 days. Monty Nair PA-C [address] [address] documented in this encounter Nursing Notes * Michelle Corcoran LPN - 05/28/2024 9:10 AM EDT Tiffany Jaimes is a 24 year old female who presents to walk-in clinic today complaining of Chief Complaint Patient presents with Other Questionable vaginal infection Brief history:questionable vaginal infection Onset/duration 2 days. Tried nothing Patient is accompanied by no one for today's visit. documented in this encounter Plan of Treatment Upcoming Encounters Date Type Department Care Team (Latest Contact Info) Description 07/07/2024 10:00 AM EST Office Visit Urology, [facility] [address] [place] [address] Sumaya Alonso PA-C [address] [place] [address] 07/09/2024 1:00 PM EST Nurse Only Gynecology/Obstetri [facility] [address] [place] [address] Gw, Nurse Obgyn Injection [address] [place] [address] 07/12/2024 9:00 AM EST Telemedicine Psychiatry [facility] [address] [place] [address] Ilya Stovall MD [address] [place] [address] 07/30/2024 11:15 AM EST Hospital Encounter ENDO [facility], Endoscopy Room [facility] [address] [place] [address] Audi Rodriguez MD [address] [place] [address] 07/30/2024 11:15 AM EST - 07/30/2024 12:15 PM EST Surgery ENDO [facility], Endoscopy Room [facility] [address] [place] [address] Audi Rodriguez MD [address] [place] [address] COLONOSCOPY FLEXIBLE PROXIMAL DIAGNOSTIC 04/22/2025 8:00 AM EDT Office Visit Gynecology/Obstetri [facility] [address] [place] [address] Demi Jolly PA-C [address] [place] [address] Pending Results Name Type Priority Associated Diagnoses Date /Time VAGINOSIS PANEL, PCR Lab Routine Vaginal pain 05/28/2024 9:25 AM EDT Scheduled Orders Name Type Priority Associated Diagnoses Orde r Schedule VAGINOSIS PANEL, PCR Lab Routine Vaginal pain Expected: 05/28/2024, Expires: 05/28/2025 Scheduled Procedures Name Priority Associated Diagnoses Date/Ti [...] as of this encounter Visit Diagnoses Diagnosis Vaginal pain- Primary Unspecified symptom associated with female genital organs Diarrhea GERD (gastroesophageal reflux disease) Esophageal reflux documented in this encounter Care Teams Chief Cloth Finishing Range Operator Relationship Specialty Start Date End Date Yuan Redd III, MD [address] [facility] [place] [address] PCP - General Family Medicine 07/15/23 documented as of this encounter
--- OUTSIDE RECORDS SUMMARY | 2024-10-21 09:12 | External Medical Summary | Summary of Care ---
Author Name Unknown Organization [facility] Address [address] [place] [address] Phone [phone] Care Team Providers Care Bag Checker Name Role Phone Ivania CLEVELAND MD, Yuan Ya Primary Care Provider [phone] Reason for Visit * Reason Comments Follow Up * - Authorized Specialty Diagnoses / Procedures Referred By Luis F t Referred To Contact Referral ID Status Reason Start Date Expiration Date V isits Requested Visits Authorized [id number] Authorized 03/28/2024 03/27/[phone] Encounter Details Date Type Department Care Team (Late st Contact Info) Description 07/12/2024 9:00 AM EST Telemedicine Psychiatry [place] [address] [place] [address] Ilya Stovall MD [address] [place] [address] SHLOMO (generalized anxiety disorder)*; PTSD (post-traumatic stress disorder); Binge eating Allergies Active Allergy Reactions Criticality Noted Date Comments Food (See Comments) 04/30/2018 Kiwi tongue escalante documented as of this encounter (statuses as of 07/12/2024) Medications Probiotic Daily Oral Capsule Take 1 [...] Additional Information Patient not taking.Reported on 05/28/2024 lamoTRIgine 100 MG Oral Tablet (LaMICtal) Take [...] for Anxiety. 60 Tablet 2 4 Active DULoxetine HCl 20 MG Oral Capsule Delayed Release Particles (Cymbalta) Take 1 Capsule by mouth in the morning. 30 Capsule 2 4 07/12/20 24 Discontin ued(Refil l) LORazepam 0.5 MG Oral Tablet (Ativan) Take 1 Tablet by mouth 2 times a day as needed for Anxiety. 60 Tablet 2 4 07/12/20 24 Discontin ued(Refil l) lamoTRIgine 100 MG Oral Tablet (LaMICtal) Take 0.5 Tablets by mouth in the morning and 0.5 Tablets before bedtime. 30 Tablet 2 4 07/12/20 24 Discontin ued(Refil l) Gabapentin 300 MG Oral Capsule (Neurontin) Take 1 Capsule by mouth in the morning and 1 Capsule before bedtime. 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 04/27/2024 Generalized abdominal pain 04/27/2024 Generalized anxiety disorder 02/02/2024 PTSD (post-traumatic stress disorder) 02/02/2024 Severe episode of recurrent major depressive disorder, without psychotic features 08/13/2021 POTS (postural orthostatic tachycardia syndrome) 08/18/2019 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 documented as of this encounter (statuses as of 07/12/2024) Resolved Problems Problem Noted Date Diagnosed Date Resolved Date 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 02/20/2021 documented as of this encounter (statuses as of 07/12/2024) Immunizations Name Administration Dates Next Due COVID-19 [...] Industry 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 Job End Date 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 I was not in a hospital or clinic location. After connecting through [employer], patient was verified with two unique identifiers. Patient (or authorized legal players club representative) was then informed that this was a Telemedicine visit and being conducted confidentially over secure lines. Methods to assure confidentiality were taken. Patient acknowledged consent and understanding of privacy and security of the Telemedicine visit. The patient agreed to participate. CC: f/u for IOP medication management and psychotherapy INTERVAL HISTORY: 07/12/24 - She had sent a message [...] She has been attending individual psychotherapy with [facility]. She typically takes one PRN Ativan daily, rarely takes the available second dose. Medication adherence: as above Reported medication side effects: denies any that she has noticed She denies suicidal ideation and denies passive wish. No manic symptoms, psychotic symptoms, AH, or [...] were given to her by her mother Phillips Suicide Severity Rating Scale Results 07/12/2024 09:11 COLUMBIA SUICIDE SEVERITY RATING SCALE (C-SSRS) Have you wished you were or wished you could go to sleep and not wake up? (In the Past Month or Since Last Visit) No Have you had any actual thoughts of [...] 3 months? No Level of Risk Moderate Hx from Previous Appts 05/25/24 - She says that things have [...] started weekly in-person individualpsychotherapy with Rosmery at [facility]. 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 She says she was having [...] of this year. She will work for [employer] after this. She shares that she expects [...] drinks per week. Remains abstinent from THC. IOP COURSE 07/29/23 - Pt reports she stopped [...] 1-2x per day. 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 She reports she [...] go to the gym. Anticipated discharge from [facility] on FridayJun 27. She has multiple items [...] out of her apartment. Anticipated d/c from [facility] on 06/27/23. Prazosin continues to be helpful [...] 0.5 Tablets before bedtime. 90 Tablet 3 Ondansetron HCl 4 MG Oral Tablet Take 1 Tablet by mouth every 8 hours as needed for Nausea. (Patient not taking: Reported on 04/14/2024) Trospium Chloride 20 MG Oral Tablet (Sanctura) Take 1 Tablet by mouth every evening. 30 Tablet 6 Sucralfate 1 GM Oral Tablet (Carafate) Take 1 Tablet by mouth in the morning and 1 Tablet at noon and 1 Tablet in the evening and 1 Tablet before bedtime. half an hour before meals and at bedtime. (Patient not taking: Reported on 05/28/2024) 120 Tablet 0 DULoxetine HCl 20 MG Oral Capsule Delayed [...] 1 Capsule before bedtime. 60 Capsule 2 Current Facility-Administered Medications Medication Dose Route Frequency Provider Last Rate Last Admin medroxyPROGESTERone (contracep) (Depo-Provera) inj 150 mg 150 mg Intramuscular Q90 Days 150 mg at 07/09/24 1312 RECENT LABS/IMAGING: No results found for this or any previous visit (from the past 4 weeks). VITALS There were no vitals filed for this visit. Wt Readings from Last 3 Encounters: 05/28/24 82.6 kg (182 lb 3.2 oz) 04/14/24 83.5 kg (184 lb) 03/27/24 81.6 kg (180 lb) There is no height or weight on [...] 0.5 Tablets before bedtime. 90 Tablet 3 Ondansetron HCl 4 MG Oral Tablet Take 1 Tablet by mouth every 8 hours as needed for Nausea. (Patient not taking: Reported on 04/14/2024) Trospium Chloride 20 MG Oral Tablet (Sanctura) Take 1 Tablet by mouth every evening. 30 Tablet 6 Sucralfate 1 GM Oral Tablet (Carafate) Take 1 Tablet by mouth in the morning and 1 Tablet at noon and 1 Tablet in the evening and 1 Tablet before bedtime. half an hour before meals and at bedtime. (Patient not taking: Reported on 05/28/2024) 120 Tablet 0 DULoxetine HCl 20 MG Oral Capsule Delayed [...] 1 Capsule before bedtime. 60 Capsule 2 Current Facility-Administered Medications Medication Dose Route Frequency Provider Last Rate Last Admin medroxyPROGESTERone (contracep) (Depo-Provera) inj 150 mg 150 mg Intramuscular Q90 Days 150 mg at 07/09/24 1312 FAMILY HISTORY: Family History Problem Relation Name Age of Onset Anemia Mother Other (Other) Mother erlos danlos colon polyps Bipolar Disorder Mother Bipolar Disorder Father Dementia Father early onset Depression Brother Other (Other) Brother Breanna ehrlokayla danlos Bipolar Disorder Brother Breanna Alzheimer's disease Grandmother [...] thoughts as per the interval history and Phillips screen above. Attention/Concentration: Without evident gross deficits. Not easily distracted during clinical interview. Memory: Grossly intact for recent/remote events. Not formally tested. Insight: Intact. Judgment: Intact. ASSESSMENT AND PLAN: 23 y/o F treated in [facility] in 2022. She has followed with me [...] importance of consistent adherence to herpsychotropic medications. Since April 2024 she has been following with Rosmery from [facility] for individual psychotherapy. Medications: - continue duloxetine 20mg daily. Monitor appetite and weight. She was counseled about the boxed warning for suicidal [...] as prescribed. PDMP checked with no concerning findings. - continue gabapentin 300mg BID Past Psychotropic [...] ineffective or too-sedating, depending on the dose Contraception (Women of Childbearing Age): Depo-Provera Monitoring: - no new labs ordered today Psychotherapy (88875) No add-on psychotherapy today Treatment options and alternatives reviewed with patient [...] to the urgency and severityof symptoms. Tiffany Placido NajeraTheodore was able to verbalize understanding of the steps necessary to obtain help between appointments should be needed, from requesting a phone call, to requesting an appointment sooner, including reaching clinic after hours, accessing our system, and accessing emergency mental health and medical services, either at a local emergency department or by activating mobile crisis teams andEMS. Ilya Stovall MD Psychiatrist [facility] [phone] 07/12/2024 documented in this encounter Plan of Treatment Upcoming Encounters Date Type Department Care Team (Latest Contact Info) Description 07/30/2024 11:15 AM EST Hospital Encounter ENDO [facility], Endoscopy Room [facility] [address] [place] [phone] Audi Rodriguez MD [address] [place] [address] 07/30/2024 11:15 AM EST - 07/30/2024 12:15 PM EST Surgery ENDO [facility], Endoscopy Room [facility] [address] [place] [address] Audi Rodriguez MD [address] [place] [address] COLONOSCOPY FLEXIBLE PROXIMAL DIAGNOSTIC 09/16/2024 1:30 PM EST Telemedicine Psychiatry Teresa [place] [address] [place] [address] Ilya Stovall MD [address] [address] 10/01/2024 1:00 PM EST Nurse Only Gynecology/Obstetri melecio Dominguezs [address] [place] [address] Gw, Nurse Obgyn Injection [address] [place] [address] 04/22/2025 8:00 AM EDT Office Visit Gynecology/Obstetri melecio Hernandez [address] [place] [address] Demi Jolly PA-C [address] [place] [address] Scheduled Procedures Name Priority Associated Diagnoses Date/Ti [...] as of this encounter Visit Diagnoses Diagnosis SHLOMO (generalized anxiety disorder)- Primary Generalized anxiety disorder PTSD (post-traumatic stress disorder) Posttraumatic stress disorder Binge eating Polyphagia Diarrhea GERD (gastroesophageal reflux disease) Esophageal reflux documented in this encounter Care Teams Bag Checker Relationship Specialty Start Date End Date Yuan Redd III, MD [address] [facility] [place] [address] PCP - General Family Medicine 07/15/23 documented as of this encounter
--- OUTSIDE RECORDS SUMMARY | 2024-10-21 09:12 | External Medical Summary | Summary of Care ---
Author Name Unknown Organization [facility] Address [address] [place] [address] Phone [phone] Care Team Providers Care Tellers Supervisor Name Role Phone Ivania CLEVELAND MD, Yuan Ya Primary Care Provider [phone] Reason for Visit * Reason Comments Follow Up * - Authorized Specialty Diagnoses / Procedures Referred By Luis F t Referred To Contact Referral ID Status Reason Start Date Expiration Date V isits Requested Visits Authorized [id number] Authorized 03/28/2024 03/27/[phone] Encounter Details Date Type Department Care Team (Late st Contact Info) Description 05/25/2024 4:00 PM EDT Telemedicine Psychiatry [facility] [place] [address] [place] [address] Ilya Stovall MD [address] [place] [address] SHLOMO (generalized anxiety disorder)*; PTSD (post-traumatic stress disorder); Binge eating Allergies Active Allergy Reactions Criticality Noted Date Comments Food (See Comments) 04/30/2018 Kiwi tongue escalante documented as of this encounter (statuses as of 05/25/2024) Medications Medication Sig Dispensed Refills Start Date [...] and at bedtime. 120 Tablet 04/27/2024 Active DULoxetine HCl 20 MG Oral Capsule [...] before bedtime. 60 Capsule 2 05/25/2024 Active hydrOXYzine HCl 25 MG Oral TabletIndications :SHLOMO (generalized anxiety disorder) Take 1 Tablet by mouth every 8 hours as needed for Anxiety. 60 Tablet 1 10/16/2023 05/25/2024 Discontinued (Patient preference/d iscontinuati on) Gabapentin 300 MG Oral Capsule (Neurontin) Take 1 Capsule by mouth in the morning and 1 Capsule before bedtime. 60 Capsule 1 03/31/2024 05/25/2024 Discontinued (Refill) LORazepam 0.5 MG Oral Tablet (Ativan) Take 1 Tablet by mouth 2 times a day as needed for Anxiety. 30 Tablet 1 04/06/2024 05/25/2024 Discontinued (Refill) lamoTRIgine 100 MG Oral Tablet (LaMICtal) Take 0.5 Tablets by mouth in the morning and 0.5 Tablets before bedtime. 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 04/27/2024 Generalized abdominal pain 04/27/2024 Generalized anxiety disorder 02/02/2024 PTSD (post-traumatic stress disorder) 02/02/2024 Severe episode of recurrent major depressive disorder, without psychotic features 08/13/2021 POTS (postural orthostatic tachycardia syndrome) 08/18/2019 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 I was not in a hospital or clinic location. After connecting through televideo, patient was verified with two unique identifiers. Patient (or authorized legal financial services representative) was then informed that this was a Telemedicine visit and being conducted confidentially over secure lines. Methods to assure confidentiality were taken. Patient acknowledged consent and understanding of privacy and security of the Telemedicine visit. The patient agreed to participate. CC: f/u for IOP medication management and psychotherapy INTERVAL HISTORY: 05/25/24 - She says that things have [...] started weekly in-person individualpsychotherapy with Rosmery at [facility]. Medication adherence: as above Reported medication side effects: denies She denies suicidal ideation and denies passive wish. No manic symptoms, psychotic symptoms, AH, or VH elicited. 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 She says she was having [...] sheis doing better since coming home from th ED. She is taking Ativan more often, [...] of this year. She will work for [employer] after this. She shares that she expects [...] 1-2x per day. 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 She reports she [...] go to the gym. Anticipated discharge from [facility] on FridayJun 27. She has multiple items [...] out of her apartment. Anticipated d/c from [facility] on 06/27/23. Prazosin continues to be helpful [...] 0.5 Tablets before bedtime. 90 Tablet 3 hydrOXYzine HCl 25 MG Oral Tablet Take 1 Tablet by mouth every 8 hours as needed for Anxiety. 60 Tablet 1 Ondansetron HCl 4 MG Oral Tablet Take 1 Tablet by mouth every 8 hours as needed for Nausea. (Patient not taking: Reported on 04/14/2024) Gabapentin 300 MG Oral Capsule (Neurontin) Take 1 Capsule by mouth in the morning and 1 Capsule before bedtime. 60 Capsule 1 LORazepam 0.5 MG Oral Tablet (Ativan) Take 1 Tablet by mouth 2 times a day as needed for Anxiety. 30 Tablet 1 lamoTRIgine 100 MG Oral Tablet (LaMICtal) Take 0.5 Tablets by mouth in the morning and 0.5 Tablets before bedtime. 30 Tablet 2 Trospium Chloride 20 MG Oral Tablet (Sanctura) Take 1 Tablet by mouth every evening. 30 Tablet 6 Sucralfate 1 GM Oral Tablet (Carafate) Take 1 Tablet by mouth in the morning and 1 Tablet at noon and 1 Tablet in the evening and 1 Tablet before bedtime. half an hour before meals and at bedtime. 120 Tablet 0 Current Facility-Administered Medications Medication Dose Route Frequency Provider Last Rate Last Admin medroxyPROGESTERone (contracep) (Depo-Provera) inj 150 mg 150 mg Intramuscular Q90 Days 150 mg at 04/14/24 0908 RECENT LABS/IMAGING: No results found for this or any previous visit (from the past 672 hour(s)). VITALS There were no vitals filed for this visit. Wt Readings from Last 3 Encounters: 04/14/24 83.5 kg (184 lb) 03/27/24 81.6 kg (180 lb) 03/27/24 84.6 kg (186 lb 6.4 oz) There is no height or weight [...] 0.5 Tablets before bedtime. 90 Tablet 3 hydrOXYzine HCl 25 MG Oral Tablet Take 1 Tablet by mouth every 8 hours as needed for Anxiety. 60 Tablet 1 Ondansetron HCl 4 MG Oral Tablet Take 1 Tablet by mouth every 8 hours as needed for Nausea. (Patient not taking: Reported on 04/14/2024) Gabapentin 300 MG Oral Capsule (Neurontin) Take 1 Capsule by mouth in the morning and 1 Capsule before bedtime. 60 Capsule 1 LORazepam 0.5 MG Oral Tablet (Ativan) Take 1 Tablet by mouth 2 times a day as needed for Anxiety. 30 Tablet 1 lamoTRIgine 100 MG Oral Tablet (LaMICtal) Take 0.5 Tablets by mouth in the morning and 0.5 Tablets before bedtime. 30 Tablet 2 Trospium Chloride 20 MG Oral Tablet (Sanctura) Take 1 Tablet by mouth every evening. 30 Tablet 6 Sucralfate 1 GM Oral Tablet (Carafate) Take 1 Tablet by mouth in the morning and 1 Tablet at noon and 1 Tablet in the evening and 1 Tablet before bedtime. half an hour before meals and at bedtime. 120 Tablet 0 Current Facility-Administered Medications Medication Dose Route Frequency Provider Last Rate Last Admin medroxyPROGESTERone (contracep) (Depo-Provera) inj 150 mg 150 mg Intramuscular Q90 Days 150 mg at 04/14/24 0908 FAMILY HISTORY: Family History Problem Relation Name [...] in volume, rhythm, rate. Mood & Affect: "I'm alright. I'm dealing with some increased anxiety and wondering if my medication needs to be adjusted." Affect appeared somewhat constricted but overall calm. Polite and pleasant in rapport. Associations: Intact, without loosening Thought Process: Logical, linear, goal-oriented. Thought Content: No sx of psychosis evident. Denies homicidal ideation. Suicidal thoughts as per the interval history and Lassen screen above. Attention/Concentration: Without evident gross deficits. Not easily distracted during clinical interview. Memory: Grossly intact for recent/remote events. Not formally tested. Insight: Intact. Judgment: Intact. ASSESSMENT AND PLAN: 23 y/o F treated in [facility] in 2022. She has followed with me [...] she has been following with Rosmery from [facility] for individual psychotherapy. Medications: - start duloxetine 20mg daily. She was counseled about the boxed warning [...] the dose Contraception (Women of Childbearing Age): - Depo-Provera 06/04/23 Monitoring: - no new labs ordered today Psychotherapy ([id number]) No add-on psychotherapy today Dispo: - continue longitudinal care for now - f/u in 6-8 weeks Treatment options and alternatives reviewed with patient [...] crisis teams andEMS. Ilya Stovall MD Psychiatrist [phone] 05/25/2024 documented in this encounter Plan of Treatment Upcoming Encounters Date Type Department Care Team (Latest Contact Info) Description 07/07/2024 10:00 AM EST Office Visit Urology, [facility] [address] [place] [address] Sumaya Alonso PA-C [address] [place] [address] 07/09/2024 1:00 PM EST Nurse Only Gynecology/Obstetri [facility] [address] [facility] [place] [address] Gw, Nurse Obgyn Injection [address] [facility] [place] [address] 07/12/2024 9:00 AM EST Telemedicine Psychiatry Teresa Valdivia [address] [place] [address] Ilya Stovall MD [address] [place] [address] 07/30/2024 11:15 AM EST Hospital Encounter ENDO [facility], Endoscopy Room [facility] [address] [place] [address] Audi Rodriguez MD [address] [place] [address] 07/30/2024 11:15 AM EST - 07/30/2024 12:15 PM EST Surgery ENDO [facility], Endoscopy Room [facility] [address] [place] [address] Audi Rodriguez MD [address] [place] [address] COLONOSCOPY FLEXIBLE PROXIMAL DIAGNOSTIC 04/22/2025 8:00 AM EDT Office Visit Gynecology/Obstetri Tracy Hernandez [address] [place] [address] Demi Jolly PA-C [address] [place] [address] Scheduled Procedures Name Priority Associated Diagnoses Date/Ti [...] reflux documented in this encounter Care Teams Tellers Supervisor Relationship Specialty Start Date End Date Yuan Redd III, MD [address] [facility] [place] [address] PCP - General Family Medicine 07/15/23 documented as of this encounter
--- OUTSIDE RECORDS SUMMARY | 2024-10-21 09:12 | External Medical Summary | Summary of Care ---
Author Name Unknown Organization [facility] Address [address] [place] [address] Phone [phone] Care Team Providers Care Truck Driver Heavy Name Role Phone Ivania CLEVELAND MD, Yuan Ya Primary Care Provider [phone] Reason for Visit * Reason Comments eRx-Medication Refill Encounter Details Date Type Department Care Team (Late st Contact Info) Description 08/14/2024 Refill Cardiology, [facility] [address] [facility] [place] [address] Ema Cuellar PA-C [address] [place] [address] Allergies Active Allergy Reactions Criticality Noted Date Comments Food (See Comments) 04/30/2018 Kiwi tongue escalante documented as of this encounter (statuses as of 08/19/2024) Medications Probiotic Daily Oral Capsule Take 1 Cap by mouth daily. Active One-A-Day Womens 50+ Advantage Oral Tablet Take 1 Tablet by mouth in the morning. Active Ondansetron HCl 4 MG Oral Tablet Take 1 Tablet by mouth every 8 hours as needed for Nausea. Active Trospium Chloride 20 MG Oral Tablet (Sanctura) Take 1 Tablet by mouth every evening. 30 Tablet 6 04/09/20 24 Active lamoTRIgine 100 MG Oral Tablet (LaMICtal) [...] 30 Capsule 3 07/30/2024 12:37 PM EST 07/30/19 25 Active Metoprolol Succinate ER 100 MG Oral Tablet Extended Release 24 Hour (toPROL XL) Take 1/2 (one-half) tablet by mouth twice daily 90 Tablet 08/16/19 25 Active Metoprolol Succinate ER 100 MG Oral Tablet Extended Release 24 Hour (Toprol XL) Take 0.5 Tablets by mouth in the morning and 0.5 Tablets before bedtime. 90 Tablet 3 07/24/20 23 025 Discontinued Sucralfate 1 GM Oral Tablet (Carafate) Take 1 Tablet by mouth in the morning and 1 Tablet at noon and 1 Tablet in the evening and 1 Tablet before bedtime. half an hour before meals and at bedtime. 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 04/27/2024 Generalized abdominal pain 04/27/2024 Generalized anxiety disorder 02/02/2024 PTSD (post-traumatic stress disorder) 02/02/2024 Severe episode of recurrent major depressive disorder, without psychotic features 08/13/2021 POTS (postural orthostatic tachycardia syndrome) 08/18/2019 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 regarding patient needing an appointment. Patient was notified. Successfully contacted patient and provided [facility] message. * Telephone Encounter - Anatoliy Arroyo RPh - 08/16/2024 10:38 AM ESTSigned Prescriptions: Disp Refills Metoprolol Succinate ER 100 MG Oral Tablet*90 Tab*0 Sig: Take 1/2 (one-half) tablet by mouth twice daily Authorizing Provider: EMA CUELLAR Ordering User: ANATOILY ARROYO * Telephone Encounter - Anatoliy Arroyo RPh - 08/16/2024 10:35 AM EST Please contact patient so that an appointment can be scheduled with her CARDIOLOGY provider. Refillauthorized to hold patient over in the mean time. Last Visit: 07/24/2023 (in office), Visit date not found (telemedicine) Next Visit: Visit date not found Anatoliy Camp, PharmD Clinical Pharmacist [facility] 08/16/2024, 10:37 AM documented in this encounter Plan of Treatment Upcoming Encounters Date Type Department Care Team (Late st Contact Info) Description 09/16/2024 1:30 PM EST Telemedicine Psychiatry Teresa Valdivia [address] [place] [address] Ilya Stovall MD [address] [place] [phone] 10/01/2024 1:00 PM EST Nurse Only Gynecology/Obstetrics [facility] [address] [facility] [place] [address] Gw, Nurse Obgyn Injection [address] [facility] [place] [address] 12/10/2024 3:00 PM EDT Office Visit Cardiology, [facility] [address] [place] [address] Ema Cuellar PA-C [address] [place] [address] [place] [address] 04/22/2025 8:00 AM EDT Office Visit Gynecology/Obstetrics [facility] [address] [place] [address] Demi Jolly PA-C [address] [facility] [place] [address] Scheduled Procedures Name Priority Associated Diagnoses Date/Ti [...] filedocumented as of this encounter Care Teams Truck Driver Heavy Relationship Specialty Start Date End Date Yuan Redd III, MD [address] [facility] [place] [address] PCP - General Family Medicine 07/15/23 documented as of this encounter
--- OUTSIDE RECORDS SUMMARY | 2024-10-21 09:12 | External Medical Summary | Summary of Care ---
Author Name Unknown Organization [facility] Address [address] [place] [address] Phone [phone] Care Team Providers Care Sr. Director Name Role Phone Ivania CLEVELAND MD, John E Primary Care Provider [phone] Encounter Details Date Type Department Care Team (Late st Contact Info) Description 08/16/2024 Refill Family Practice [facility] [address] [facility] [place] [address] Óscar Foster III, MD [address] [place] [address] Allergies Active Allergy Reactions Criticality Noted Date Comments Food (See Comments) 04/30/2018 Kiwi tongue escalante documented as of this encounter (statuses as of 08/17/2024) Medications Probiotic Daily Oral Capsule Take 1 [...] every evening. 30 Tablet 6 4 Active lamoTRIgine 100 MG Oral Tablet [...] daily 90 Tablet 5 Active Sucralfate 1 GM Oral Tablet (Carafate) Take 1 Tablet by mouth in the morning and 1 Tablet at noon and 1 Tablet in the evening and 1 Tablet before bedtime. half an hour before meals and at bedtime. 120 Tablet 5 Active Sucralfate 1 GM Oral Tablet (Carafate) Take 1 Tablet by mouth in the morning and 1 Tablet at noon and 1 Tablet in the evening and 1 Tablet before bedtime. half an hour before meals and at bedtime. 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 04/27/2024 Generalized abdominal pain 04/27/2024 Generalized anxiety disorder 02/02/2024 PTSD (post-traumatic stress disorder) 02/02/2024 Severe episode of recurrent major depressive disorder, without psychotic features 08/13/2021 POTS (postural orthostatic tachycardia syndrome) 08/18/2019 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 [address] [place] [address] Gw, Nurse Obgyn Injection [address] [place] [address] 04/22/2025 8:00 AM EDT Office Visit Gynecology/Obstetrics [facility] [address] [place] [address] Demi Jolly PA-C [address] [place] [address] Scheduled Procedures Name Priority Associated Diagnoses Date/Ti [...] filedocumented as of this encounter Care Teams Sr. Director Relationship Specialty Start Date End Date Óscar Foster III, MD [address] [place] [address] PCP - General Family Medicine 07/15/23 documented as of this encounter
--- OUTSIDE RECORDS SUMMARY | 2024-10-21 09:12 | External Medical Summary | Summary of Care ---
Author Name Unknown Organization [facility] Address [address] [place] [address] Phone [phone] Care Team Providers Care Carton Inspector Name Role Phone Ivania CLEVELAND MD, John E Primary Care Provider [phone] Reason for Visit * Reason Onset Date Comments Medical Records Request 06/01/2024 Encounter Details Date Type Department Care Team (Late st Contact Info) Description 06/01/2024 Telephone Family Practice [facility] [address] [place] [address] Yuan Redd III, MD [address] [place] [address] Medical Records Request Allergies Active Allergy Reactions Criticality Noted Date Comments Food (See Comments) 04/30/2018 Kiwi tongue escalante documented as of this encounter (statuses as of 06/01/2024) Medications Medication Sig Dispensed Refills Start Date [...] before bedtime. 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 04/27/2024 Generalized abdominal pain 04/27/2024 Generalized anxiety disorder 02/02/2024 PTSD (post-traumatic stress disorder) 02/02/2024 Severe episode of recurrent major depressive disorder, without psychotic features 08/13/2021 POTS (postural orthostatic tachycardia syndrome) 08/18/2019 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 Request forwarded to [facility] ([id number]) via [employer]. documented in this encounter Plan of Treatment Upcoming Encounters Date Type Department Care Team (Latest Contact Info) Description 07/07/2024 10:00 AM EST [facility] [address] [place] [address] Sumaya Alonso PA-C [address] [place] [address] 07/09/2024 1:00 PM EST Nurse Only Gynecology/Obstetri [facility] [address] [place] [address] Gw, Nurse Obgyn Injection [address] [facility] [place] [address] 07/12/2024 9:00 AM EST Telemedicine Psychiatry Teresa Valdivia [address] [place] [phone] Ilya Stovall MD [address] [place] [phone] 07/30/2024 11:15 AM EST Hospital Encounter [facility], Endoscopy Room [facility] [address] [place] [phone] Audi Rodriguez MD [address] [place] [address] 07/30/2024 11:15 AM EST - 07/30/2024 12:15 PM EST Surgery ENDO [facility], Endoscopy Room [facility] [address] [place] [phone] Audi Rodriguez MD [address] [place] [address] COLONOSCOPY FLEXIBLE PROXIMAL DIAGNOSTIC 04/22/2025 8:00 AM EDT Office Visit Gynecology/Obstetri [facility] [address] [place] [address] Demi Jolly PA-C [address] [place] [address] Scheduled Procedures Name Priority Associated Diagnoses Date/Ti [...] filedocumented as of this encounter Care Teams Carton Inspector Relationship Specialty Start Date End Date [place] Yuan CLEVELAND MD [address] [place] [address] PCP - General Family Medicine 07/15/23 documented as of this encounter
--- OUTSIDE RECORDS SUMMARY | 2024-10-21 09:12 | External Medical Summary ---
Author Name Unknown Address Unknown Organization [id number]:[facility] - [address] [facility] [address] Laboratory Report Ordering Provider Test Date Status VALFLETCHERLAGOS 05/28/2024 09:25:14 Final Observation Date Value Abnormality Reference (Units ) Status Bacterial vaginosis [Interpretation] in Vaginal fluid Qualitative 05/28/2024 09:25:14 Negative Negative Final Negative for Bacterial Vagin osis. Correlate results with other clinical findings. Yoly sp DNA [Presence] in Vaginal fluid by Probe 05/28/2024 09:25:14 Negative Negative Final No Yoly species group RNA detected. Correlate results with other clinical findings. Yoly glabrata RNA [Presen ce] in Vaginal fluid by RAMIN with probe detection 05/28/2024 09:25:14 Negative Negative Final No Yoly glabrata RNA dete cted. Correlate results with other clinical findings. Trichomonas vaginalis DNA [P resence] in Vaginal fluid by Probe 05/28/2024 09:25:14 Negative Negative Final No Trichomonas vaginalis RNA detected. Performing Location [facility] - [address] [facility] [address]
--- OUTSIDE RECORDS SUMMARY | 2024-10-21 09:13 | External Medical Summary | Summary of Care ---
Author Name Unknown Organization [facility] Address [address] [place] [address] Phone [phone] Care Team Providers Care Ambulance Driver Name Role Phone Ivania CLEVELAND MD, Yuan Ya Primary Care Provider [phone] Reason for Visit * Reason Comments Stomach Cramps Has EGD scheduled july, but stomach pain is so bad, it makes her want to pass out. 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 90 Tablet 3 07/24/2023 Active hydrOXYzine HCl 25 MG Oral TabletIndication s:SHLOMO (generalized anxiety disorder) Take 1 Tablet by mouth every 8 hours as needed for Anxiety. 60 Tablet 1 10/16/2023 Active Ondansetron HCl 4 MG Oral Tablet Take 1 Tablet by mouth every 8 hours as needed for Nausea. Active Gabapentin 300 MG Oral Capsule (Neurontin) Take 1 Capsule by mouth in the morning and 1 Capsule before bedtime. 60 Capsule 1 03/31/2024 Active LORazepam 0.5 MG Oral Tablet (Ativan) Take 1 Tablet by mouth 2 times a day as needed for Anxiety. 30 Tablet 1 04/06/2024 Active lamoTRIgine 100 MG Oral Tablet (LaMICtal) Take 0.5 Tablets by mouth in the morning and 0.5 Tablets before bedtime. 30 Tablet 2 04/06/2024 Active Trospium Chloride 20 MG Oral Tablet (Sanctura) Take 1 Tablet by mouth every evening. 30 Tablet 6 04/09/2024 Active Sucralfate 1 GM Oral Tablet (Carafate) Take 1 Tablet by mouth in the morning and 1 Tablet at noon and 1 Tablet in the evening and 1 Tablet before bedtime. half an hour before meals and at bedtime. 120 Tablet 04/27/2024 Active Ibuprofen 800 MG Oral Tablet (Motrin) Take 1 Tablet by mouth in the morning and 1 Tablet at noon and 1 Tablet before bedtime. with food for pain. 30 Tablet 1 03/27/2024 04/27/2024 Discontinued Naproxen 500 MG Oral Tablet (Naprosyn) Take 1 Tablet by mouth 2 times a day as needed for Pain, Mild or Pain, Moderate for up to 30 doses. 30 Tablet 03/27/2024 04/27/2024 Discontinued Hospital, Clinic, or Other Facility Administered Medication Ordered Dose Route Frequency Start Date End Date Status medroxyPROGESTERone (contracep) (Depo-Provera) inj 150 mgIndications:Surveillance for Depo-Provera contraception 150 mg IM [id number] 04/14/2024 Active documented as of this encounter (statuses as of 04/27/2024) Active Problems Problem Noted Date Diagnosed Date Epigastric pain 04/27/2024 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 04/27/2024 Generalized abdominal pain 04/27/2024 Generalized anxiety disorder 02/02/2024 PTSD (post-traumatic stress disorder) 02/02/2024 Severe episode of recurrent major depressive disorder, without psychotic features 08/13/2021 POTS (postural orthostatic tachycardia syndrome) 08/18/2019 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 Never true 05/23/20 23 Within the past 12 months, t he food you bought just didn't last and you didn't have money to get more. Never true 05/23/2023 Childcare Answer Date Recorded Do you feel overwhelmed with taking care of a child, family member or friend? No 05/23/2023 Does your family need help f inding childcare? (Household - for ages 0-17 years) Not on file 05/23/2023 Clothing Answer Date Recorded Have you been unable to get clothing when it was really needed? No 05/23/2023 Is your family able to get c lothes or diapers when needed? (Household - for ages 0-17 years) Not on file 05/23/2023 Personal Safety Answer Date Recorded Do you feel unsafe or have concerns for your saf ety? No 05/23/2023 Do you have concerns for you r family's safety? (Household - for ages 0-17 years) Not on file 05/23/2023 Utilities Answer Date Recorded Do you have trouble paying y our heating, water, or electric bill? No 05/23/2023 Is your family able to pay t he heat, water, or electric bill? (Household - for ages 0-17 years) Not on file 05/23/2023 Does your family have access to good internet? (Household - for ages 0-17 years) Not on file 05/23/2023 Employment Status Answer Date Recorded Are you unemployed or without regular income? Ye s 05/23/2023 Does the household have a re gular source of income? (Household - for ages 0-17 years) Not on file 05/23/2023 Social Connections Answer Date Recorded How often do you feel lonely or isolated from th ose around you? Always 05/23/2023 Financial Resource Strain Answer Date R ecorded Do you have any trouble payi ng for your medications, or do you think you might in the future? No 05/23/2023 Does your family have troubl e paying for medicine? (Household - for ages 0-17 years) Not on file 05/23/2023 Transportation Needs Answer Date Record ed READ ONLY Do you have troubl e getting a ride to medical visits or work? Never True 05/23/2023 Does your family have a hard time getting a ride to doctors visits? (Household - for ages 0-17 years) Not on file 05/23/2023 Has lack of transportation k ept you from medical appointments, meetings, work, or from getting things needed for daily living? Check all that apply. (Adult - for ages 18 years and over) Not on file 05/23/2023 Do you (or your family) have trouble finding or paying for a ride (transportation)? (Household - for ages 0-17 years) Not on file 05/23/2023 Housing Stability Answer Date Recorded Do you currently live in a s helter or have no steady place to sleep at night? No 05/23/2023 READ ONLY Do you think you a re at risk of becoming homeless? No 05/23/2023 Does your family worry about paying for your home or becoming homeless? (Household - for ages 0-17 years) Not on file 1 Are you homeless or worried that you might be in the future? (Adult - for ages 18 years and over) Not on file Are you (or your family) tanner eless or worried that you might be in the future? (Household - for ages 0-17 years) Not on file Food Insecurity Answer Date Recorded Do you need food for this week? No 05/23/2023 Are you able to get enough f ood for your family? (Household - for ages 0-17 years) Not on file 05/23/2023 Does your family need food t his week? (Household - for ages 0-17 years) Not on file 05/23/2023 Do you always have enough fo od for your family? (Household - for ages 0-17 years) Not on file 05/23/2023 Education Answer Date Recorded What is the [...] Sign Reading Time Taken Comments Blood Pressure 124/70 04/27/2024 2:58 PM EDT Pulse 102 04/27/2024 2:58 PM EDT Temperature - - Respiratory Rate - - Oxygen Saturation - - Inhaled Oxygen Concentration - - Weight - - Height - - Body Mass Index - - documented in this encounter Progress Notes * Michelle Michelle CRNP - 04/27/2024 3:00 PM EDT Follow up Family Medicine Visit CC: Chief Complaint Patient presents with Stomach Cramps Has EGD scheduled for July, but stomach pain is so bad, it makes her want to pass out. History of Present Illness: Tiffany Jaimes is a 24 year old female presenting with ongoing generalized abdominal pain. Feels like burning. Worse with eating. She is already on omeprazole. Sometimes passes out due to the pain. She also has intermittent. She notes recent increased emotional distress. EGD-scheduled for July. Seen in ER in December with similar episodes but imaging, labs normal. 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 (Adult - for ages 18 years and over): No Does your family have trouble paying for medicine? (Household - for ages 0-17 years): Not on file Food Insecurity: No Food Insecurity (05/23/2023) Food Insecurity Do you need food for this week? (Adult - for ages 18 years and over): No Are you able to get enough food for your family? (Household - for ages 0-17 years): Not on file Does your family need food this week? (Household - for ages 0-17 years): Not on file Do you always have enough food for your family? (Household - for ages 0-17 years): Not on file Transportation Needs: No Transportation Needs (05/23/2023) Transportation Needs Do you have trouble getting a ride to medical visits or work? (Adult - for ages 18 years and over):Never True Does your family have a hard time getting a ride to doctors visits? (Household - for ages 0-17 years): Not on file Has lack of transportation kept you from medical appointments, meetings, work, or from getting things needed for daily living? Check all that apply. (Adult - for ages 18 years and over): Not on file Do you (or your family) have trouble finding or paying for a ride (transportation)? (Household - for ages 0-17 years): Not on file Social Connections: Socially Isolated (05/23/2023) Social Connections How often do you feel lonely or isolated from those around you? (Adult - for ages 18 years and over): Always Housing Stability: Low Risk (05/23/2023) Housing Stability Do you currently live in a assisted or have no steady place to sleep at night? (Adult - for ages 18 years and over): No Do you think you are at risk of becoming homeless? (Adult - for ages 18 years and over): No Does your family worry about paying for your home or becoming homeless? (Household - for ages 0-17 years): Not on file Are you homeless or worried that you might be in the future? (Adult - for ages 18 years and over): Not on file Are you (or your family) homeless or worried that you might be in the future? 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 Past Surgical History: Procedure Laterality Date DENTAL SURGERY PROCEDURE NEC GRAFT EAR CARTILAGE TO NOSE/EAR N/A 03/06/2019 GRAFT EAR CARTILAGE TO EAR OR NOSE performed by Delia Lezama MD at [place] [facility] NASAL SEPTUM CARTILAGE FOR GRAFT N/A 03/06/2019 OBTAIN CARTILAGE GRAFT NASAL SEPTUM performed by Delia Lezama MD at [place] [facility] RECONSTRUCTION OF NOSE/SEPTUM N/A 03/06/2019 RHINOPLASTY COMPLETE INCLUDING MAJOR SEPTAL REPAIR performed by Delia Lezama MD at [place] [facility] REMOVAL OF TURBINATE BONES N/A 03/06/2019 EXCISION INFERIOR TURBINATE performed by Delia Lezama MD at [place] [facility] REMOVE RIB CARTILAGE FOR GRAFT N/A 03/06/2019 OBTAIN CARTILAGE GRAFT COSTOCHONDRAL performed by Delia Lezama MD at [place] [facility] Current Outpatient Medications Medication Sig Dispense Refill Trospium Chloride 20 MG Oral Tablet (Sanctura) Take 1 Tablet by mouth every evening. 30 Tablet 6 lamoTRIgine 100 MG Oral Tablet (LaMICtal) Take 0.5 Tablets by mouth in the morning and 0.5 Tablets before bedtime. 30 Tablet 2 LORazepam 0.5 MG Oral Tablet (Ativan) Take 1 Tablet by mouth 2 times a day as needed for Anxiety. 30 Tablet 1 Gabapentin 300 MG Oral Capsule (Neurontin) Take 1 Capsule by mouth in the morning and 1 Capsule before bedtime. 60 Capsule 1 Ibuprofen 800 MG Oral Tablet (Motrin) Take 1 Tablet by mouth in the morning and 1 Tablet at noon and 1 Tablet before bedtime. with food for pain. 30 Tablet 1 hydrOXYzine HCl 25 MG Oral Tablet Take 1 Tablet by mouth every 8 hours as needed for Anxiety. 60 Tablet 1 Metoprolol Succinate ER 100 MG Oral Tablet Extended Release 24 Hour (Toprol XL) Take 0.5 Tablets bymouth in the morning and 0.5 Tablets before bedtime. 90 Tablet 3 Omeprazole 40 MG Oral Capsule Delayed Release (PriLOSEC) Take 1 Capsule by mouth in the morning. One-A-Day Womens 50+ Advantage Oral Tablet Take 1 Tablet by mouth in the morning. Probiotic Daily Oral Capsule Take 1 Cap by mouth daily. Naproxen 500 MG Oral Tablet (Naprosyn) Take 1 Tablet by mouth 2 times a day as needed for Pain, Mild or Pain, Moderate for up to 30 doses. (Patient not taking: Reported on 04/14/2024) 30 Tablet 0 Ondansetron HCl 4 MG Oral Tablet Take 1 Tablet by mouth every 8 hours as needed for Nausea. (Patient not taking: Reported on 04/14/2024) Current Facility-Administered Medications Medication Dose Route Frequency Provider Last Rate Last Admin medroxyPROGESTERone (contracep) (Depo-Provera) inj 150 mg 150 mg Intramuscular Q90 Days 150 mg at 04/14/24 0908 Review of patient's allergies indicates: Allergen Reactions Food (See Comments) Kiwi tongue escalante Most Recent Immunizations Administered Date(s) Administered COVID-19 mRNA, LNP-s, No Preserve, 2-Dose Series (Moderna) 12/11/2020 PPD 08/27/2023 Seasonal Influenza, PF, 6 M & above, IM , (FluLaval or Fluzone) 09/19/2023 TDAP (age 10 and older)(Boostrix) 07/08/2023 Review of Systems: Review of Systems Constitutional: Negative for fever. Respiratory: Negative for shortness of breath. Cardiovascular: Negative for chest pain. Gastrointestinal: Positive for abdominal pain, diarrhea and nausea. Negative for constipation and vomiting. Neurological: FAINTS DUE TO PAIN Physical Exam: BP 124/70 | Pulse 102 Physical Exam HENT: Head: Normocephalic. Eyes: Pupils: Pupils are equal, round, and reactive to light. Cardiovascular: Rate and Rhythm: Normal rate and regular rhythm. Pulmonary: Effort: Pulmonary effort is normal. Breath sounds: Normal breath sounds. Abdominal: General: Bowel sounds are normal. Palpations: Abdomen is soft. Tenderness: There is no abdominal tenderness. Musculoskeletal: General: Normal range of motion. Cervical back: Normal range of motion. Neurological: General: No focal deficit present. Mental Status: She is alert and oriented to person, place, and time. Psychiatric: Mood and Affect: Mood normal. Behavior: Behavior normal. Thought Content: Thought content normal. Judgment: Judgment normal. Assessment and Plan: 1. Epigastric pain Worse with eating EGD scheduled On PPI Add carafate QID Fenwick diet Stop taking all nsaids 2. Generalized abdominal pain Entire abd tender with gentle pressure Also with diarrhea Tried bentyl and failed Suspected IBS D Follow up with pcp 3. Current severe episode of major depressive disorder with psychotic features, unspecified whetherrecurrent (HCC) Feels stressed but working with counselor. I have advised the patient to call our office incase of any worsening or new symptoms. I spent a total of 20-29 minutes (exact time 25 mins) on the date of service in preparation, delivery, and documentation of the care provided to Tiffany Jaimes excluding any time spent in the performance of separately billed services. RONA Prather, CHSAIDY [facility] documented in this encounter Plan of Treatment Upcoming Encounters Date Type Department Care Team (Latest Contact Info) Description 05/25/2024 4:00 PM EDT Telemedicine Psychiatry Teresa Valdivia [address] [phone] Ilya Stovall MD [address] [phone] 07/07/2024 10:00 AM EST Office Visit Urology, [facility] [address] [facility] [place] [address] Sumaya Alonso PA-C [address] [place] [address] 07/09/2024 1:00 PM EST Nurse Only Gynecology/Obstetri [facility] [address] [place] [address] Gw, Nurse Obgyn Injection [address] [place] [address] 07/30/2024 11:15 AM EST Hospital Encounter ENDO [facility], Endoscopy Room [facility] [address] [place] [id number] Audi Rodriguez MD [address] [place] [address] 07/30/2024 11:15 AM EST - 07/30/2024 12:15 PM EST Surgery ENDO [facility], Endoscopy Room [facility] [address] [place] [id number] Audi Rodriguez MD [address] [place] [address] COLONOSCOPY FLEXIBLE PROXIMAL DIAGNOSTIC 04/22/2025 8:00 AM EDT Office Visit Gynecology/Obstetri [facility] [address] [place] [address] Demi Jolly PA-C [address] [place] [address] Scheduled Procedures Name Priority Associated Diagnoses Date/Ti [...] as of this encounter Visit Diagnoses Diagnosis Epigastric pain- Primary Abdominal pain, epigastric Generalized abdominal pain Abdominal pain, generalized 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
[2024-10-21] MEDS: LORazepam 0.5 MG TAB PO PRN (10:21)
--- NOTE | 2024-10-21 12:13 | Electrocardiogram Report ---
Test Reason : Blood Pressure : */* mmHG Vent. Rate : 69 BPM Atrial Rate : 69 BPM P-R Int : 110 ms QRS Dur : 74 ms QT Int : 396 ms P-R-T Axes : 57 75 47 degrees QTcB Int : 424 ms Sinus rhythm with short TN Otherwise normal ECG When compared with ECG of 09-Feb-2024 13:09, No significant change was found Confirmed by Renan Mohr ([id number]) on 10/21/2024 12:13:15 PM Referred By: REFERRED SELF Confirmed By: Renan Mohr
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
[2024-10-21] MEDS: lamoTRIgine 100 MG TAB PO SCH (21:38)
[2024-10-21] MEDS: PATIENT'S OWN ORAL CONTRACEPTIVE PO SCH (21:40)
[2024-10-22] MEDS: ACETAMINOPHEN 325 MG TAB PO PRN (05:56)
[2024-10-22 08:15] LABS: Estimated Average Glucose 103 mg/dl; Hemoglobin A1C 5.2 % (4.5-5.6)
[2024-10-22 08:31] LABS: Chol HDL Ratio 2.6 (0-5)
[2024-10-22] MEDS: DULoxetine HCL 20 MG CAP PO SCH (08:53)
[2024-10-22] MEDS: LORazepam 0.5 MG TAB PO PRN (08:56)
[2024-10-22] MEDS: lamoTRIgine 25 MG TAB PO SCH (09:34)
[2024-10-22] MEDS: GABAPENTIN 300 MG CAP PO SCH (14:21)
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
[2024-10-22] MEDS: ARIPiprazole 2 MG TAB PO SCH (20:32)
[2024-10-22] MEDS: MELATONIN 3 MG TAB PO SCH (23:35)
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
[2024-10-23 14:11] LABS: Appearance Urine Clear (Clear); Bacteria Urine Automated None Seen (None Seen); Bilirubin Urine Negative (Negative); Blood Urine Negative (Negative); Cast Urine Automated 0-2 /lpf (0-2); Color Urine Yellow; Epithelial Cell Urine Auto 0-2 /hpf (0-2); Glucose Urine UA Negative (Negative); Ketones Urine Negative (Negative); Leukocyte Esterase Urine 1+ (Negative); Nitrite Urine Negative (Negative); Protein Urine Negative (Negative); RBC Urine Automated 0-2 /hpf (0-2); Specific Gravity Urine 1.008 (1.000-1.030); Urobilinogen Urine Negative (Negative); pH Urine 6.5 (4.5-7.5)
[2024-10-23] MEDS: cloNIDine HCL 0.1 MG TAB PO SCH (21:02)
[2024-10-24] MEDS: hydrOXYzine HCl 25 MG TAB PO PRN (04:52)
[2024-10-24] MEDS: MAGNESIUM HYDROXIDE SUSP 30 ML UDC PO PRN (13:08)
[2024-10-24] MEDS ORDERED: POLYETHYLENE (MIRALAX) 17 GM PACK PO PRN (13:59)
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
[2024-10-24] MEDS: MELATONIN 3 MG TAB PO SCH (22:26)
[2024-10-24] MEDS: cloNIDine HCL 0.1 MG TAB PO SCH (22:27)
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
== END 2024-10-25 10:59 | disposition home or self-care (01) | DRG 881 ==
LOC: ED 18:00 → 3S 22:12 → SUATTDRO 22:16